=== PATIENT | female | born 1940 | race Caucasian/White ===

== ENCOUNTER 2017-06-27 01:00 | Inpatient (IN) ==
[2017-06-27] MEDS ORDERED: MORPHINE 2 MG/1 ML SYRINGE IV STA (02:45)
[2017-06-27] MEDS ORDERED: ALUM/MAG/SIMETH/LIDO VISC 1:1 30 ML BOTTLE PO STA (02:45)
[2017-06-27] MEDS ORDERED: ASPIRIN 325 MG TABLET PO STA (02:45)
[2017-06-27] MEDS ORDERED: SODIUM CHLORIDE 0.9% 500 ML IV STA (02:45)
[2017-06-27] MEDS ORDERED: NITROGLYCERIN 2% OINT 1 INCH/GM PACK TOP STA (02:45)
[2017-06-27] MEDS ORDERED: ONDANSETRON 4 MG/2 ML VIAL IV STA ×2 (02:45→06:48)
[2017-06-27] MEDS ORDERED: ASPIRIN 325 MG TABLET ONE (02:49)
[2017-06-27] MEDS ORDERED: MORPHINE 2 MG/1 ML SYRINGE ONE (02:49)
[2017-06-27] MEDS ORDERED: NITROGLYCERIN 2% OINT 1 INCH/GM PACK TOP ONE (02:49)
[2017-06-27] MEDS ORDERED: ONDANSETRON 4 MG/2 ML VIAL ONE ×2 (02:49→06:26)
[2017-06-27] MEDS ORDERED: ALUM/MAG/SIMETH/LIDO VISC 1:1 30 ML BOTTLE PO ONE (02:50)
[2017-06-27 02:53] LABS: Basophils # 0.1 10*3/uL (0.0-0.2); Basophils % 0.7 % (0.0-0.8); Eosinophils # 0.1 10*3/uL (0.0-0.87); Eosinophils % 1.9 % (0.00-10.9); Hematocrit 36.2 VOL% (35.7-47.0); Hemoglobin 11.6 GM/DL (12.0-16.0); Immature Granulocytes % 0.3 %; Immature Granulocytes Absolute 0.02 #; Lymphocytes # 1.1 10*3/uL (1.4-4.0); Lymphocytes % 16.4 % (21.3-54.2); Mean Corpuscular Hemoglobin 26 PG (27-34); Mean Corpuscular Volume 81.7 FL (87-102); Mean Platelet Volume 11.2 FL (9.6-12.0); Monocytes # 0.8 10*3/uL (0.11-0.8); Monocytes % 11.3 % (1.7-12.7); Neutrophils # 4.7 10*3/uL (1.4-7.4); Neutrophils % 69.4 % (38.7-73.9); Platelet Count 190 T/CUMM (130-400); Red Blood Count 4.43 MC/CUMM (3.8-5.5); Red Cell Distribution Width 17.2 % (9.3-17.3); White Blood Count 6.7 T/CUMM (4-12)
[2017-06-27 03:01] LABS: PT Patient Result 10.1 SECS
[2017-06-27 03:11] LABS: Albumin 3.5 G/DL (3.4-5.0); Bilirubin,Total 0.7 MG/DL (0.2-1.0); Calcium 8.6 MG/DL (8.5-10.1); Magnesium 2.2 MG/DL (1.8-2.4); Osmolality,Calculated 277.7 MOS/KG (273-304); Potassium 4.3 MMOL/L (3.5-5.1); Total Protein 6.3 G/DL (6.4-8.3)
[2017-06-27 03:26] LABS: Apearance,Urine CLEAR (Clear); Bilirubin,Urine Negative (Negative); Blood, Urine Small mg/dL (Negative); Glucose,Urine (UA) Negative (Negative); Ketones,Urine Negative (Negative); Mucus,Urine Occasional /LPF (Occasional); Nitrite,Urine Negative (Negative); Protein,Urine Negative; RBC,Urine 1 /HPF (0-4); Squamous Epithelial Cell,Urine Occasional /HPF (0-10); Urine Color Yellow (Yellow); Urine Specific Gravity 1.011 (1.001-1.035); Urine Urobilinogen < 2.0 EU/DL (0.2-1.0); WBC,Urine 3 /HPF (0-6)
[2017-06-27] MEDS ORDERED: cefTRIAXone 1,000 MG in SODIUM CHLORIDE 0.9% 100 ML IV STA (03:58)
[2017-06-27] MEDS ORDERED: cefTRIAXone 1,000 MG VIAL ONE (04:07)
[2017-06-27] MEDS ORDERED: SODIUM CHLORIDE 0.9% 100 ML IV ONE (04:07)
[2017-06-27] MEDS ORDERED: ONDANSETRON 4 MG/2 ML VIAL IV PRN (08:05)
[2017-06-27] MEDS ORDERED: MORPHINE 2 MG/1 ML SYRINGE IV PRN (08:05)
[2017-06-27] MEDS ORDERED: ACETAMINOPHEN 325 MG TABLET PO PRN (08:05)
[2017-06-27 08:58] LABS: Risk Ratio 8.64; Thyroid Stimulating Hormone 1.46 uIU/ml (0.358-3.74); VLDL CHOLESTEROL 64.4 MG/DL
[2017-06-27] MEDS ORDERED: ENOXAPARIN 80 MG/0.8 ML SYRINGE SUBCUT SCH (09:00)
[2017-06-27] MEDS ORDERED: ENOXAPARIN 80 MG/0.8 ML SYRINGE SUBCUT ONE (10:27)
[2017-06-27] MEDS ORDERED: ASPIRIN CHEW 81 MG TABLET PO ONE (10:27)
[2017-06-27] MEDS ORDERED: PANTOPRAZOLE 40 MG TABLET PO ONE (10:27)
[2017-06-27] MEDS ORDERED: DOCUSATE SODIUM 100 MG CAPSULE ONE (10:27)
[2017-06-27] MEDS: DOCUSATE SODIUM 100 MG CAPSULE PO SCH ×2 (10:28→20:24)
[2017-06-27] MEDS: PANTOPRAZOLE 40 MG TABLET PO SCH (10:28)
[2017-06-27] MEDS: CIPROFLOXACIN 250 MG TABLET PO SCH ×2 (11:10→20:24)
[2017-06-27] MEDS ORDERED: METOPROLOL SUCCINATE XL 25 MG TABLET PO ONE (15:40)
[2017-06-27] MEDS: ATORVASTATIN 40 MG TABLET PO SCH (18:33)
[2017-06-27] MEDS: APIXABAN 5 MG TABLET PO SCH (20:23)
[2017-06-27] MEDS: ASCORBIC ACID 500 MG TABLET PO SCH (20:24)
[2017-06-27] MEDS ORDERED: CLORAZEPATE 3.75 MG TABLET PO PRN (21:43)
[2017-06-28 05:37] LABS: Basophils % 0.3 % (0.0-0.8); Eosinophils # 0.1 10*3/uL (0.0-0.87); Eosinophils % 1.2 % (0.00-10.9); Hematocrit 36.6 VOL% (35.7-47.0); Hemoglobin 11.6 GM/DL (12.0-16.0); Immature Granulocytes % 0.5 %; Immature Granulocytes Absolute 0.03 #; Lymphocytes # 1.1 10*3/uL (1.4-4.0); Lymphocytes % 18.2 % (21.3-54.2); Mean Corpuscular HGB Conc 31.7 GM/DL (32-36); Mean Corpuscular Hemoglobin 26 PG (27-34); Mean Corpuscular Volume 81.7 FL (87-102); Mean Platelet Volume 11.2 FL (9.6-12.0); Monocytes # 0.5 10*3/uL (0.11-0.8); Monocytes % 8.8 % (1.7-12.7); Neutrophils # 4.2 10*3/uL (1.4-7.4); Platelet Count 190 T/CUMM (130-400); Red Blood Count 4.48 MC/CUMM (3.8-5.5); Red Cell Distribution Width 17.1 % (9.3-17.3); White Blood Count 5.9 T/CUMM (4-12)
[2017-06-28 06:02] LABS: Calcium 9.1 MG/DL (8.5-10.1); Magnesium 2.4 MG/DL (1.8-2.4); Osmolality,Calculated 281.5 MOS/KG (273-304); Potassium 4.5 MMOL/L (3.5-5.1)
[2017-06-28 06:12] LABS: Risk Ratio 7.58
[2017-06-28] MEDS ORDERED: DIGOXIN 0.125 MG TABLET PO SCH (09:00)
[2017-06-28] MEDS ORDERED: ASPIRIN CHEW 81 MG TABLET PO SCH (09:00)
[2017-06-28] MEDS: ASCORBIC ACID 500 MG TABLET PO SCH ×2 (09:23→22:09)
[2017-06-28] MEDS: LEVOTHYROXINE 112 MCG TABLET PO SCH (09:23)
[2017-06-28] MEDS: MAGNESIUM OXIDE 400 MG TABLET PO SCH (09:24)
[2017-06-28] MEDS: DILTIAZEM CD 180 MG CAPSULE PO SCH (09:25)
[2017-06-28] MEDS: PANTOPRAZOLE 40 MG TABLET PO SCH (09:25)
[2017-06-28] MEDS: APIXABAN 5 MG TABLET PO SCH ×2 (09:25→22:09)
[2017-06-28] MEDS: METOPROLOL SUCCINATE XL 50 MG TABLET PO SCH (09:26)
[2017-06-28] MEDS: DOCUSATE SODIUM 100 MG CAPSULE PO SCH ×3 (09:26→22:09)
[2017-06-28] MEDS: ATORVASTATIN 40 MG TABLET PO SCH (09:26)
[2017-06-28] MEDS: CIPROFLOXACIN 250 MG TABLET PO SCH ×2 (09:26→22:09)
[2017-06-28] MEDS ORDERED: PRAMIPEXOLE 0.25 MG TABLET PO SCH (21:00)
[2017-06-28] MEDS: clonazePAM 0.5 MG TABLET PO SCH (22:09)
[2017-06-29 05:04] LABS: Basophils % 0.6 % (0.0-0.8); Eosinophils # 0.1 10*3/uL (0.0-0.87); Eosinophils % 2.3 % (0.00-10.9); Hematocrit 35.3 VOL% (35.7-47.0); Hemoglobin 10.8 GM/DL (12.0-16.0); Immature Granulocytes % 0.2 %; Immature Granulocytes Absolute 0.01 #; Lymphocytes # 1.2 10*3/uL (1.4-4.0); Lymphocytes % 23.4 % (21.3-54.2); Mean Corpuscular HGB Conc 30.6 GM/DL (32-36); Mean Corpuscular Hemoglobin 25 PG (27-34); Mean Corpuscular Volume 82.7 FL (87-102); Mean Platelet Volume 10.6 FL (9.6-12.0); Monocytes # 0.5 10*3/uL (0.11-0.8); Monocytes % 10.2 % (1.7-12.7); Neutrophils # 3.3 10*3/uL (1.4-7.4); Neutrophils % 63.3 % (38.7-73.9); Platelet Count 215 T/CUMM (130-400); Red Blood Count 4.27 MC/CUMM (3.8-5.5); Red Cell Distribution Width 17.2 % (9.3-17.3); White Blood Count 5.2 T/CUMM (4-12)
[2017-06-29 05:30] LABS: Calcium 8.9 MG/DL (8.5-10.1); Magnesium 2.3 MG/DL (1.8-2.4); Osmolality,Calculated 282.3 MOS/KG (273-304); Potassium 4.3 MMOL/L (3.5-5.1)
[2017-06-29] MEDS: LEVOTHYROXINE 112 MCG TABLET PO SCH (06:25)
[2017-06-29] MEDS ORDERED: tiZANidine 4 MG TABLET PO SCH (09:00)
[2017-06-29] MEDS ORDERED: SERTRALINE 100 MG TABLET PO SCH (09:00)
[2017-06-29] MEDS: ASCORBIC ACID 500 MG TABLET PO SCH (09:22)
[2017-06-29] MEDS: ATORVASTATIN 40 MG TABLET PO SCH (09:22)
[2017-06-29] MEDS: DOCUSATE SODIUM 100 MG CAPSULE PO SCH (09:23)
[2017-06-29] MEDS: MAGNESIUM OXIDE 400 MG TABLET PO SCH (09:23)
[2017-06-29] MEDS: CIPROFLOXACIN 250 MG TABLET PO SCH (09:23)
[2017-06-29] MEDS: clonazePAM 0.5 MG TABLET PO SCH (09:23)
[2017-06-29] MEDS: PANTOPRAZOLE 40 MG TABLET PO SCH (09:24)
[2017-06-29] MEDS: METOPROLOL SUCCINATE XL 50 MG TABLET PO SCH (09:24)
[2017-06-29] MEDS: APIXABAN 5 MG TABLET PO SCH (09:24)
[2017-06-29] MEDS: DILTIAZEM CD 180 MG CAPSULE PO SCH (09:25)
[2017-06-29 16:56] VITALS: BP 92/50
== END 2017-06-29 17:54 | disposition home health service (06) | DRG 309 ==
LOC: EDUNIT# → EDBD → N.ED 01:00 → N.EDINP 05:57 → N.TELES 12:25
PROVIDERS: ADMIT Internal Medicine; ATTEND Internal Medicine

== ENCOUNTER 2017-07-03 10:06 | Inpatient (IN) ==
[2017-07-03] MEDS ORDERED: DILTIAZEM INJ 100 MG in SODIUM CHLORIDE 0.9% 100 ML IV SCH (11:00)
[2017-07-03 11:05] LABS: Basophils % 0.4 % (0.0-0.8); Eosinophils # 0.1 10*3/uL (0.0-0.87); Eosinophils % 1.4 % (0.00-10.9); Hematocrit 37.7 VOL% (35.7-47.0); Immature Granulocytes % 0.2 %; Immature Granulocytes Absolute 0.02 #; Lymphocytes # 1.1 10*3/uL (1.4-4.0); Lymphocytes % 11.2 % (21.3-54.2); Mean Corpuscular HGB Conc 31.8 GM/DL (32-36); Mean Corpuscular Hemoglobin 26 PG (27-34); Mean Corpuscular Volume 81.1 FL (87-102); Mean Platelet Volume 10.8 FL (9.6-12.0); Monocytes # 0.6 10*3/uL (0.11-0.8); Monocytes % 6.5 % (1.7-12.7); Neutrophils % 80.3 % (38.7-73.9); Platelet Count 261 T/CUMM (130-400); Red Blood Count 4.65 MC/CUMM (3.8-5.5); Red Cell Distribution Width 16.7 % (9.3-17.3); White Blood Count 9.9 T/CUMM (4-12)
[2017-07-03 11:10] LABS: PT Patient Result 10.5 SECS; Partial Thromboplastin Time 26.5 SECS (0-40)
[2017-07-03 11:22] LABS: Alanine Aminotransferase 22 U/L (13-56); Albumin 3.8 G/DL (3.4-5.0); Alkaline Phosphatase 103 U/L (45-117); Aspartate Amino Transferase 22 U/L (0-37); Blood Urea Nitrogen 13 MG/DL (7-18); Calcium 9.1 MG/DL (8.5-10.1); Glucose 150 MG/DL (74-106); Magnesium 1.8 MG/DL (1.8-2.4); Osmolality,Calculated 279.5 MOS/KG (273-304); Potassium 4.2 MMOL/L (3.5-5.1); Sodium 139 MMOL/L (136-145); Troponin I Only < 0.015 NG/ML (0.00-0.045)
[2017-07-03] MEDS ORDERED: DILTIAZEM 100 MG VIAL.ADD IV ONE ×2 (11:37→11:42)
[2017-07-03] MEDS: DILTIAZEM CD 180 MG CAPSULE PO SCH (18:00)
[2017-07-03 18:18] LABS: Apearance,Urine CLEAR (Clear); Bilirubin,Urine Negative (Negative); Blood, Urine Negative (Negative); Glucose,Urine (UA) Negative (Negative); Ketones,Urine Negative (Negative); Mucus,Urine Occasional /LPF (Occasional); Nitrite,Urine Negative (Negative); Protein,Urine Negative; RBC,Urine 4 /HPF (0-4); Squamous Epithelial Cell,Urine Occasional /HPF (0-10); Urine Color Yellow (Yellow); Urine Specific Gravity 1.053 (1.001-1.035); Urine Urobilinogen < 2.0 EU/DL (0.2-1.0); WBC,Urine 1 /HPF (0-6)
[2017-07-03] MEDS: clonazePAM 0.5 MG TABLET PO SCH (20:42)
[2017-07-03] MEDS: APIXABAN 5 MG TABLET PO SCH (20:42)
[2017-07-03] MEDS: PRAMIPEXOLE 0.25 MG TABLET PO SCH (20:42)
[2017-07-03] MEDS: ASCORBIC ACID 500 MG TABLET PO SCH (20:42)
[2017-07-04] MEDS: ONDANSETRON 4 MG/2 ML VIAL IV PRN (08:43)
[2017-07-04] MEDS: METOPROLOL SUCCINATE XL 50 MG TABLET PO SCH (09:17)
[2017-07-04] MEDS: ASCORBIC ACID 500 MG TABLET PO SCH ×2 (09:17→20:39)
[2017-07-04] MEDS: ATORVASTATIN 40 MG TABLET PO SCH (09:17)
[2017-07-04] MEDS: SERTRALINE 100 MG TABLET PO SCH (09:17)
[2017-07-04] MEDS: clonazePAM 0.5 MG TABLET PO SCH ×2 (09:18→20:39)
[2017-07-04] MEDS: APIXABAN 5 MG TABLET PO SCH ×2 (09:18→20:39)
[2017-07-04] MEDS: DILTIAZEM CD 180 MG CAPSULE PO SCH (09:19)
[2017-07-04] MEDS: LEVOTHYROXINE 112 MCG TABLET PO SCH (09:19)
[2017-07-04] MEDS: MAGNESIUM OXIDE 400 MG TABLET PO SCH (09:19)
[2017-07-04] MEDS: tiZANidine 4 MG TABLET PO SCH (09:19)
[2017-07-04 10:26] LABS: Basophils % 0.6 % (0.0-0.8); Eosinophils # 0.1 10*3/uL (0.0-0.87); Eosinophils % 1.8 % (0.00-10.9); Hematocrit 35.9 VOL% (35.7-47.0); Hemoglobin 11.2 GM/DL (12.0-16.0); Immature Granulocytes % 0.3 %; Immature Granulocytes Absolute 0.02 #; Lymphocytes # 0.8 10*3/uL (1.4-4.0); Lymphocytes % 12.3 % (21.3-54.2); Mean Corpuscular HGB Conc 31.2 GM/DL (32-36); Mean Corpuscular Hemoglobin 25 PG (27-34); Mean Corpuscular Volume 80.3 FL (87-102); Mean Platelet Volume 10.7 FL (9.6-12.0); Monocytes # 0.5 10*3/uL (0.11-0.8); Monocytes % 6.9 % (1.7-12.7); Neutrophils # 5.3 10*3/uL (1.4-7.4); Neutrophils % 78.1 % (38.7-73.9); Platelet Count 235 T/CUMM (130-400); Red Blood Count 4.47 MC/CUMM (3.8-5.5); Red Cell Distribution Width 16.5 % (9.3-17.3); White Blood Count 6.8 T/CUMM (4-12)
[2017-07-04 10:47] LABS: Calcium 9.3 MG/DL (8.5-10.1); Osmolality,Calculated 280.4 MOS/KG (273-304); Potassium 4.3 MMOL/L (3.5-5.1)
[2017-07-04] MEDS: DIGOXIN 0.125 MG TABLET PO SCH (15:02)
[2017-07-04] MEDS: PRAMIPEXOLE 0.25 MG TABLET PO SCH (20:39)
[2017-07-04] MEDS ORDERED: HALOPERIDOL 5 MG/ML AMP IM ONE (22:32)
[2017-07-05] MEDS: ONDANSETRON 4 MG/2 ML VIAL IV PRN (00:15)
[2017-07-05] MEDS: ACETAMINOPHEN 325 MG TABLET PO PRN (01:50)
[2017-07-05 04:43] LABS: Basophils % 0.4 % (0.0-0.8); Eosinophils # 0.1 10*3/uL (0.0-0.87); Eosinophils % 1.6 % (0.00-10.9); Hematocrit 34.4 VOL% (35.7-47.0); Hemoglobin 10.6 GM/DL (12.0-16.0); Immature Granulocytes % 0.3 %; Immature Granulocytes Absolute 0.02 #; Lymphocytes # 1.3 10*3/uL (1.4-4.0); Lymphocytes % 15.8 % (21.3-54.2); Mean Corpuscular HGB Conc 30.8 GM/DL (32-36); Mean Corpuscular Hemoglobin 26 PG (27-34); Mean Corpuscular Volume 83.1 FL (87-102); Mean Platelet Volume 10.3 FL (9.6-12.0); Monocytes # 0.7 10*3/uL (0.11-0.8); Monocytes % 8.3 % (1.7-12.7); Neutrophils # 5.9 10*3/uL (1.4-7.4); Neutrophils % 73.6 % (38.7-73.9); Platelet Count 219 T/CUMM (130-400); Red Blood Count 4.14 MC/CUMM (3.8-5.5); Red Cell Distribution Width 16.7 % (9.3-17.3)
[2017-07-05 05:14] LABS: Magnesium 2.1 MG/DL (1.8-2.4); Osmolality,Calculated 283.3 MOS/KG (273-304); Potassium 4.2 MMOL/L (3.5-5.1)
[2017-07-05] MEDS: MAGNESIUM OXIDE 400 MG TABLET PO SCH (09:26)
[2017-07-05] MEDS: ATORVASTATIN 40 MG TABLET PO SCH (09:26)
[2017-07-05] MEDS: ASCORBIC ACID 500 MG TABLET PO SCH ×2 (09:26→20:41)
[2017-07-05] MEDS: SERTRALINE 100 MG TABLET PO SCH (09:27)
[2017-07-05] MEDS: tiZANidine 4 MG TABLET PO SCH (09:27)
[2017-07-05] MEDS: DILTIAZEM CD 180 MG CAPSULE PO SCH (09:28)
[2017-07-05] MEDS: LEVOTHYROXINE 112 MCG TABLET PO SCH (09:28)
[2017-07-05] MEDS: clonazePAM 0.5 MG TABLET PO SCH ×2 (09:28→20:42)
[2017-07-05] MEDS: APIXABAN 5 MG TABLET PO SCH ×2 (09:28→20:42)
[2017-07-05] MEDS: METOPROLOL SUCCINATE XL 50 MG TABLET PO SCH ×2 (09:28→14:27)
[2017-07-05] MEDS: DILTIAZEM CD 240 MG CAPSULE PO SCH (14:26)
[2017-07-05] MEDS: DIGOXIN 0.125 MG TABLET PO SCH (15:05)
[2017-07-05] MEDS: PRAMIPEXOLE 0.25 MG TABLET PO SCH (20:42)
[2017-07-06] MEDS: ACETAMINOPHEN 325 MG TABLET PO PRN (00:58)
[2017-07-06] MEDS: LEVOTHYROXINE 112 MCG TABLET PO SCH (06:18)
[2017-07-06 08:37] VITALS: BP 161/64
[2017-07-06] MEDS: DILTIAZEM CD 240 MG CAPSULE PO SCH (09:13)
[2017-07-06] MEDS: ASCORBIC ACID 500 MG TABLET PO SCH (09:13)
[2017-07-06] MEDS: ATORVASTATIN 40 MG TABLET PO SCH (09:14)
[2017-07-06] MEDS: METOPROLOL SUCCINATE XL 50 MG TABLET PO SCH (09:14)
[2017-07-06] MEDS: SERTRALINE 100 MG TABLET PO SCH (09:14)
[2017-07-06] MEDS: APIXABAN 5 MG TABLET PO SCH (09:14)
[2017-07-06] MEDS: MAGNESIUM OXIDE 400 MG TABLET PO SCH (09:14)
[2017-07-06] MEDS: tiZANidine 4 MG TABLET PO SCH (09:15)
[2017-07-06] MEDS: clonazePAM 0.5 MG TABLET PO SCH (09:15)
== END 2017-07-06 10:50 | disposition home health service (06) | DRG 310 ==
LOC: N.ED 10:06 → N.EDINP 14:59 → N.TELEN 15:58

== ENCOUNTER 2017-07-27 10:54 | Observation (INO) ==
[2017-07-27] MEDS ORDERED: ASPIRIN 325 MG TABLET PO STA (11:10)
[2017-07-27 11:21] LABS: Basophils % 0.2 % (0.0-0.8); Eosinophils # 0.2 10*3/uL (0.0-0.87); Eosinophils % 2.4 % (0.00-10.9); Hematocrit 35.4 VOL% (35.7-47.0); Hemoglobin 10.9 GM/DL (12.0-16.0); Immature Granulocytes % 0.3 %; Immature Granulocytes Absolute 0.03 #; Lymphocytes # 1.4 10*3/uL (1.4-4.0); Lymphocytes % 15.9 % (21.3-54.2); Mean Corpuscular HGB Conc 30.8 GM/DL (32-36); Mean Corpuscular Hemoglobin 25 PG (27-34); Mean Corpuscular Volume 82.3 FL (87-102); Mean Platelet Volume 10.1 FL (9.6-12.0); Monocytes # 0.7 10*3/uL (0.11-0.8); Monocytes % 7.9 % (1.7-12.7); Neutrophils # 6.6 10*3/uL (1.4-7.4); Neutrophils % 73.3 % (38.7-73.9); Platelet Count 263 T/CUMM (130-400); Red Cell Distribution Width 17.1 % (9.3-17.3)
[2017-07-27 11:28] LABS: PT Patient Result 10.8 SECS; Partial Thromboplastin Time 27.5 SECS (0-40)
[2017-07-27] MEDS ORDERED: ASPIRIN 325 MG TABLET ONE (11:46)
[2017-07-27 11:54] LABS: Albumin 3.6 G/DL (3.4-5.0); Bilirubin,Total 0.8 MG/DL (0.2-1.0); Calcium 8.7 MG/DL (8.5-10.1); Osmolality,Calculated 279.7 MOS/KG (273-304); Potassium 4.3 MMOL/L (3.5-5.1); Total Protein 6.7 G/DL (6.4-8.3)
[2017-07-27 12:38] LABS: Apearance,Urine CLEAR (Clear); Bilirubin,Urine Negative (Negative); Blood, Urine Negative (Negative); Glucose,Urine (UA) Negative (Negative); Hyaline Casts,Urine 1 /LPF (0-3); Ketones,Urine Negative (Negative); Mucus,Urine Occasional /LPF (Occasional); Nitrite,Urine Negative (Negative); Protein,Urine Negative; RBC,Urine 1 /HPF (0-4); Urine Color Yellow (Yellow); Urine Specific Gravity 1.013 (1.001-1.035); Urine Urobilinogen < 2.0 EU/DL (0.2-1.0); WBC,Urine <1 /HPF (0-6)
[2017-07-27] MEDS ORDERED: ONDANSETRON 4 MG/2 ML VIAL IV PRN (14:40)
[2017-07-27] MEDS ORDERED: MORPHINE 10 MG/1 ML VIAL IV PRN (14:40)
[2017-07-27] MEDS ORDERED: DOCUSATE SODIUM 100 MG CAPSULE PO PRN (14:40)
[2017-07-27] MEDS ORDERED: diphenhydrAMINE CAP 25 MG CAPSULE PO PRN (14:40)
[2017-07-27] MEDS ORDERED: guaiFENesin/DM ER 600-30 MG TABLET PO PRN (14:40)
[2017-07-27] MEDS ORDERED: ACETAMINOPHEN 325 MG TABLET PO PRN ×2 (14:40)
[2017-07-27] MEDS ORDERED: traMADol 50 MG TABLET PO PRN (14:47)
[2017-07-27] MEDS ORDERED: tiZANidine 4 MG TABLET PO PRN (14:47)
[2017-07-27] MEDS ORDERED: ENOXAPARIN 30 MG/0.3 ML SYRINGE SUBCUT SCH (15:00)
[2017-07-27 15:28] LABS: Risk Ratio 3.05; VLDL CHOLESTEROL 42.2 MG/DL
[2017-07-27 16:11] LABS: Troponin I Only < 0.015 NG/ML (0.00-0.045)
[2017-07-27] MEDS: clonazePAM 0.5 MG TABLET PO SCH ×3 (16:42→20:31)
[2017-07-27] MEDS: PANTOPRAZOLE 40 MG TABLET PO SCH ×2 (16:43→16:57)
[2017-07-27] MEDS: SODIUM CHLORIDE 0.9% 1,000 ML IV SCH (16:58)
[2017-07-27 18:31] LABS: Troponin I Only < 0.015 NG/ML (0.00-0.045)
[2017-07-27] MEDS: APIXABAN 5 MG TABLET PO SCH (20:31)
[2017-07-27] MEDS ORDERED: PRAMIPEXOLE 0.25 MG TABLET PO SCH (21:00)
[2017-07-27] MEDS ORDERED: SERTRALINE 100 MG TABLET PO SCH (21:00)
[2017-07-27 21:06] LABS: Troponin I Only 0.016 NG/ML (0.00-0.045)
[2017-07-28 00:01] LABS: Troponin I Only < 0.015 NG/ML (0.00-0.045)
[2017-07-28 05:24] LABS: Basophils % 0.4 % (0.0-0.8); Eosinophils # 0.2 10*3/uL (0.0-0.87); Hematocrit 33.5 VOL% (35.7-47.0); Hemoglobin 10.6 GM/DL (12.0-16.0); Immature Granulocytes % 0.4 %; Immature Granulocytes Absolute 0.03 #; Lymphocytes # 1.1 10*3/uL (1.4-4.0); Lymphocytes % 13.9 % (21.3-54.2); Mean Corpuscular HGB Conc 31.6 GM/DL (32-36); Mean Corpuscular Hemoglobin 26 PG (27-34); Mean Corpuscular Volume 81.9 FL (87-102); Mean Platelet Volume 10.7 FL (9.6-12.0); Monocytes # 0.5 10*3/uL (0.11-0.8); Neutrophils # 5.8 10*3/uL (1.4-7.4); Neutrophils % 76.3 % (38.7-73.9); Platelet Count 210 T/CUMM (130-400); Red Blood Count 4.09 MC/CUMM (3.8-5.5); Red Cell Distribution Width 17.2 % (9.3-17.3); White Blood Count 7.5 T/CUMM (4-12)
[2017-07-28 05:54] LABS: Calcium 8.2 MG/DL (8.5-10.1); Osmolality,Calculated 284.3 MOS/KG (273-304); Potassium 4.7 MMOL/L (3.5-5.1)
[2017-07-28] MEDS: SODIUM CHLORIDE 0.9% 1,000 ML IV SCH (05:59)
[2017-07-28] MEDS ORDERED: LEVOTHYROXINE 112 MCG TABLET PO SCH (06:30)
[2017-07-28] MEDS ORDERED: MAGNESIUM OXIDE 400 MG TABLET PO SCH (09:00)
[2017-07-28] MEDS ORDERED: ATORVASTATIN 40 MG TABLET PO SCH (09:00)
[2017-07-28] MEDS ORDERED: DILTIAZEM CD 240 MG CAPSULE PO SCH (09:00)
[2017-07-28] MEDS ORDERED: DILTIAZEM CD 180 MG CAPSULE PO SCH (10:00)
[2017-07-28] MEDS: clonazePAM 0.5 MG TABLET PO SCH (10:12)
[2017-07-28] MEDS: PANTOPRAZOLE 40 MG TABLET PO SCH (10:13)
[2017-07-28] MEDS: APIXABAN 5 MG TABLET PO SCH (10:13)
[2017-07-28 11:37] VITALS: BP 147/86
== END 2017-07-28 12:03 | disposition home or self-care (01) ==
LOC: EDBD → EDUNIT# → N.ED 10:54 → N.EDINP 10:54 → N.TELEN 15:35

== ENCOUNTER 2017-08-03 04:31 | Inpatient (IN) ==
[2017-08-03] MEDS ORDERED: KETOROLAC 30 MG/1 ML VIAL IV STA (05:27)
[2017-08-03 05:39] LABS: Basophils % 0.4 % (0.0-0.8); Eosinophils # 0.2 10*3/uL (0.0-0.87); Eosinophils % 2.6 % (0.00-10.9); Hematocrit 35.2 VOL% (35.7-47.0); Hemoglobin 10.8 GM/DL (12.0-16.0); Immature Granulocytes % 0.5 %; Immature Granulocytes Absolute 0.04 #; Lymphocytes # 1.1 10*3/uL (1.4-4.0); Lymphocytes % 12.4 % (21.3-54.2); Mean Corpuscular HGB Conc 30.7 GM/DL (32-36); Mean Corpuscular Hemoglobin 26 PG (27-34); Mean Corpuscular Volume 83.4 FL (87-102); Mean Platelet Volume 11.1 FL (9.6-12.0); Monocytes # 0.6 10*3/uL (0.11-0.8); Monocytes % 6.5 % (1.7-12.7); Neutrophils # 6.7 10*3/uL (1.4-7.4); Neutrophils % 77.6 % (38.7-73.9); Platelet Count 234 T/CUMM (130-400); Red Blood Count 4.22 MC/CUMM (3.8-5.5); Red Cell Distribution Width 17.3 % (9.3-17.3); White Blood Count 8.6 T/CUMM (4-12)
[2017-08-03 05:51] LABS: Albumin 3.6 G/DL (3.4-5.0); Bilirubin,Total 1.1 MG/DL (0.2-1.0); Calcium 8.6 MG/DL (8.5-10.1); Osmolality,Calculated 282.5 MOS/KG (273-304); Potassium 4.7 MMOL/L (3.5-5.1); Total Protein 6.9 G/DL (6.4-8.3)
[2017-08-03] MEDS ORDERED: KETOROLAC 30 MG/1 ML VIAL ONE (05:58)
[2017-08-03] MEDS ORDERED: GLUCAGON 1 MG VIAL IM PRN (08:03)
[2017-08-03] MEDS ORDERED: ONDANSETRON 4 MG/2 ML VIAL IV PRN (08:03)
[2017-08-03] MEDS ORDERED: DEXTROSE 50% 25 GM/50 ML VIAL IV PRN (08:03)
[2017-08-03] MEDS ORDERED: SODIUM CHLORIDE 0.9% 1,000 ML IV SCH (08:30)
[2017-08-03] MEDS: APIXABAN 5 MG TABLET PO SCH ×2 (11:07→21:01)
[2017-08-03] MEDS: PANTOPRAZOLE 40 MG TABLET PO SCH (11:07)
[2017-08-03] MEDS: ATORVASTATIN 40 MG TABLET PO SCH (11:08)
[2017-08-03] MEDS ORDERED: FUROSEMIDE 20 MG/2 ML VIAL IV ONE (12:30)
[2017-08-03] MEDS: INSULIN LISPRO 100 UNIT/ML SUBCUT SCH ×3 (12:43→21:04)
[2017-08-03 15:03] LABS: Apearance,Urine CLEAR (Clear); Bacteria,Urine Occasional /HPF (Few); Bilirubin,Urine Negative (Negative); Blood, Urine Negative (Negative); Glucose,Urine (UA) Negative (Negative); Hyaline Casts,Urine 2 /LPF (0-3); Ketones,Urine Negative (Negative); Mucus,Urine Occasional /LPF (Occasional); Nitrite,Urine Negative (Negative); Protein,Urine Negative; RBC,Urine 1 /HPF (0-4); Squamous Epithelial Cell,Urine Occasional /HPF (0-10); Urine Color Yellow (Yellow); Urine Specific Gravity 1.009 (1.001-1.035); Urine Urobilinogen < 2.0 EU/DL (0.2-1.0); WBC,Urine 3 /HPF (0-6)
[2017-08-03] MEDS: SERTRALINE 50 MG TABLET PO SCH (21:01)
[2017-08-03] MEDS: ASCORBIC ACID 500 MG TABLET PO SCH (21:01)
[2017-08-04 06:32] LABS: Basophils % 0.4 % (0.0-0.8); Eosinophils # 0.1 10*3/uL (0.0-0.87); Eosinophils % 1.7 % (0.00-10.9); Hematocrit 32.1 VOL% (35.7-47.0); Immature Granulocytes % 0.4 %; Immature Granulocytes Absolute 0.03 #; Lymphocytes # 0.7 10*3/uL (1.4-4.0); Lymphocytes % 9.9 % (21.3-54.2); Mean Corpuscular HGB Conc 31.2 GM/DL (32-36); Mean Corpuscular Hemoglobin 25 PG (27-34); Mean Corpuscular Volume 80.5 FL (87-102); Monocytes # 0.5 10*3/uL (0.11-0.8); Monocytes % 6.3 % (1.7-12.7); Neutrophils # 6.1 10*3/uL (1.4-7.4); Neutrophils % 81.3 % (38.7-73.9); Platelet Count 233 T/CUMM (130-400); Red Blood Count 3.99 MC/CUMM (3.8-5.5); Red Cell Distribution Width 17.1 % (9.3-17.3); White Blood Count 7.5 T/CUMM (4-12)
[2017-08-04 07:00] LABS: Calcium 8.4 MG/DL (8.5-10.1); Osmolality,Calculated 281.7 MOS/KG (273-304); Potassium 4.4 MMOL/L (3.5-5.1)
[2017-08-04] MEDS: LEVOTHYROXINE 112 MCG TABLET PO SCH ×2 (08:18→09:56)
[2017-08-04] MEDS: INSULIN LISPRO 100 UNIT/ML SUBCUT SCH ×4 (08:18→22:10)
[2017-08-04] MEDS: PANTOPRAZOLE 40 MG TABLET PO SCH (09:56)
[2017-08-04] MEDS: ATORVASTATIN 40 MG TABLET PO SCH (09:56)
[2017-08-04] MEDS: APIXABAN 5 MG TABLET PO SCH ×2 (09:56→21:26)
[2017-08-04] MEDS: MAGNESIUM OXIDE 400 MG TABLET PO SCH (09:56)
[2017-08-04] MEDS: ASCORBIC ACID 500 MG TABLET PO SCH ×2 (09:56→21:26)
[2017-08-04] MEDS ORDERED: METOPROLOL SUCCINATE XL 25 MG TABLET PO SCH (15:00)
[2017-08-04] MEDS: ACETAMINOPHEN 325 MG TABLET PO PRN (17:49)
[2017-08-04] MEDS: SERTRALINE 50 MG TABLET PO SCH (21:26)
[2017-08-04] MEDS: METOPROLOL SUCCINATE XL 25 MG TABLET PO SCH (21:26)
[2017-08-05] MEDS: ACETAMINOPHEN 325 MG TABLET PO PRN ×2 (01:28→11:28)
[2017-08-05 05:13] LABS: Basophils % 0.3 % (0.0-0.8); Eosinophils # 0.1 10*3/uL (0.0-0.87); Eosinophils % 1.3 % (0.00-10.9); Hematocrit 33.3 VOL% (35.7-47.0); Hemoglobin 10.6 GM/DL (12.0-16.0); Immature Granulocytes % 0.8 %; Immature Granulocytes Absolute 0.08 #; Lymphocytes # 1.1 10*3/uL (1.4-4.0); Mean Corpuscular HGB Conc 31.8 GM/DL (32-36); Mean Corpuscular Hemoglobin 26 PG (27-34); Mean Corpuscular Volume 80.6 FL (87-102); Mean Platelet Volume 10.5 FL (9.6-12.0); Monocytes # 0.7 10*3/uL (0.11-0.8); Monocytes % 7.5 % (1.7-12.7); Neutrophils # 7.4 10*3/uL (1.4-7.4); Neutrophils % 78.1 % (38.7-73.9); Platelet Count 261 T/CUMM (130-400); Red Blood Count 4.13 MC/CUMM (3.8-5.5); Red Cell Distribution Width 17.3 % (9.3-17.3); White Blood Count 9.4 T/CUMM (4-12)
[2017-08-05 05:53] LABS: Calcium 8.9 MG/DL (8.5-10.1); Osmolality,Calculated 285.3 MOS/KG (273-304); Potassium 4.2 MMOL/L (3.5-5.1)
[2017-08-05] MEDS: LEVOTHYROXINE 112 MCG TABLET PO SCH (06:15)
[2017-08-05] MEDS: INSULIN LISPRO 100 UNIT/ML SUBCUT SCH ×4 (07:53→21:04)
[2017-08-05] MEDS: MAGNESIUM OXIDE 400 MG TABLET PO SCH (09:54)
[2017-08-05] MEDS: ATORVASTATIN 40 MG TABLET PO SCH (09:54)
[2017-08-05] MEDS: METOPROLOL SUCCINATE XL 25 MG TABLET PO SCH ×2 (09:54→21:03)
[2017-08-05] MEDS: clonazePAM 0.5 MG TABLET PO SCH ×2 (09:54→21:02)
[2017-08-05] MEDS: PANTOPRAZOLE 40 MG TABLET PO SCH (09:54)
[2017-08-05] MEDS: ASCORBIC ACID 500 MG TABLET PO SCH ×2 (09:54→21:03)
[2017-08-05] MEDS: APIXABAN 5 MG TABLET PO SCH ×2 (09:54→21:03)
[2017-08-05] MEDS ORDERED: METOPROLOL TARTRATE 50 MG TABLET PO ONE (10:30)
[2017-08-05] MEDS: DILTIAZEM CD 120 MG CAPSULE PO SCH ×2 (11:28→21:02)
[2017-08-05] MEDS: SERTRALINE 50 MG TABLET PO SCH (21:03)
[2017-08-06 06:28] LABS: Basophils # 0.1 10*3/uL (0.0-0.2); Basophils % 0.5 % (0.0-0.8); Eosinophils # 0.2 10*3/uL (0.0-0.87); Eosinophils % 1.3 % (0.00-10.9); Hematocrit 35.1 VOL% (35.7-47.0); Hemoglobin 10.7 GM/DL (12.0-16.0); Immature Granulocytes % 0.3 %; Immature Granulocytes Absolute 0.04 #; Lymphocytes # 1.2 10*3/uL (1.4-4.0); Mean Corpuscular HGB Conc 30.5 GM/DL (32-36); Mean Corpuscular Hemoglobin 25 PG (27-34); Mean Corpuscular Volume 82.6 FL (87-102); Monocytes # 0.7 10*3/uL (0.11-0.8); Neutrophils # 9.4 10*3/uL (1.4-7.4); Neutrophils % 81.9 % (38.7-73.9); Platelet Count 282 T/CUMM (130-400); Red Blood Count 4.25 MC/CUMM (3.8-5.5); Red Cell Distribution Width 17.7 % (9.3-17.3); White Blood Count 11.5 T/CUMM (4-12)
[2017-08-06 06:55] LABS: Calcium 9.2 MG/DL (8.5-10.1); Osmolality,Calculated 284.4 MOS/KG (273-304); Potassium 4.2 MMOL/L (3.5-5.1)
[2017-08-06] MEDS: INSULIN LISPRO 100 UNIT/ML SUBCUT SCH ×2 (07:33→11:36)
[2017-08-06] MEDS: LEVOTHYROXINE 112 MCG TABLET PO SCH (07:42)
[2017-08-06] MEDS: clonazePAM 0.5 MG TABLET PO SCH (10:07)
[2017-08-06] MEDS: PANTOPRAZOLE 40 MG TABLET PO SCH (10:08)
[2017-08-06] MEDS: MAGNESIUM OXIDE 400 MG TABLET PO SCH (10:08)
[2017-08-06] MEDS: METOPROLOL SUCCINATE XL 25 MG TABLET PO SCH (10:08)
[2017-08-06] MEDS: DILTIAZEM CD 120 MG CAPSULE PO SCH (10:08)
[2017-08-06] MEDS: ASCORBIC ACID 500 MG TABLET PO SCH (10:08)
[2017-08-06] MEDS: ATORVASTATIN 40 MG TABLET PO SCH (10:09)
[2017-08-06] MEDS: APIXABAN 5 MG TABLET PO SCH (10:09)
[2017-08-06 12:54] VITALS: BP 127/82
== END 2017-08-06 14:20 | disposition home or self-care (01) | DRG 918 ==
LOC: EDUNIT# → EDBD → N.ED 04:31 → N.EDINP 07:06 → N.2E 09:11
PROVIDERS: ADMIT Hospitalist; ATTEND Hospitalist

== ENCOUNTER 2017-08-10 09:06 | Inpatient (IN) ==
[2017-08-10] MEDS ORDERED: PANTOPRAZOLE 40 MG VIAL IV STA (11:18)
[2017-08-10] MEDS ORDERED: SODIUM CHLORIDE 0.9% 500 ML IV STA (11:18)
[2017-08-10] MEDS ORDERED: ONDANSETRON 4 MG/2 ML VIAL IV STA (11:18)
[2017-08-10 12:34] LABS: Basophils % 0.3 % (0.0-0.8); Eosinophils # 0.1 10*3/uL (0.0-0.87); Eosinophils % 1.4 % (0.00-10.9); Hematocrit 35.3 VOL% (35.7-47.0); Hemoglobin 11.3 GM/DL (12.0-16.0); Immature Granulocytes % 0.5 %; Immature Granulocytes Absolute 0.03 #; Lymphocytes % 15.3 % (21.3-54.2); Mean Corpuscular Hemoglobin 26 PG (27-34); Mean Corpuscular Volume 80.6 FL (87-102); Mean Platelet Volume 10.2 FL (9.6-12.0); Monocytes # 0.6 10*3/uL (0.11-0.8); Monocytes % 8.8 % (1.7-12.7); Neutrophils # 4.6 10*3/uL (1.4-7.4); Neutrophils % 73.7 % (38.7-73.9); Platelet Count 253 T/CUMM (130-400); Red Blood Count 4.38 MC/CUMM (3.8-5.5); Red Cell Distribution Width 17.5 % (9.3-17.3); White Blood Count 6.3 T/CUMM (4-12)
[2017-08-10 12:42] LABS: PT Patient Result 10.5 SECS
[2017-08-10 12:56] LABS: Alanine Aminotransferase 23 U/L (13-56); Albumin 3.7 G/DL (3.4-5.0); Alkaline Phosphatase 104 U/L (45-117); Aspartate Amino Transferase 21 U/L (0-37); Blood Urea Nitrogen 20 MG/DL (7-18); Calcium 8.9 MG/DL (8.5-10.1); Glucose 83 MG/DL (74-106); Magnesium 2.2 MG/DL (1.8-2.4); Sodium 141 MMOL/L (136-145); Total Protein 7.1 G/DL (6.4-8.3)
[2017-08-10 12:57] LABS: Osmolality,Calculated 282.3 MOS/KG (273-304); Troponin I Only < 0.015 NG/ML (0.00-0.045)
[2017-08-10 13:06] LABS: Ammonia 19 UMOL/L (11-32); Barbiturates Screen,Urine Negative (Negative); Benzodiazepines Screen,Urine Positive (Negative); Cannabinoid Screen,Urine Negative (Negative); Opiate Screen,Urine Negative (Negative); Phencyclidine Screen,Urine Negative (Negative)
[2017-08-10] MEDS ORDERED: PANTOPRAZOLE 40 MG VIAL IV ONE (13:13)
[2017-08-10] MEDS ORDERED: ONDANSETRON 4 MG/2 ML VIAL ONE (13:13)
[2017-08-10] MEDS ORDERED: ONDANSETRON 4 MG/2 ML VIAL IV PRN (14:49)
[2017-08-10] MEDS ORDERED: diphenhydrAMINE CAP 25 MG CAPSULE PO PRN (14:49)
[2017-08-10] MEDS ORDERED: MORPHINE 2 MG/1 ML SYRINGE IV PRN (14:49)
[2017-08-10] MEDS ORDERED: guaiFENesin/DM ER 600-30 MG TABLET PO PRN (14:49)
[2017-08-10 15:24] LABS: Apearance,Urine CLOUDY (Clear); Bilirubin,Urine Negative (Negative); Blood, Urine Negative (Negative); Glucose,Urine (UA) Negative (Negative); Ketones,Urine Negative (Negative); Mucus,Urine Occasional /LPF (Occasional); Nitrite,Urine Negative (Negative); Protein,Urine 30 MG/DL; RBC,Urine <1 /HPF (0-4); Urine Color Yellow (Yellow); Urine Specific Gravity 1.019 (1.001-1.035); Urine Urobilinogen < 2.0 EU/DL (0.2-1.0); WBC,Urine 1 /HPF (0-6)
[2017-08-10 16:31] LABS: Hemoglobin 10.4 GM/DL (12.0-16.0)
[2017-08-10] MEDS: SODIUM CHLORIDE 0.9% 1,000 ML IV SCH (17:16)
[2017-08-10] MEDS: ASCORBIC ACID 500 MG TABLET PO SCH ×2 (17:23→20:37)
[2017-08-10] MEDS: clonazePAM 0.5 MG TABLET PO SCH ×2 (17:24→20:37)
[2017-08-10] MEDS: METOPROLOL SUCCINATE XL 25 MG TABLET PO SCH ×2 (17:24→20:38)
[2017-08-10] MEDS: PANTOPRAZOLE 40 MG TABLET PO SCH ×2 (17:24→20:38)
[2017-08-10] MEDS: ACETAMINOPHEN 325 MG TABLET PO PRN ×2 (17:25→22:51)
[2017-08-10] MEDS: SERTRALINE 100 MG TABLET PO SCH (20:38)
[2017-08-10] MEDS: PRAMIPEXOLE 0.25 MG TABLET PO SCH (20:38)
[2017-08-10 21:13] LABS: Hematocrit 33.8 VOL% (35.7-47.0); Hemoglobin 10.4 GM/DL (12.0-16.0)
[2017-08-11] MEDS: SODIUM CHLORIDE 0.9% 1,000 ML IV SCH ×3 (00:04→16:35)
[2017-08-11] MEDS: LEVOTHYROXINE 112 MCG TABLET PO SCH (06:32)
[2017-08-11 07:21] LABS: Basophils % 0.3 % (0.0-0.8); Eosinophils # 0.2 10*3/uL (0.0-0.87); Eosinophils % 2.7 % (0.00-10.9); Hematocrit 32.9 VOL% (35.7-47.0); Hemoglobin 10.2 GM/DL (12.0-16.0); Immature Granulocytes % 0.5 %; Immature Granulocytes Absolute 0.03 #; Lymphocytes # 1.1 10*3/uL (1.4-4.0); Lymphocytes % 16.1 % (21.3-54.2); Mean Corpuscular Hemoglobin 25 PG (27-34); Mean Corpuscular Volume 81.6 FL (87-102); Mean Platelet Volume 11.1 FL (9.6-12.0); Monocytes # 0.5 10*3/uL (0.11-0.8); Monocytes % 8.1 % (1.7-12.7); Neutrophils # 4.8 10*3/uL (1.4-7.4); Neutrophils % 72.3 % (38.7-73.9); Platelet Count 234 T/CUMM (130-400); Red Blood Count 4.03 MC/CUMM (3.8-5.5); Red Cell Distribution Width 17.4 % (9.3-17.3); White Blood Count 6.6 T/CUMM (4-12)
[2017-08-11 07:26] LABS: PT Patient Result 10.1 SECS
[2017-08-11 09:20] LABS: Hemoglobin 10.1 GM/DL (12.0-16.0)
[2017-08-11] MEDS: ASCORBIC ACID 500 MG TABLET PO SCH ×2 (13:25→20:46)
[2017-08-11] MEDS: METOPROLOL SUCCINATE XL 25 MG TABLET PO SCH ×2 (13:26→20:48)
[2017-08-11] MEDS: PANTOPRAZOLE 40 MG TABLET PO SCH ×2 (13:26→20:47)
[2017-08-11] MEDS: clonazePAM 0.5 MG TABLET PO SCH ×2 (13:26→20:49)
[2017-08-11] MEDS: ATORVASTATIN 40 MG TABLET PO SCH (13:26)
[2017-08-11] MEDS: MAGNESIUM OXIDE 400 MG TABLET PO SCH (13:26)
[2017-08-11] MEDS: DILTIAZEM CD 240 MG CAPSULE PO SCH (13:26)
[2017-08-11] MEDS: SERTRALINE 100 MG TABLET PO SCH (20:47)
[2017-08-11] MEDS: PRAMIPEXOLE 0.25 MG TABLET PO SCH (20:48)
[2017-08-11] MEDS: ACETAMINOPHEN 325 MG TABLET PO PRN (20:55)
[2017-08-12] MEDS: SODIUM CHLORIDE 0.9% 1,000 ML IV SCH ×3 (00:35→15:01)
[2017-08-12] MEDS: LEVOTHYROXINE 112 MCG TABLET PO SCH (06:13)
[2017-08-12 06:37] LABS: Basophils % 0.3 % (0.0-0.8); Eosinophils # 0.2 10*3/uL (0.0-0.87); Eosinophils % 2.7 % (0.00-10.9); Hematocrit 31.3 VOL% (35.7-47.0); Hemoglobin 9.8 GM/DL (12.0-16.0); Immature Granulocytes % 0.6 %; Immature Granulocytes Absolute 0.04 #; Lymphocytes % 15.7 % (21.3-54.2); Mean Corpuscular HGB Conc 31.3 GM/DL (32-36); Mean Corpuscular Hemoglobin 25 PG (27-34); Mean Corpuscular Volume 80.7 FL (87-102); Mean Platelet Volume 10.3 FL (9.6-12.0); Monocytes # 0.4 10*3/uL (0.11-0.8); Monocytes % 6.9 % (1.7-12.7); Neutrophils # 4.6 10*3/uL (1.4-7.4); Neutrophils % 73.8 % (38.7-73.9); Platelet Count 246 T/CUMM (130-400); Red Blood Count 3.88 MC/CUMM (3.8-5.5); Red Cell Distribution Width 17.3 % (9.3-17.3); White Blood Count 6.2 T/CUMM (4-12)
[2017-08-12] MEDS: DILTIAZEM CD 240 MG CAPSULE PO SCH (09:28)
[2017-08-12] MEDS: ATORVASTATIN 40 MG TABLET PO SCH (09:28)
[2017-08-12] MEDS: METOPROLOL SUCCINATE XL 25 MG TABLET PO SCH ×2 (09:29→22:10)
[2017-08-12] MEDS: clonazePAM 0.5 MG TABLET PO SCH ×2 (09:29→22:06)
[2017-08-12] MEDS: PANTOPRAZOLE 40 MG TABLET PO SCH ×2 (09:29→22:06)
[2017-08-12] MEDS: MAGNESIUM OXIDE 400 MG TABLET PO SCH (09:29)
[2017-08-12] MEDS: ASCORBIC ACID 500 MG TABLET PO SCH ×2 (09:29→22:06)
[2017-08-12] MEDS: ACETAMINOPHEN 325 MG TABLET PO PRN (11:25)
[2017-08-12] MEDS ORDERED: DIAZEPAM 5 MG TABLET PO ONE (16:20)
[2017-08-12] MEDS: tiZANidine 4 MG TABLET PO PRN (17:04)
[2017-08-12] MEDS: SERTRALINE 100 MG TABLET PO SCH (22:06)
[2017-08-12] MEDS: PRAMIPEXOLE 0.25 MG TABLET PO SCH (22:06)
[2017-08-13] MEDS: SODIUM CHLORIDE 0.9% 1,000 ML IV SCH ×2 (00:53→07:51)
[2017-08-13] MEDS: ACETAMINOPHEN 325 MG TABLET PO PRN ×2 (00:58→04:42)
[2017-08-13] MEDS: METOPROLOL SUCCINATE XL 25 MG TABLET PO SCH ×2 (08:54→22:57)
[2017-08-13] MEDS: ATORVASTATIN 40 MG TABLET PO SCH (08:54)
[2017-08-13] MEDS: PANTOPRAZOLE 40 MG TABLET PO SCH ×2 (08:54→21:33)
[2017-08-13] MEDS: clonazePAM 0.5 MG TABLET PO SCH ×2 (08:55→21:33)
[2017-08-13] MEDS: ASCORBIC ACID 500 MG TABLET PO SCH ×2 (08:55→21:32)
[2017-08-13] MEDS: LEVOTHYROXINE 112 MCG TABLET PO SCH (08:58)
[2017-08-13] MEDS: DILTIAZEM CD 240 MG CAPSULE PO SCH (09:05)
[2017-08-13] MEDS: MAGNESIUM OXIDE 400 MG TABLET PO SCH (09:05)
[2017-08-13] MEDS ORDERED: tiZANidine 4 MG TABLET PO PRN (09:29)
[2017-08-13] MEDS ORDERED: traMADol 50 MG TABLET PO PRN (09:32)
[2017-08-13] MEDS ORDERED: DIAZEPAM 2 MG TABLET PO PRN (09:37)
[2017-08-13 18:36] LABS: Apearance,Urine CLEAR (Clear); Bilirubin,Urine Negative (Negative); Blood, Urine Negative (Negative); Glucose,Urine (UA) Negative (Negative); Ketones,Urine Negative (Negative); Nitrite,Urine Negative (Negative); Protein,Urine Negative; RBC,Urine 1 /HPF (0-4); Squamous Epithelial Cell,Urine Occasional /HPF (0-10); Urine Color Straw (Yellow); Urine Specific Gravity 1.004 (1.001-1.035); Urine Urobilinogen < 2.0 EU/DL (0.2-1.0); WBC,Urine 2 /HPF (0-6)
[2017-08-13] MEDS: PHENAZOPYRIDINE 95 MG TABLET PO SCH (18:42)
[2017-08-13] MEDS: SERTRALINE 100 MG TABLET PO SCH (21:32)
[2017-08-13] MEDS: PRAMIPEXOLE 0.25 MG TABLET PO SCH (21:33)
[2017-08-14] MEDS: LEVOTHYROXINE 112 MCG TABLET PO SCH (05:55)
[2017-08-14 07:02] LABS: Basophils % 0.3 % (0.0-0.8); Eosinophils # 0.3 10*3/uL (0.0-0.87); Eosinophils % 3.7 % (0.00-10.9); Hematocrit 32.7 VOL% (35.7-47.0); Hemoglobin 10.2 GM/DL (12.0-16.0); Immature Granulocytes % 0.4 %; Immature Granulocytes Absolute 0.03 #; Lymphocytes % 15.5 % (21.3-54.2); Mean Corpuscular HGB Conc 31.2 GM/DL (32-36); Mean Corpuscular Hemoglobin 25 PG (27-34); Mean Corpuscular Volume 81.3 FL (87-102); Mean Platelet Volume 10.2 FL (9.6-12.0); Monocytes # 0.6 10*3/uL (0.11-0.8); Monocytes % 8.5 % (1.7-12.7); Neutrophils # 4.8 10*3/uL (1.4-7.4); Neutrophils % 71.6 % (38.7-73.9); Platelet Count 249 T/CUMM (130-400); Red Blood Count 4.02 MC/CUMM (3.8-5.5); White Blood Count 6.7 T/CUMM (4-12)
[2017-08-14] MEDS: PHENAZOPYRIDINE 95 MG TABLET PO SCH ×3 (09:32→17:27)
[2017-08-14] MEDS: clonazePAM 0.5 MG TABLET PO SCH ×2 (09:32→21:36)
[2017-08-14] MEDS: DILTIAZEM CD 240 MG CAPSULE PO SCH (09:32)
[2017-08-14] MEDS: ATORVASTATIN 40 MG TABLET PO SCH (09:32)
[2017-08-14] MEDS: MAGNESIUM OXIDE 400 MG TABLET PO SCH (09:32)
[2017-08-14] MEDS: METOPROLOL SUCCINATE XL 25 MG TABLET PO SCH ×2 (09:32→21:35)
[2017-08-14] MEDS: ASCORBIC ACID 500 MG TABLET PO SCH ×2 (09:33→21:36)
[2017-08-14] MEDS: PANTOPRAZOLE 40 MG TABLET PO SCH ×2 (09:33→21:36)
[2017-08-14] MEDS: PRAMIPEXOLE 0.25 MG TABLET PO SCH (21:35)
[2017-08-14] MEDS: SERTRALINE 100 MG TABLET PO SCH (21:36)
[2017-08-14] MEDS: tiZANidine 4 MG TABLET PO PRN (21:40)
[2017-08-15] MEDS: LEVOTHYROXINE 112 MCG TABLET PO SCH (05:57)
[2017-08-15] MEDS: ACETAMINOPHEN 325 MG TABLET PO PRN ×2 (05:58→12:12)
[2017-08-15] MEDS: PHENAZOPYRIDINE 95 MG TABLET PO SCH ×2 (09:11→12:11)
[2017-08-15] MEDS: METOPROLOL SUCCINATE XL 25 MG TABLET PO SCH (09:12)
[2017-08-15] MEDS: ASCORBIC ACID 500 MG TABLET PO SCH (09:12)
[2017-08-15] MEDS: DILTIAZEM CD 240 MG CAPSULE PO SCH (09:12)
[2017-08-15] MEDS: PANTOPRAZOLE 40 MG TABLET PO SCH (09:12)
[2017-08-15] MEDS: clonazePAM 0.5 MG TABLET PO SCH (09:12)
[2017-08-15] MEDS: ATORVASTATIN 40 MG TABLET PO SCH (09:12)
[2017-08-15] MEDS: MAGNESIUM OXIDE 400 MG TABLET PO SCH (09:12)
[2017-08-15 13:05] VITALS: BP 149/69
== END 2017-08-15 16:54 | disposition swing bed (61) | DRG 392 ==
LOC: N.ED 09:06 → N.EDINP 13:38 → SUATTDRO 13:38 → N.EDINP 15:29 → N.5E 16:05
PROVIDERS: ADMIT Internal Medicine Geriatric Medicine; ATTEND Internal Medicine

== ENCOUNTER 2017-09-11 11:39 | Inpatient (IN) ==
[2017-09-11] MEDS ORDERED: ASPIRIN 325 MG TABLET PO STA (12:26)
[2017-09-11] MEDS ORDERED: ASPIRIN 325 MG TABLET ONE (12:51)
[2017-09-11 13:16] LABS: Basophils % 0.4 % (0.0-0.8); Eosinophils # 0.4 10*3/uL (0.0-0.87); Eosinophils % 4.4 % (0.00-10.9); Hematocrit 33.4 VOL% (35.7-47.0); Immature Granulocytes % 0.4 %; Immature Granulocytes Absolute 0.04 #; Lymphocytes # 1.5 10*3/uL (1.4-4.0); Lymphocytes % 16.6 % (21.3-54.2); Mean Corpuscular HGB Conc 29.9 GM/DL (32-36); Mean Corpuscular Hemoglobin 25 PG (27-34); Mean Corpuscular Volume 82.5 FL (87-102); Mean Platelet Volume 10.1 FL (9.6-12.0); Monocytes # 0.8 10*3/uL (0.11-0.8); Monocytes % 8.4 % (1.7-12.7); Neutrophils # 6.5 10*3/uL (1.4-7.4); Neutrophils % 69.8 % (38.7-73.9); Platelet Count 296 T/CUMM (130-400); Red Blood Count 4.05 MC/CUMM (3.8-5.5); Red Cell Distribution Width 17.3 % (9.3-17.3); White Blood Count 9.3 T/CUMM (4-12)
[2017-09-11 13:34] LABS: Albumin 3.8 G/DL (3.4-5.0); Bilirubin,Total 0.8 MG/DL (0.2-1.0); Calcium 8.9 MG/DL (8.5-10.1); Osmolality,Calculated 276.7 MOS/KG (273-304); Potassium 4.4 MMOL/L (3.5-5.1); Total Protein 7.3 G/DL (6.4-8.3)
[2017-09-11 13:58] LABS: Apearance,Urine CLEAR (Clear); Bacteria,Urine Occasional /HPF (Few); Bilirubin,Urine Negative (Negative); Blood, Urine Negative (Negative); Glucose,Urine (UA) Negative (Negative); Ketones,Urine Negative (Negative); Nitrite,Urine Negative (Negative); Protein,Urine Negative; RBC,Urine 1 /HPF (0-4); Squamous Epithelial Cell,Urine Occasional /HPF (0-10); Urine Color Yellow (Yellow); Urine Specific Gravity 1.009 (1.001-1.035); Urine Urobilinogen < 2.0 EU/DL (0.2-1.0); WBC,Urine 5 /HPF (0-6)
[2017-09-11] MEDS ORDERED: LEVOFLOXACIN INJ 500 MG in PREMIX 1 EACH IV STA (14:13)
[2017-09-11] MEDS ORDERED: LEVOFLOXACIN INJ 100 ML IV ONE (14:36)
[2017-09-11] MEDS ORDERED: ONDANSETRON 4 MG/2 ML VIAL IV PRN (15:49)
[2017-09-11] MEDS ORDERED: ALBUTEROL/IPRATROPIUM 3 ML NEB RESP TX PRN (15:49)
[2017-09-11] MEDS ORDERED: ALBUTEROL 2.5 MG/3 ML NEB RESP TX PRN (15:49)
[2017-09-11] MEDS ORDERED: MORPHINE 2 MG/1 ML SYRINGE IV PRN (15:49)
[2017-09-11 16:48] LABS: Free T4 (Free Thyroxine) 1.61 NG/DL (0.76-1.46); Thyroid Stimulating Hormone 0.264 uIU/ml (0.358-3.74)
[2017-09-11] MEDS: SODIUM CHLORIDE 0.9% 1,000 ML IV SCH (16:55)
[2017-09-11] MEDS: ALBUTEROL/IPRATROPIUM 3 ML NEB RESP TX SCH (19:49)
[2017-09-11] MEDS: SERTRALINE 100 MG TABLET PO SCH (20:39)
[2017-09-11] MEDS: DOCUSATE SODIUM 100 MG CAPSULE PO SCH (20:39)
[2017-09-11] MEDS: clonazePAM 0.5 MG TABLET PO SCH (20:39)
[2017-09-11] MEDS: APIXABAN 5 MG TABLET PO SCH (20:40)
[2017-09-12] MEDS: ALBUTEROL/IPRATROPIUM 3 ML NEB RESP TX SCH ×4 (01:24→19:00)
[2017-09-12] MEDS: SODIUM CHLORIDE 0.9% 1,000 ML IV SCH ×2 (05:23→18:08)
[2017-09-12] MEDS: LEVOTHYROXINE 112 MCG TABLET PO SCH (06:14)
[2017-09-12] MEDS: APIXABAN 5 MG TABLET PO SCH (08:59)
[2017-09-12] MEDS: clonazePAM 0.5 MG TABLET PO SCH ×2 (08:59→21:21)
[2017-09-12] MEDS: PANTOPRAZOLE 40 MG TABLET PO SCH (08:59)
[2017-09-12] MEDS: PRAMIPEXOLE 0.25 MG TABLET PO SCH (08:59)
[2017-09-12] MEDS: MAGNESIUM OXIDE 400 MG TABLET PO SCH (08:59)
[2017-09-12] MEDS: DOCUSATE SODIUM 100 MG CAPSULE PO SCH ×2 (08:59→21:21)
[2017-09-12] MEDS ORDERED: FUROSEMIDE 20 MG TABLET PO SCH (09:00)
[2017-09-12] MEDS ORDERED: ATORVASTATIN 40 MG TABLET PO SCH (09:00)
[2017-09-12] MEDS: traMADol 50 MG TABLET PO PRN ×2 (09:03→16:24)
[2017-09-12] MEDS: DILTIAZEM 30 MG TABLET PO SCH ×3 (12:30→21:22)
[2017-09-12] MEDS: LEVOFLOXACIN INJ 750 MG in PREMIX 1 EACH IV SCH (14:55)
[2017-09-12] MEDS ORDERED: ENOXAPARIN 80 MG/0.8 ML SYRINGE SUBCUT SCH (21:00)
[2017-09-12] MEDS ORDERED: METOPROLOL TARTRATE 25 MG TABLET PO SCH (21:00)
[2017-09-12] MEDS: SERTRALINE 100 MG TABLET PO SCH (21:21)
[2017-09-12] MEDS: ATORVASTATIN 40 MG TABLET PO SCH (21:21)
[2017-09-12] MEDS: METOPROLOL TARTRATE 25 MG TABLET PO SCH (21:23)
[2017-09-13] MEDS: ALBUTEROL/IPRATROPIUM 3 ML NEB RESP TX SCH ×4 (01:40→19:17)
[2017-09-13] MEDS: traMADol 50 MG TABLET PO PRN ×2 (04:48→11:16)
[2017-09-13] MEDS: LEVOTHYROXINE 112 MCG TABLET PO SCH (06:24)
[2017-09-13 07:51] LABS: Basophils # 0.1 10*3/uL (0.0-0.2); Basophils % 0.5 % (0.0-0.8); Eosinophils # 0.2 10*3/uL (0.0-0.87); Eosinophils % 1.5 % (0.00-10.9); Hematocrit 34.1 VOL% (35.7-47.0); Hemoglobin 10.2 GM/DL (12.0-16.0); Immature Granulocytes % 0.4 %; Immature Granulocytes Absolute 0.04 #; Lymphocytes # 1.5 10*3/uL (1.4-4.0); Lymphocytes % 15.1 % (21.3-54.2); Mean Corpuscular HGB Conc 29.9 GM/DL (32-36); Mean Corpuscular Hemoglobin 24 PG (27-34); Mean Corpuscular Volume 80.2 FL (87-102); Mean Platelet Volume 10.1 FL (9.6-12.0); Monocytes # 0.8 10*3/uL (0.11-0.8); Neutrophils # 7.6 10*3/uL (1.4-7.4); Neutrophils % 74.5 % (38.7-73.9); Platelet Count 312 T/CUMM (130-400); Red Blood Count 4.25 MC/CUMM (3.8-5.5); Red Cell Distribution Width 17.4 % (9.3-17.3); White Blood Count 10.1 T/CUMM (4-12)
[2017-09-13 08:07] LABS: Calcium 9.5 MG/DL (8.5-10.1); Osmolality,Calculated 278.5 MOS/KG (273-304); Potassium 4.8 MMOL/L (3.5-5.1)
[2017-09-13] MEDS: PRAMIPEXOLE 0.25 MG TABLET PO SCH (08:09)
[2017-09-13] MEDS: MAGNESIUM OXIDE 400 MG TABLET PO SCH (08:09)
[2017-09-13] MEDS: DOCUSATE SODIUM 100 MG CAPSULE PO SCH ×2 (08:09→22:19)
[2017-09-13] MEDS: clonazePAM 0.5 MG TABLET PO SCH ×2 (08:09→22:18)
[2017-09-13] MEDS: SODIUM CHLORIDE 0.9% 1,000 ML IV SCH (08:10)
[2017-09-13] MEDS: DILTIAZEM 30 MG TABLET PO SCH ×4 (08:59→22:18)
[2017-09-13] MEDS: PANTOPRAZOLE 40 MG TABLET PO SCH (08:59)
[2017-09-13] MEDS: METOPROLOL TARTRATE 25 MG TABLET PO SCH ×2 (09:00→22:18)
[2017-09-13] MEDS ORDERED: APIXABAN 5 MG TABLET PO ONE (10:51)
[2017-09-13] MEDS ORDERED: ceFAZolin 1,000 MG VIAL IRRIG ONE (14:09)
[2017-09-13] MEDS ORDERED: ceFAZolin 1,000 MG in SYRINGE 1 EACH IV ONE (14:09)
[2017-09-13] MEDS: LEVOFLOXACIN INJ 750 MG in PREMIX 1 EACH IV SCH (14:32)
[2017-09-13] MEDS: SERTRALINE 100 MG TABLET PO SCH (22:18)
[2017-09-13] MEDS: ATORVASTATIN 40 MG TABLET PO SCH (22:19)
[2017-09-14] MEDS: ALBUTEROL/IPRATROPIUM 3 ML NEB RESP TX SCH ×4 (00:23→19:01)
[2017-09-14] MEDS: LEVOTHYROXINE 112 MCG TABLET PO SCH (05:45)
[2017-09-14 06:27] LABS: Basophils % 0.4 % (0.0-0.8); Eosinophils # 0.1 10*3/uL (0.0-0.87); Eosinophils % 1.6 % (0.00-10.9); Hematocrit 34.2 VOL% (35.7-47.0); Hemoglobin 10.7 GM/DL (12.0-16.0); Immature Granulocytes % 0.3 %; Immature Granulocytes Absolute 0.03 #; Lymphocytes # 1.2 10*3/uL (1.4-4.0); Lymphocytes % 13.7 % (21.3-54.2); Mean Corpuscular HGB Conc 31.3 GM/DL (32-36); Mean Corpuscular Hemoglobin 25 PG (27-34); Mean Corpuscular Volume 78.8 FL (87-102); Mean Platelet Volume 11.5 FL (9.6-12.0); Monocytes # 0.7 10*3/uL (0.11-0.8); Monocytes % 7.4 % (1.7-12.7); Neutrophils # 6.9 10*3/uL (1.4-7.4); Neutrophils % 76.6 % (38.7-73.9); Platelet Count 283 T/CUMM (130-400); Red Blood Count 4.34 MC/CUMM (3.8-5.5); Red Cell Distribution Width 17.7 % (9.3-17.3)
[2017-09-14 07:07] LABS: Calcium 9.1 MG/DL (8.5-10.1); Osmolality,Calculated 280.5 MOS/KG (273-304); Potassium 4.6 MMOL/L (3.5-5.1)
[2017-09-14] MEDS ORDERED: HEPARIN/NACL 0.9% 2 UNITS/ML 1,000 ML IV ONE ×2 (07:31→08:01)
[2017-09-14] MEDS ORDERED: LIDOCAINE 1% 20 ML VIAL ONE (07:31)
[2017-09-14] MEDS ORDERED: METOPROLOL SUCCINATE XL 50 MG TABLET PO SCH (09:30)
[2017-09-14] MEDS: DOCUSATE SODIUM 100 MG CAPSULE PO SCH ×2 (09:53→21:35)
[2017-09-14] MEDS: MAGNESIUM OXIDE 400 MG TABLET PO SCH (09:53)
[2017-09-14] MEDS: clonazePAM 0.5 MG TABLET PO SCH ×2 (09:53→21:35)
[2017-09-14] MEDS: PRAMIPEXOLE 0.25 MG TABLET PO SCH (09:54)
[2017-09-14] MEDS ORDERED: PROPOFOL 200 MG/20 ML VIAL IV ONE (10:11)
[2017-09-14] MEDS ORDERED: HEPARIN 10,000 UNIT/10 ML VIAL ONE (10:12)
[2017-09-14] MEDS ORDERED: fentaNYL 100 MCG/2 ML VIAL ONE (10:12)
[2017-09-14] MEDS ORDERED: MIDAZOLAM 2 MG/2 ML VIAL ONE (10:12)
[2017-09-14] MEDS ORDERED: SODIUM CHLORIDE 0.9% 100 ML IV ONE (10:12)
[2017-09-14] MEDS ORDERED: METOPROLOL TARTRATE 5 MG/5 ML VIAL IV ONE (10:12)
[2017-09-14] MEDS: DILTIAZEM CD 240 MG CAPSULE PO SCH (10:20)
[2017-09-14] MEDS: PANTOPRAZOLE 40 MG TABLET PO SCH (10:20)
[2017-09-14] MEDS: DILTIAZEM 30 MG TABLET PO SCH (10:24)
[2017-09-14] MEDS: METOPROLOL TARTRATE 25 MG TABLET PO SCH (10:24)
[2017-09-14] MEDS: traMADol 50 MG TABLET PO PRN (12:40)
[2017-09-14] MEDS: LEVOFLOXACIN INJ 750 MG in PREMIX 1 EACH IV SCH (14:42)
[2017-09-14] MEDS: SERTRALINE 100 MG TABLET PO SCH (21:35)
[2017-09-14] MEDS: ATORVASTATIN 40 MG TABLET PO SCH (21:35)
[2017-09-14] MEDS: APIXABAN 5 MG TABLET PO SCH (21:35)
[2017-09-15] MEDS ORDERED: ZALEPLON 5 MG CAPSULE PO PRN (00:26)
[2017-09-15] MEDS ORDERED: METOPROLOL SUCCINATE XL 50 MG TABLET PO ONE (00:30)
[2017-09-15] MEDS: traMADol 50 MG TABLET PO PRN (01:01)
[2017-09-15] MEDS: ALBUTEROL/IPRATROPIUM 3 ML NEB RESP TX SCH ×4 (01:03→19:04)
[2017-09-15] MEDS ORDERED: clonazePAM 0.5 MG TABLET PO ONE (02:30)
[2017-09-15] MEDS: DILTIAZEM INJ 100 MG in SODIUM CHLORIDE 0.9% 100 ML IV SCH (03:06)
[2017-09-15 04:42] LABS: Basophils % 0.3 % (0.0-0.8); Eosinophils # 0.2 10*3/uL (0.0-0.87); Eosinophils % 1.6 % (0.00-10.9); Hematocrit 32.2 VOL% (35.7-47.0); Hemoglobin 10.3 GM/DL (12.0-16.0); Immature Granulocytes % 0.4 %; Immature Granulocytes Absolute 0.06 #; Lymphocytes # 1.3 10*3/uL (1.4-4.0); Lymphocytes % 9.7 % (21.3-54.2); Mean Corpuscular Hemoglobin 25 PG (27-34); Mean Corpuscular Volume 77.8 FL (87-102); Mean Platelet Volume 10.3 FL (9.6-12.0); Monocytes % 7.1 % (1.7-12.7); Neutrophils # 10.9 10*3/uL (1.4-7.4); Neutrophils % 80.9 % (38.7-73.9); Platelet Count 309 T/CUMM (130-400); Red Blood Count 4.14 MC/CUMM (3.8-5.5); Red Cell Distribution Width 17.6 % (9.3-17.3); White Blood Count 13.5 T/CUMM (4-12)
[2017-09-15 04:57] LABS: Calcium 9.1 MG/DL (8.5-10.1); Osmolality,Calculated 282.5 MOS/KG (273-304); Potassium 4.3 MMOL/L (3.5-5.1)
[2017-09-15] MEDS: LEVOTHYROXINE 112 MCG TABLET PO SCH (05:29)
[2017-09-15] MEDS: clonazePAM 0.5 MG TABLET PO SCH ×2 (08:49→21:30)
[2017-09-15] MEDS: METOPROLOL SUCCINATE XL 50 MG TABLET PO SCH (08:50)
[2017-09-15] MEDS: PANTOPRAZOLE 40 MG TABLET PO SCH (08:50)
[2017-09-15] MEDS: MAGNESIUM OXIDE 400 MG TABLET PO SCH (08:50)
[2017-09-15] MEDS: APIXABAN 5 MG TABLET PO SCH ×2 (08:50→21:31)
[2017-09-15] MEDS: DOCUSATE SODIUM 100 MG CAPSULE PO SCH ×2 (08:50→21:31)
[2017-09-15] MEDS: DILTIAZEM CD 240 MG CAPSULE PO SCH (08:50)
[2017-09-15] MEDS: PRAMIPEXOLE 0.25 MG TABLET PO SCH (08:50)
[2017-09-15] MEDS ORDERED: DIGOXIN 0.5 MG/2 ML AMP IV ONE ×2 (13:43→17:00)
[2017-09-15] MEDS: LEVOFLOXACIN INJ 750 MG in PREMIX 1 EACH IV SCH (15:03)
[2017-09-15] MEDS: diphenhydrAMINE CAP 25 MG CAPSULE PO PRN ×2 (15:53→21:59)
[2017-09-15] MEDS: SERTRALINE 100 MG TABLET PO SCH (21:30)
[2017-09-15] MEDS: ATORVASTATIN 40 MG TABLET PO SCH (21:31)
[2017-09-15] MEDS: ACETAMINOPHEN 325 MG TABLET PO PRN (21:58)
[2017-09-16] MEDS: ALBUTEROL/IPRATROPIUM 3 ML NEB RESP TX SCH ×4 (00:26→21:20)
[2017-09-16] MEDS: DILTIAZEM INJ 100 MG in SODIUM CHLORIDE 0.9% 100 ML IV SCH (04:44)
[2017-09-16] MEDS: clonazePAM 0.5 MG TABLET PO SCH ×2 (08:41→22:11)
[2017-09-16] MEDS: METOPROLOL SUCCINATE XL 50 MG TABLET PO SCH (08:42)
[2017-09-16] MEDS: LEVOTHYROXINE 112 MCG TABLET PO SCH (08:42)
[2017-09-16] MEDS: APIXABAN 5 MG TABLET PO SCH ×2 (08:42→22:11)
[2017-09-16] MEDS: MAGNESIUM OXIDE 400 MG TABLET PO SCH (08:43)
[2017-09-16] MEDS: DOCUSATE SODIUM 100 MG CAPSULE PO SCH ×2 (08:43→22:12)
[2017-09-16] MEDS: DILTIAZEM CD 240 MG CAPSULE PO SCH (08:43)
[2017-09-16] MEDS: PRAMIPEXOLE 0.25 MG TABLET PO SCH (08:43)
[2017-09-16] MEDS: PANTOPRAZOLE 40 MG TABLET PO SCH (08:43)
[2017-09-16] MEDS: DIGOXIN 0.125 MG TABLET PO SCH (08:47)
[2017-09-16] MEDS ORDERED: DILTIAZEM CD 120 MG CAPSULE PO ONE (10:22)
[2017-09-16] MEDS: traMADol 50 MG TABLET PO PRN ×2 (12:06→22:36)
[2017-09-16 13:24] LABS: Basophils % 0.4 % (0.0-0.8); Eosinophils # 0.3 10*3/uL (0.0-0.87); Eosinophils % 2.8 % (0.00-10.9); Hematocrit 33.4 VOL% (35.7-47.0); Hemoglobin 10.7 GM/DL (12.0-16.0); Immature Granulocytes % 0.6 %; Immature Granulocytes Absolute 0.06 #; Lymphocytes # 1.4 10*3/uL (1.4-4.0); Lymphocytes % 13.2 % (21.3-54.2); Mean Corpuscular Hemoglobin 25 PG (27-34); Mean Corpuscular Volume 78.8 FL (87-102); Mean Platelet Volume 10.4 FL (9.6-12.0); Monocytes # 0.7 10*3/uL (0.11-0.8); Monocytes % 7.1 % (1.7-12.7); Neutrophils # 7.9 10*3/uL (1.4-7.4); Neutrophils % 75.9 % (38.7-73.9); Platelet Count 301 T/CUMM (130-400); Red Blood Count 4.24 MC/CUMM (3.8-5.5); Red Cell Distribution Width 17.5 % (9.3-17.3); White Blood Count 10.3 T/CUMM (4-12)
[2017-09-16 14:02] LABS: Calcium 9.2 MG/DL (8.5-10.1); Osmolality,Calculated 280.4 MOS/KG (273-304); Potassium 4.2 MMOL/L (3.5-5.1)
[2017-09-16] MEDS: LEVOFLOXACIN INJ 750 MG in PREMIX 1 EACH IV SCH (15:13)
[2017-09-16] MEDS: ACETAMINOPHEN 325 MG TABLET PO PRN (15:21)
[2017-09-16] MEDS: ATORVASTATIN 40 MG TABLET PO SCH (22:11)
[2017-09-16] MEDS: SERTRALINE 100 MG TABLET PO SCH (22:11)
[2017-09-17] MEDS: ACETAMINOPHEN 325 MG TABLET PO PRN ×2 (01:39→18:15)
[2017-09-17] MEDS: ALBUTEROL/IPRATROPIUM 3 ML NEB RESP TX SCH ×4 (01:46→21:16)
[2017-09-17] MEDS: diphenhydrAMINE CAP 25 MG CAPSULE PO PRN (03:40)
[2017-09-17] MEDS: DILTIAZEM INJ 100 MG in SODIUM CHLORIDE 0.9% 100 ML IV SCH (04:06)
[2017-09-17] MEDS: LEVOTHYROXINE 112 MCG TABLET PO SCH (06:44)
[2017-09-17] MEDS: DOCUSATE SODIUM 100 MG CAPSULE PO SCH ×2 (08:34→21:25)
[2017-09-17] MEDS: MAGNESIUM OXIDE 400 MG TABLET PO SCH (08:34)
[2017-09-17] MEDS: PRAMIPEXOLE 0.25 MG TABLET PO SCH (08:34)
[2017-09-17] MEDS: DIGOXIN 0.125 MG TABLET PO SCH (08:34)
[2017-09-17] MEDS: APIXABAN 5 MG TABLET PO SCH ×2 (08:35→21:13)
[2017-09-17] MEDS: DILTIAZEM CD 180 MG CAPSULE PO SCH ×2 (08:35→11:13)
[2017-09-17] MEDS: clonazePAM 0.5 MG TABLET PO SCH ×2 (08:35→21:12)
[2017-09-17] MEDS: PANTOPRAZOLE 40 MG TABLET PO SCH (08:35)
[2017-09-17] MEDS: METOPROLOL SUCCINATE XL 50 MG TABLET PO SCH ×2 (08:36→11:14)
[2017-09-17] MEDS: traMADol 50 MG TABLET PO PRN ×2 (11:28→21:13)
[2017-09-17] MEDS: LEVOFLOXACIN INJ 750 MG in PREMIX 1 EACH IV SCH (15:53)
[2017-09-17] MEDS: SERTRALINE 100 MG TABLET PO SCH (21:12)
[2017-09-17] MEDS: ATORVASTATIN 40 MG TABLET PO SCH (21:13)
[2017-09-18] MEDS: ALBUTEROL/IPRATROPIUM 3 ML NEB RESP TX SCH ×2 (01:39→07:16)
[2017-09-18] MEDS: DILTIAZEM INJ 100 MG in SODIUM CHLORIDE 0.9% 100 ML IV SCH (05:56)
[2017-09-18] MEDS: LEVOTHYROXINE 112 MCG TABLET PO SCH (06:12)
[2017-09-18] MEDS: ACETAMINOPHEN 325 MG TABLET PO PRN (06:12)
[2017-09-18] MEDS: METOPROLOL SUCCINATE XL 50 MG TABLET PO SCH (09:19)
[2017-09-18] MEDS: PANTOPRAZOLE 40 MG TABLET PO SCH (09:19)
[2017-09-18] MEDS: DILTIAZEM CD 180 MG CAPSULE PO SCH (09:19)
[2017-09-18] MEDS: DIGOXIN 0.125 MG TABLET PO SCH (09:19)
[2017-09-18] MEDS: clonazePAM 0.5 MG TABLET PO SCH (09:20)
[2017-09-18] MEDS: DOCUSATE SODIUM 100 MG CAPSULE PO SCH (09:20)
[2017-09-18] MEDS: MAGNESIUM OXIDE 400 MG TABLET PO SCH (09:20)
[2017-09-18] MEDS: PRAMIPEXOLE 0.25 MG TABLET PO SCH (09:20)
[2017-09-18] MEDS: APIXABAN 5 MG TABLET PO SCH (09:20)
[2017-09-18 11:57] VITALS: BP 104/81
[2017-09-18] MEDS: LEVOFLOXACIN INJ 750 MG in PREMIX 1 EACH IV SCH (15:03)
== END 2017-09-18 15:07 | disposition home or self-care (01) | DRG 228 ==
LOC: N.ED 11:39 → N.EDINP 14:12 → SUATTDRO 14:12 → N.EDINP 15:27 → N.TELES 15:46
PROVIDERS: ADMIT Internal Medicine; ATTEND Internal Medicine Infectious Disease
PROC: CLMICRA (2017-09-14 08:45)

== ENCOUNTER 2017-10-02 12:45 | Inpatient (IN) ==
[2017-10-02] MEDS ORDERED: SODIUM CHLORIDE 0.9% 1,000 ML IV STA (15:37)
[2017-10-02 16:11] LABS: Basophils % 0.2 % (0.0-0.8); Eosinophils # 0.2 10*3/uL (0.0-0.87); Eosinophils % 0.9 % (0.00-10.9); Hematocrit 37.3 VOL% (35.7-47.0); Hemoglobin 11.5 GM/DL (12.0-16.0); Immature Granulocytes % 0.4 %; Immature Granulocytes Absolute 0.07 #; Lymphocytes # 1.8 10*3/uL (1.4-4.0); Lymphocytes % 11.1 % (21.3-54.2); Mean Corpuscular HGB Conc 30.8 GM/DL (32-36); Mean Corpuscular Hemoglobin 24 PG (27-34); Mean Platelet Volume 10.1 FL (9.6-12.0); Monocytes % 6.1 % (1.7-12.7); Neutrophils # 13.5 10*3/uL (1.4-7.4); Neutrophils % 81.3 % (38.7-73.9); Platelet Count 425 T/CUMM (130-400); Red Blood Count 4.78 MC/CUMM (3.8-5.5); Red Cell Distribution Width 17.6 % (9.3-17.3); White Blood Count 16.6 T/CUMM (4-12)
[2017-10-02 16:18] LABS: Apearance,Urine CLEAR (Clear); Bilirubin,Urine Negative (Negative); Blood, Urine Negative (Negative); Glucose,Urine (UA) Negative (Negative); Hyaline Casts,Urine 4 /LPF (0-3); Ketones,Urine Negative (Negative); Mucus,Urine Occasional /LPF (Occasional); Nitrite,Urine Negative (Negative); Protein,Urine Negative; RBC,Urine <1 /HPF (0-4); Squamous Epithelial Cell,Urine Occasional /HPF (0-10); Urine Color Yellow (Yellow); Urine Specific Gravity 1.008 (1.001-1.035); Urine Urobilinogen < 2.0 EU/DL (0.2-1.0); WBC,Urine <1 /HPF (0-6)
[2017-10-02 16:24] LABS: PT Patient Result 10.8 SECS
[2017-10-02 16:35] LABS: Alanine Aminotransferase 27 U/L (13-56); Albumin 4.1 G/DL (3.4-5.0); Alkaline Phosphatase 152 U/L (45-117); Aspartate Amino Transferase 19 U/L (0-37); Blood Urea Nitrogen 32 MG/DL (7-18); Calcium 9.1 MG/DL (8.5-10.1); Glucose 127 MG/DL (74-106); Osmolality,Calculated 281.8 MOS/KG (273-304); Potassium 4.3 MMOL/L (3.5-5.1); Sodium 137 MMOL/L (136-145); Total Protein 7.7 G/DL (6.4-8.3); Troponin I Only < 0.015 NG/ML (0.00-0.045)
[2017-10-02] MEDS ORDERED: GLUCAGON 1 MG VIAL IM PRN (17:12)
[2017-10-02] MEDS ORDERED: DEXTROSE 50% 25 GM/50 ML VIAL IV PRN (17:12)
[2017-10-02] MEDS ORDERED: ALBUTEROL 2.5 MG/3 ML NEB RESP TX PRN (17:14)
[2017-10-02] MEDS ORDERED: traMADol 50 MG TABLET PO PRN (17:14)
[2017-10-02] MEDS: SODIUM CHLORIDE 0.9% 1,000 ML IV SCH ×5 (20:20→22:32)
[2017-10-02] MEDS: INSULIN REGULAR 100 UNIT/ML SUBCUT SCH (21:56)
[2017-10-02] MEDS: SERTRALINE 100 MG TABLET PO SCH (21:57)
[2017-10-02] MEDS: PANTOPRAZOLE 40 MG TABLET PO SCH (21:58)
[2017-10-02] MEDS: clonazePAM 0.5 MG TABLET PO SCH (21:58)
[2017-10-02] MEDS: APIXABAN 5 MG TABLET PO SCH (21:58)
[2017-10-03] MEDS: SODIUM CHLORIDE 0.9% 1,000 ML IV SCH ×9 (01:57→15:18)
[2017-10-03] MEDS: ONDANSETRON 4 MG/2 ML VIAL IV PRN ×3 (04:34→22:00)
[2017-10-03] MEDS ORDERED: AMIODARONE INJ 150 MG in DEXTROSE 5% 100 ML IV ONE (05:37)
[2017-10-03 06:04] LABS: Basophils % 0.2 % (0.0-0.8); Eosinophils # 0.1 10*3/uL (0.0-0.87); Hematocrit 30.7 VOL% (35.7-47.0); Immature Granulocytes % 0.6 %; Immature Granulocytes Absolute 0.08 #; Lymphocytes # 1.6 10*3/uL (1.4-4.0); Lymphocytes % 11.9 % (21.3-54.2); Mean Corpuscular HGB Conc 30.9 GM/DL (32-36); Mean Corpuscular Hemoglobin 24 PG (27-34); Mean Corpuscular Volume 78.3 FL (87-102); Mean Platelet Volume 10.3 FL (9.6-12.0); Monocytes # 0.9 10*3/uL (0.11-0.8); Monocytes % 6.8 % (1.7-12.7); Neutrophils # 10.6 10*3/uL (1.4-7.4); Neutrophils % 79.5 % (38.7-73.9); Red Blood Count 3.92 MC/CUMM (3.8-5.5); Red Cell Distribution Width 17.7 % (9.3-17.3); White Blood Count 13.3 T/CUMM (4-12)
[2017-10-03 06:19] LABS: Hemoglobin 9.5 GM/DL (12.0-16.0); Platelet Count 310 T/CUMM (130-400)
[2017-10-03] MEDS ORDERED: LEVOTHYROXINE 112 MCG TABLET PO SCH ×2 (06:30→08:47)
[2017-10-03 06:32] LABS: Calcium 8.3 MG/DL (8.5-10.1); Osmolality,Calculated 286.4 MOS/KG (273-304); Potassium 4.2 MMOL/L (3.5-5.1); Thyroid Stimulating Hormone 0.287 uIU/ml (0.358-3.74)
[2017-10-03] MEDS ORDERED: DIGOXIN 0.5 MG/2 ML AMP IV ONE (08:00)
[2017-10-03] MEDS ORDERED: AMIODARONE INJ 450 MG in DEXTROSE 5% 241 ML IV SCH (09:00)
[2017-10-03] MEDS: PRAMIPEXOLE 0.25 MG TABLET PO SCH (09:18)
[2017-10-03] MEDS: ATORVASTATIN 40 MG TABLET PO SCH (09:18)
[2017-10-03] MEDS: MAGNESIUM OXIDE 400 MG TABLET PO SCH (09:18)
[2017-10-03] MEDS: ACETAMINOPHEN 325 MG TABLET PO PRN ×2 (09:18→18:47)
[2017-10-03] MEDS: LEVOTHYROXINE 88 MCG TABLET PO SCH (09:18)
[2017-10-03] MEDS: PANTOPRAZOLE 40 MG TABLET PO SCH ×2 (09:19→21:54)
[2017-10-03] MEDS: INSULIN REGULAR 100 UNIT/ML SUBCUT SCH ×4 (09:19→20:17)
[2017-10-03] MEDS: APIXABAN 5 MG TABLET PO SCH (09:19)
[2017-10-03] MEDS: SODIUM CHLORIDE 0.45% 1,000 ML IV SCH ×2 (09:20→15:18)
[2017-10-03] MEDS: clonazePAM 0.5 MG TABLET PO SCH ×2 (09:21→21:53)
[2017-10-03] MEDS: METOPROLOL SUCCINATE XL 100 MG TABLET PO SCH (09:21)
[2017-10-03] MEDS ORDERED: MORPHINE 2 MG/1 ML SYRINGE IV PRN (10:37)
[2017-10-03] MEDS: AMIODARONE INJ 450 MG in DEXTROSE 5% 241 ML IV SCH (17:50)
[2017-10-03] MEDS: SERTRALINE 100 MG TABLET PO SCH (21:54)
[2017-10-04] MEDS: LORazepam 2 MG/1 ML VIAL IV PRN (00:36)
[2017-10-04] MEDS ORDERED: fentaNYL 100 MCG/2 ML VIAL IV PRN (03:00)
[2017-10-04] MEDS ORDERED: diphenhydrAMINE 50 MG/1 ML VIAL IV PRN (03:00)
[2017-10-04 05:07] LABS: Basophils % 0.4 % (0.0-0.8); Eosinophils # 0.2 10*3/uL (0.0-0.87); Hematocrit 25.2 VOL% (35.7-47.0); Hemoglobin 7.7 GM/DL (12.0-16.0); Immature Granulocytes % 0.4 %; Immature Granulocytes Absolute 0.04 #; Lymphocytes # 1.6 10*3/uL (1.4-4.0); Lymphocytes % 15.7 % (21.3-54.2); Mean Corpuscular HGB Conc 30.6 GM/DL (32-36); Mean Corpuscular Hemoglobin 24 PG (27-34); Mean Corpuscular Volume 79.5 FL (87-102); Mean Platelet Volume 10.3 FL (9.6-12.0); Monocytes # 0.9 10*3/uL (0.11-0.8); Monocytes % 9.2 % (1.7-12.7); Neutrophils # 7.2 10*3/uL (1.4-7.4); Neutrophils % 72.3 % (38.7-73.9); Platelet Count 225 T/CUMM (130-400); Red Blood Count 3.17 MC/CUMM (3.8-5.5); Red Cell Distribution Width 17.5 % (9.3-17.3); White Blood Count 9.9 T/CUMM (4-12)
[2017-10-04 05:23] LABS: Calcium 8.2 MG/DL (8.5-10.1); Osmolality,Calculated 280.5 MOS/KG (273-304); Potassium 4.4 MMOL/L (3.5-5.1)
[2017-10-04] MEDS: INSULIN REGULAR 100 UNIT/ML SUBCUT SCH ×4 (09:33→20:53)
[2017-10-04] MEDS: METOPROLOL SUCCINATE XL 100 MG TABLET PO SCH (09:33)
[2017-10-04] MEDS: ASPIRIN EC 81 MG TABLET PO SCH (09:33)
[2017-10-04] MEDS: LEVOTHYROXINE 88 MCG TABLET PO SCH (09:33)
[2017-10-04] MEDS: PRAMIPEXOLE 0.25 MG TABLET PO SCH (09:34)
[2017-10-04] MEDS: PANTOPRAZOLE 40 MG TABLET PO SCH ×2 (09:34→20:45)
[2017-10-04] MEDS: MAGNESIUM OXIDE 400 MG TABLET PO SCH (09:34)
[2017-10-04] MEDS: ATORVASTATIN 40 MG TABLET PO SCH (09:34)
[2017-10-04] MEDS: AMIODARONE INJ 450 MG in DEXTROSE 5% 241 ML IV SCH (10:49)
[2017-10-04] MEDS ORDERED: SODIUM CHLORIDE 0.9% 1,000 ML IV PRN (11:38)
[2017-10-04] MEDS: clonazePAM 0.5 MG TABLET PO SCH ×2 (14:58→20:45)
[2017-10-04] MEDS: SERTRALINE 100 MG TABLET PO SCH (20:45)
[2017-10-04 21:21] LABS: Basophils % 0.3 % (0.0-0.8); Eosinophils # 0.3 10*3/uL (0.0-0.87); Eosinophils % 2.4 % (0.00-10.9); Hemoglobin 9.9 GM/DL (12.0-16.0); Immature Granulocytes % 0.6 %; Immature Granulocytes Absolute 0.07 #; Lymphocytes # 1.6 10*3/uL (1.4-4.0); Lymphocytes % 12.9 % (21.3-54.2); Mean Corpuscular HGB Conc 30.9 GM/DL (32-36); Mean Corpuscular Hemoglobin 25 PG (27-34); Mean Corpuscular Volume 80.6 FL (87-102); Mean Platelet Volume 10.2 FL (9.6-12.0); Monocytes % 8.6 % (1.7-12.7); Neutrophils # 9.1 10*3/uL (1.4-7.4); Neutrophils % 75.2 % (38.7-73.9); Platelet Count 249 T/CUMM (130-400); Red Blood Count 3.97 MC/CUMM (3.8-5.5); Red Cell Distribution Width 17.5 % (9.3-17.3); White Blood Count 12.1 T/CUMM (4-12)
[2017-10-05] MEDS: AMIODARONE INJ 450 MG in DEXTROSE 5% 241 ML IV SCH (01:51)
[2017-10-05 05:42] LABS: Basophils % 0.4 % (0.0-0.8); Eosinophils # 0.3 10*3/uL (0.0-0.87); Eosinophils % 3.1 % (0.00-10.9); Hematocrit 31.4 VOL% (35.7-47.0); Hemoglobin 9.8 GM/DL (12.0-16.0); Immature Granulocytes % 0.4 %; Immature Granulocytes Absolute 0.04 #; Lymphocytes # 1.6 10*3/uL (1.4-4.0); Lymphocytes % 15.8 % (21.3-54.2); Mean Corpuscular HGB Conc 31.2 GM/DL (32-36); Mean Corpuscular Hemoglobin 25 PG (27-34); Mean Corpuscular Volume 79.5 FL (87-102); Mean Platelet Volume 10.1 FL (9.6-12.0); Monocytes # 0.9 10*3/uL (0.11-0.8); Neutrophils % 71.3 % (38.7-73.9); Platelet Count 244 T/CUMM (130-400); Red Blood Count 3.95 MC/CUMM (3.8-5.5); Red Cell Distribution Width 17.4 % (9.3-17.3); White Blood Count 9.8 T/CUMM (4-12)
[2017-10-05 05:47] LABS: Basophils % 0.4 % (0.0-0.8); Eosinophils # 0.3 10*3/uL (0.0-0.87); Hematocrit 31.4 VOL% (35.7-47.0); Immature Granulocytes % 0.4 %; Immature Granulocytes Absolute 0.04 #; Lymphocytes # 1.5 10*3/uL (1.4-4.0); Lymphocytes % 15.1 % (21.3-54.2); Mean Corpuscular HGB Conc 31.8 GM/DL (32-36); Mean Corpuscular Hemoglobin 25 PG (27-34); Mean Corpuscular Volume 79.7 FL (87-102); Mean Platelet Volume 10.5 FL (9.6-12.0); Monocytes # 0.9 10*3/uL (0.11-0.8); Neutrophils # 7.2 10*3/uL (1.4-7.4); Neutrophils % 72.1 % (38.7-73.9); Platelet Count 246 T/CUMM (130-400); Red Blood Count 3.94 MC/CUMM (3.8-5.5); Red Cell Distribution Width 17.4 % (9.3-17.3)
[2017-10-05 06:20] LABS: % Iron Saturation 7.5 % (18-50); Ferritin 47.5 ng/ml (8-252)
[2017-10-05 06:22] LABS: Calcium 8.4 MG/DL (8.5-10.1); Osmolality,Calculated 277.7 MOS/KG (273-304); Potassium 4.5 MMOL/L (3.5-5.1)
[2017-10-05 06:27] LABS: Calcium 8.3 MG/DL (8.5-10.1); Folate 9.4 NG/ML (5.4-24.0); Osmolality,Calculated 281.4 MOS/KG (273-304); Potassium 4.6 MMOL/L (3.5-5.1); Vitamin B12 370 PG/ML (211-911)
[2017-10-05] MEDS: LEVOTHYROXINE 88 MCG TABLET PO SCH ×2 (06:53→11:35)
[2017-10-05] MEDS ORDERED: LIDOCAINE 1% 20 ML VIAL ONE (08:00)
[2017-10-05] MEDS ORDERED: HEPARIN/NACL 0.9% 2 UNITS/ML 1,000 ML IV ONE ×2 (08:00→08:12)
[2017-10-05] MEDS ORDERED: fentaNYL 100 MCG/2 ML VIAL ONE (08:08)
[2017-10-05] MEDS ORDERED: MIDAZOLAM 2 MG/2 ML VIAL ONE (08:08)
[2017-10-05] MEDS ORDERED: HEPARIN 5,000 UNIT/1 ML VIAL ONE (08:20)
[2017-10-05 08:53] LABS: Sedimentation Rate-Westergren 45 MM/HR (0-30)
[2017-10-05] MEDS ORDERED: METOPROLOL SUCCINATE XL 50 MG TABLET PO SCH (09:20)
[2017-10-05 09:40] LABS: Hemoglobin A1 (Alkaline) 97.1 % (96.5-98.5); Hemoglobin A2 (Alkaline) 2.9 % (1.5-3.5)
[2017-10-05] MEDS: MAGNESIUM OXIDE 400 MG TABLET PO SCH (11:33)
[2017-10-05] MEDS: ASPIRIN EC 81 MG TABLET PO SCH (11:33)
[2017-10-05] MEDS: clonazePAM 0.5 MG TABLET PO SCH ×2 (11:33→21:15)
[2017-10-05] MEDS: PRAMIPEXOLE 0.25 MG TABLET PO SCH (11:33)
[2017-10-05] MEDS: METOPROLOL SUCCINATE XL 100 MG TABLET PO SCH (11:35)
[2017-10-05] MEDS: PANTOPRAZOLE 40 MG TABLET PO SCH ×2 (11:35→21:16)
[2017-10-05] MEDS: INSULIN REGULAR 100 UNIT/ML SUBCUT SCH ×3 (13:43→21:20)
[2017-10-05] MEDS: ATORVASTATIN 40 MG TABLET PO SCH (13:44)
[2017-10-05] MEDS ORDERED: ATORVASTATIN 40 MG TABLET PO SCH (21:00)
[2017-10-05] MEDS: SERTRALINE 100 MG TABLET PO SCH (21:16)
[2017-10-05] MEDS: LORazepam 2 MG/1 ML VIAL IV PRN (22:39)
[2017-10-06 06:00] LABS: Basophils % 0.2 % (0.0-0.8); Eosinophils # 0.2 10*3/uL (0.0-0.87); Eosinophils % 2.2 % (0.00-10.9); Hematocrit 32.7 VOL% (35.7-47.0); Immature Granulocytes % 0.4 %; Immature Granulocytes Absolute 0.04 #; Lymphocytes # 1.3 10*3/uL (1.4-4.0); Lymphocytes % 11.6 % (21.3-54.2); Mean Corpuscular HGB Conc 30.6 GM/DL (32-36); Mean Corpuscular Hemoglobin 25 PG (27-34); Mean Corpuscular Volume 80.3 FL (87-102); Mean Platelet Volume 10.4 FL (9.6-12.0); Neutrophils # 8.5 10*3/uL (1.4-7.4); Neutrophils % 76.6 % (38.7-73.9); Platelet Count 288 T/CUMM (130-400); Red Blood Count 4.07 MC/CUMM (3.8-5.5); Red Cell Distribution Width 17.8 % (9.3-17.3); White Blood Count 11.1 T/CUMM (4-12)
[2017-10-06 06:41] LABS: Calcium 8.6 MG/DL (8.5-10.1); Osmolality,Calculated 282.4 MOS/KG (273-304); Potassium 4.7 MMOL/L (3.5-5.1)
[2017-10-06] MEDS: LEVOTHYROXINE 88 MCG TABLET PO SCH (06:56)
[2017-10-06] MEDS: INSULIN REGULAR 100 UNIT/ML SUBCUT SCH ×2 (08:18→12:04)
[2017-10-06] MEDS: PRAMIPEXOLE 0.25 MG TABLET PO SCH (09:50)
[2017-10-06] MEDS: ASPIRIN EC 81 MG TABLET PO SCH (09:50)
[2017-10-06] MEDS: PANTOPRAZOLE 40 MG TABLET PO SCH (09:50)
[2017-10-06] MEDS: MAGNESIUM OXIDE 400 MG TABLET PO SCH (09:50)
[2017-10-06] MEDS: clonazePAM 0.5 MG TABLET PO SCH (09:50)
[2017-10-06 12:01] VITALS: BP 122/64
== END 2017-10-06 14:08 | disposition home health service (06) | DRG 274 ==
LOC: N.ED 12:45 → N.EDINP 12:45 → N.5E 18:50 → N.TELES 10-03 05:53
PROVIDERS: ADMIT Hospitalist; ATTEND Hospitalist

== ENCOUNTER 2017-10-09 22:30 | Observation (INO) ==
[2017-10-09] MEDS ORDERED: SODIUM CHLORIDE 0.9% 500 ML IV STA (23:09)
[2017-10-09] MEDS ORDERED: ONDANSETRON 4 MG/2 ML VIAL IV STA (23:09)
[2017-10-09] MEDS ORDERED: MECLIZINE 25 MG TABLET PO STA (23:09)
[2017-10-09 23:57] LABS: Basophils % 0.1 % (0.0-0.8); Eosinophils # 0.3 10*3/uL (0.0-0.87); Eosinophils % 3.4 % (0.00-10.9); Hematocrit 32.4 VOL% (35.7-47.0); Hemoglobin 10.2 GM/DL (12.0-16.0); Immature Granulocytes % 0.3 %; Immature Granulocytes Absolute 0.03 #; Lymphocytes # 0.8 10*3/uL (1.4-4.0); Mean Corpuscular HGB Conc 31.5 GM/DL (32-36); Mean Corpuscular Hemoglobin 25 PG (27-34); Mean Corpuscular Volume 78.3 FL (87-102); Mean Platelet Volume 10.5 FL (9.6-12.0); Monocytes # 0.6 10*3/uL (0.11-0.8); Monocytes % 6.5 % (1.7-12.7); Neutrophils # 6.9 10*3/uL (1.4-7.4); Neutrophils % 80.7 % (38.7-73.9); Platelet Count 330 T/CUMM (130-400); Red Blood Count 4.14 MC/CUMM (3.8-5.5); Red Cell Distribution Width 17.8 % (9.3-17.3); White Blood Count 8.6 T/CUMM (4-12)
[2017-10-10] MEDS ORDERED: ONDANSETRON 4 MG/2 ML VIAL ONE (00:02)
[2017-10-10] MEDS ORDERED: MECLIZINE 25 MG TABLET ONE (00:02)
[2017-10-10 00:04] LABS: INR 0.9
[2017-10-10 00:22] LABS: Albumin 3.4 G/DL (3.4-5.0); Bilirubin,Total 1.1 MG/DL (0.2-1.0); Calcium 8.6 MG/DL (8.5-10.1); Osmolality,Calculated 274.2 MOS/KG (273-304); Potassium 4.8 MMOL/L (3.5-5.1); Total Protein 6.2 G/DL (6.4-8.3)
[2017-10-10 00:24] LABS: Troponin I Only 0.081 NG/ML (0.00-0.045)
[2017-10-10] MEDS ORDERED: SERTRALINE 50 MG TABLET PO STA (00:38)
[2017-10-10] MEDS ORDERED: LORazepam 2 MG/1 ML VIAL IV STA (00:39)
[2017-10-10 01:00] LABS: Apearance,Urine CLEAR (Clear); Bacteria,Urine Occasional /HPF (Few); Bilirubin,Urine Negative (Negative); Blood, Urine Negative (Negative); Glucose,Urine (UA) Negative (Negative); Ketones,Urine Negative (Negative); Mucus,Urine Occasional /LPF (Occasional); Nitrite,Urine Negative (Negative); Protein,Urine Negative; Squamous Epithelial Cell,Urine Occasional /HPF (0-10); Urine Color Yellow (Yellow); Urine Specific Gravity 1.011 (1.001-1.035); Urine Urobilinogen < 2.0 EU/DL (0.2-1.0); WBC,Urine 1 /HPF (0-6)
[2017-10-10] MEDS ORDERED: LORazepam 2 MG/1 ML VIAL ONE (01:45)
[2017-10-10] MEDS ORDERED: ACETAMINOPHEN 325 MG TABLET PO PRN (02:01)
[2017-10-10] MEDS ORDERED: GLUCAGON 1 MG VIAL IM PRN (02:01)
[2017-10-10] MEDS ORDERED: DEXTROSE 50% 25 GM/50 ML VIAL IV PRN (02:01)
[2017-10-10] MEDS ORDERED: ONDANSETRON 4 MG/2 ML VIAL IV PRN (02:01)
[2017-10-10 05:46] LABS: Calcium 8.7 MG/DL (8.5-10.1); Osmolality,Calculated 276.8 MOS/KG (273-304); Potassium 4.9 MMOL/L (3.5-5.1); Thyroid Stimulating Hormone 3.75 uIU/ml (0.358-3.74)
[2017-10-10 06:20] LABS: Basophils % 0.3 % (0.0-0.8); Eosinophils # 0.3 10*3/uL (0.0-0.87); Eosinophils % 3.6 % (0.00-10.9); Hematocrit 35.2 VOL% (35.7-47.0); Hemoglobin 10.7 GM/DL (12.0-16.0); Immature Granulocytes % 0.4 %; Immature Granulocytes Absolute 0.03 #; Lymphocytes % 14.1 % (21.3-54.2); Mean Corpuscular HGB Conc 30.4 GM/DL (32-36); Mean Corpuscular Hemoglobin 25 PG (27-34); Mean Corpuscular Volume 80.5 FL (87-102); Mean Platelet Volume 9.7 FL (9.6-12.0); Monocytes # 0.5 10*3/uL (0.11-0.8); Monocytes % 7.9 % (1.7-12.7); Neutrophils # 5.1 10*3/uL (1.4-7.4); Neutrophils % 73.7 % (38.7-73.9); Platelet Count 330 T/CUMM (130-400); Red Blood Count 4.37 MC/CUMM (3.8-5.5); Red Cell Distribution Width 17.7 % (9.3-17.3); White Blood Count 6.9 T/CUMM (4-12)
[2017-10-10] MEDS ORDERED: ENOXAPARIN 40 MG/0.4 ML SYRINGE ONE (08:25)
[2017-10-10] MEDS ORDERED: MAGNESIUM OXIDE 400 MG TABLET ONE (08:25)
[2017-10-10] MEDS ORDERED: PANTOPRAZOLE 40 MG TABLET PO ONE (08:25)
[2017-10-10] MEDS ORDERED: FUROSEMIDE 20 MG TABLET ONE (08:25)
[2017-10-10] MEDS: LEVOTHYROXINE 88 MCG TABLET PO SCH (08:39)
[2017-10-10] MEDS: ENOXAPARIN 40 MG/0.4 ML SYRINGE SUBCUT SCH (08:54)
[2017-10-10] MEDS: ASPIRIN EC 81 MG TABLET PO SCH (08:55)
[2017-10-10] MEDS: METOPROLOL SUCCINATE XL 50 MG TABLET PO SCH (08:55)
[2017-10-10] MEDS: FUROSEMIDE 20 MG TABLET PO SCH (08:55)
[2017-10-10] MEDS: MAGNESIUM OXIDE 400 MG TABLET PO SCH (08:55)
[2017-10-10] MEDS: PANTOPRAZOLE 40 MG TABLET PO SCH ×2 (08:55→20:24)
[2017-10-10] MEDS: INSULIN LISPRO 100 UNIT/ML SUBCUT SCH ×3 (12:53→20:16)
[2017-10-10] MEDS: clonazePAM 0.5 MG TABLET PO SCH ×2 (13:06→20:24)
[2017-10-10] MEDS: busPIRone 5 MG TABLET PO SCH (20:23)
[2017-10-10] MEDS ORDERED: ATORVASTATIN 40 MG TABLET PO SCH (21:00)
[2017-10-10] MEDS ORDERED: SERTRALINE 50 MG TABLET PO SCH (21:00)
[2017-10-10] MEDS ORDERED: PRAMIPEXOLE 0.25 MG TABLET PO SCH (21:00)
[2017-10-11] MEDS: LEVOTHYROXINE 88 MCG TABLET PO SCH (06:37)
[2017-10-11] MEDS: MAGNESIUM OXIDE 400 MG TABLET PO SCH (08:55)
[2017-10-11] MEDS: clonazePAM 0.5 MG TABLET PO SCH (08:55)
[2017-10-11] MEDS: ASPIRIN EC 81 MG TABLET PO SCH (08:55)
[2017-10-11] MEDS: PANTOPRAZOLE 40 MG TABLET PO SCH (08:55)
[2017-10-11] MEDS: FUROSEMIDE 20 MG TABLET PO SCH ×2 (08:55→08:58)
[2017-10-11] MEDS: METOPROLOL SUCCINATE XL 50 MG TABLET PO SCH (08:55)
[2017-10-11] MEDS: INSULIN LISPRO 100 UNIT/ML SUBCUT SCH ×2 (08:56→12:04)
[2017-10-11] MEDS: ENOXAPARIN 40 MG/0.4 ML SYRINGE SUBCUT SCH (10:08)
[2017-10-11] MEDS: busPIRone 5 MG TABLET PO SCH (11:55)
[2017-10-11 12:12] VITALS: BP 122/59
== END 2017-10-11 15:21 | disposition home or self-care (01) ==
LOC: EDUNIT# → EDBD → N.ED 22:30 → N.EDINP 22:30 → N.TELEN 10-10 11:30
PROVIDERS: ADMIT Hospitalist; ATTEND Hospitalist

== ENCOUNTER 2018-01-20 13:30 | Inpatient (IN) ==
[2018-01-24 14:23] VITALS: BP 125/85
== END 2018-01-24 15:13 | disposition home or self-care (01) | DRG 682 ==
LOC: N.EDINP 13:30 → N.ED 13:30 → N.EDINP 18:26 → N.4E 18:47
PROVIDERS: ADMIT Internal Medicine; ATTEND Internal Medicine

== ENCOUNTER 2018-03-20 09:50 | Inpatient (IN) ==
[2018-03-20 13:51] LABS: Basophils % 0.6 % (0.0-0.8); Eosinophils # 0.1 10*3/uL (0.0-0.87); Eosinophils % 2.4 % (0.00-10.9); Hematocrit 35.1 VOL% (35.7-47.0); Hemoglobin 11.4 GM/DL (12.0-16.0); Immature Granulocytes % 0.4 %; Immature Granulocytes Absolute 0.02 #; Lymphocytes # 0.8 10*3/uL (1.4-4.0); Mean Corpuscular HGB Conc 32.5 GM/DL (32-36); Mean Corpuscular Hemoglobin 30 PG (27-34); Mean Corpuscular Volume 91.6 FL (87-102); Mean Platelet Volume 10.1 FL (9.6-12.0); Monocytes # 0.6 10*3/uL (0.11-0.8); Monocytes % 10.5 % (1.7-12.7); Neutrophils # 3.9 10*3/uL (1.4-7.4); Neutrophils % 71.1 % (38.7-73.9); Platelet Count 112 T/CUMM (130-400); Red Blood Count 3.83 MC/CUMM (3.8-5.5); White Blood Count 5.4 T/CUMM (4-12)
[2018-03-20 14:10] LABS: Alanine Aminotransferase 16 U/L (13-56); Albumin 3.4 G/DL (3.4-5.0); Alkaline Phosphatase 70 U/L (45-117); Aspartate Amino Transferase 14 U/L (0-37); Blood Urea Nitrogen 13 MG/DL (7-18); Calcium 8.3 MG/DL (8.5-10.1); Glucose 111 MG/DL (74-106); Osmolality,Calculated 277.5 MOS/KG (273-304); Potassium 4.5 MMOL/L (3.5-5.1); Sodium 139 MMOL/L (136-145); Total Protein 6.4 G/DL (6.4-8.3); Troponin I < 0.015 NG/ML (0.00-0.045)
[2018-03-20 14:22] LABS: PT Patient Result 10.4 SECS; Partial Thromboplastin Time 25.1 SECS (0-40)
[2018-03-20 14:34] LABS: Apearance,Urine CLEAR (Clear); Bacteria,Urine Occasional /HPF (Few); Bilirubin,Urine Negative (Negative); Blood, Urine Negative (Negative); Glucose,Urine (UA) Negative (Negative); Ketones,Urine Negative (Negative); Mucus,Urine Occasional /LPF (Occasional); Nitrite,Urine Negative (Negative); Protein,Urine Negative; RBC,Urine <1 /HPF (0-4); Squamous Epithelial Cell,Urine Occasional /HPF (0-10); Urine Color Straw (Yellow); Urine Specific Gravity 1.006 (1.001-1.035); Urine Urobilinogen < 2.0 EU/DL (0.2-1.0); WBC,Urine 18 /HPF (0-6)
[2018-03-20 15:26] LABS: Barbiturates Screen,Urine Negative (Negative); Benzodiazepines Screen,Urine Negative (Negative); Cannabinoid Screen,Urine Negative (Negative); Opiate Screen,Urine Negative (Negative); Phencyclidine Screen,Urine Negative (Negative)
[2018-03-20] MEDS ORDERED: DEXTROSE 50% 25 GM/50 ML VIAL IV PRN (18:18)
[2018-03-20] MEDS ORDERED: GLUCAGON 1 MG VIAL IM PRN (18:18)
[2018-03-20] MEDS ORDERED: ONDANSETRON 4 MG/2 ML VIAL IV PRN (18:18)
[2018-03-20] MEDS ORDERED: OLOPATADINE 0.1% OPH SOLN 5 ML BOTTLE LEFT EYE PRN (18:27)
[2018-03-20] MEDS ORDERED: cefTRIAXone 1,000 MG in SYRINGE 1 EACH IV SCH (18:30)
[2018-03-20] MEDS ORDERED: LORazepam 2 MG/1 ML VIAL IV PRN (18:30)
[2018-03-20] MEDS: DIVALPROEX 500 MG TABLET PO SCH (19:10)
[2018-03-20] MEDS ORDERED: cefTRIAXone 1,000 MG VIAL ONE (19:14)
[2018-03-20] MEDS ORDERED: DIVALPROEX 500 MG TABLET PO SCH (21:00)
[2018-03-20] MEDS: INSULIN REGULAR 100 UNIT/ML SUBCUT SCH (23:40)
[2018-03-20] MEDS: SODIUM CHLORIDE 0.9% 1,000 ML IV SCH (23:55)
[2018-03-21] MEDS: QUEtiapine 25 MG TABLET PO SCH ×2 (01:07→11:28)
[2018-03-21] MEDS: MAGNESIUM OXIDE 400 MG TABLET PO SCH ×2 (01:07→09:39)
[2018-03-21] MEDS: PANTOPRAZOLE 40 MG TABLET PO SCH ×2 (01:07→09:39)
[2018-03-21 04:03] LABS: Basophils % 0.5 % (0.0-0.8); Eosinophils # 0.1 10*3/uL (0.0-0.87); Eosinophils % 1.6 % (0.00-10.9); Hematocrit 33.5 VOL% (35.7-47.0); Immature Granulocytes % 0.3 %; Immature Granulocytes Absolute 0.02 #; Lymphocytes # 1.2 10*3/uL (1.4-4.0); Mean Corpuscular HGB Conc 32.8 GM/DL (32-36); Mean Corpuscular Hemoglobin 30 PG (27-34); Mean Corpuscular Volume 91.3 FL (87-102); Mean Platelet Volume 10.4 FL (9.6-12.0); Monocytes # 0.8 10*3/uL (0.11-0.8); Neutrophils # 5.1 10*3/uL (1.4-7.4); Neutrophils % 69.6 % (38.7-73.9); Platelet Count 129 T/CUMM (130-400); Red Blood Count 3.67 MC/CUMM (3.8-5.5); Red Cell Distribution Width 15.9 % (9.3-17.3); White Blood Count 7.3 T/CUMM (4-12)
[2018-03-21 04:14] LABS: Calcium 8.4 MG/DL (8.5-10.1); Osmolality,Calculated 278.5 MOS/KG (273-304); Potassium 4.5 MMOL/L (3.5-5.1)
[2018-03-21] MEDS ORDERED: LEVOTHYROXINE 112 MCG TABLET PO SCH (07:00)
[2018-03-21] MEDS: INSULIN REGULAR 100 UNIT/ML SUBCUT SCH ×3 (07:14→15:52)
[2018-03-21] MEDS ORDERED: METOPROLOL SUCCINATE XL 50 MG TABLET PO SCH (09:00)
[2018-03-21] MEDS ORDERED: ASPIRIN EC 81 MG TABLET PO SCH (09:00)
[2018-03-21] MEDS ORDERED: amLODIPine 5 MG TABLET PO SCH (09:00)
[2018-03-21] MEDS ORDERED: PANTOPRAZOLE 40 MG TABLET PO SCH (09:00)
[2018-03-21] MEDS ORDERED: ATORVASTATIN 40 MG TABLET PO SCH (09:00)
[2018-03-21] MEDS ORDERED: DIGOXIN 0.125 MG TABLET PO SCH (09:00)
[2018-03-21] MEDS ORDERED: SERTRALINE 100 MG TABLET PO SCH (09:00)
[2018-03-21] MEDS ORDERED: clonazePAM 0.5 MG TABLET PO SCH (10:30)
[2018-03-21] MEDS: SODIUM CHLORIDE 0.9% 1,000 ML IV SCH (10:31)
[2018-03-21] MEDS: DIVALPROEX 500 MG TABLET PO SCH (11:28)
[2018-03-21] MEDS ORDERED: AMPICILLIN 500 MG CAPSULE PO SCH (13:00)
[2018-03-21 16:22] VITALS: BP 120/68
== END 2018-03-21 17:19 | disposition home health service (06) | DRG 690 ==
LOC: N.ED 09:50 → N.EDINP 18:18 → N.TELES 03-21 13:11
PROVIDERS: ADMIT Internal Medicine; ATTEND Internal Medicine

== ENCOUNTER 2018-04-25 10:09 | Observation (INO) ==
[2018-04-25 11:18] LABS: Basophils % 0.7 % (0.0-0.8); Eosinophils # 0.1 10*3/uL (0.0-0.87); Eosinophils % 1.7 % (0.00-10.9); Hematocrit 33.5 VOL% (35.7-47.0); Hemoglobin 10.8 GM/DL (12.0-16.0); Immature Granulocytes % 0.2 %; Immature Granulocytes Absolute 0.01 #; Lymphocytes # 0.6 10*3/uL (1.4-4.0); Lymphocytes % 9.3 % (21.3-54.2); Mean Corpuscular HGB Conc 32.2 GM/DL (32-36); Mean Corpuscular Hemoglobin 29 PG (27-34); Mean Corpuscular Volume 90.8 FL (87-102); Mean Platelet Volume 10.5 FL (9.6-12.0); Monocytes # 0.7 10*3/uL (0.11-0.8); Monocytes % 11.2 % (1.7-12.7); Neutrophils # 4.6 10*3/uL (1.4-7.4); Neutrophils % 76.9 % (38.7-73.9); Platelet Count 142 T/CUMM (130-400); Red Blood Count 3.69 MC/CUMM (3.8-5.5); Red Cell Distribution Width 14.8 % (9.3-17.3)
[2018-04-25 11:28] LABS: Apearance,Urine CLEAR (Clear); Bilirubin,Urine Negative (Negative); Blood, Urine Negative (Negative); Glucose,Urine (UA) Negative (Negative); Ketones,Urine 20 mg/dL (Negative); Mucus,Urine Occasional /LPF (Occasional); Nitrite,Urine Negative (Negative); Protein,Urine 30 MG/DL; RBC,Urine <1 /HPF (0-4); Squamous Epithelial Cell,Urine Occasional /HPF (0-10); Urine Color Yellow (Yellow); Urine Specific Gravity 1.012 (1.001-1.035); Urine Urobilinogen < 2.0 EU/DL (0.2-1.0); WBC,Urine 1 /HPF (0-6)
[2018-04-25 11:43] LABS: Albumin 3.1 G/DL (3.4-5.0); Calcium 8.2 MG/DL (8.5-10.1); Osmolality,Calculated 283.4 MOS/KG (273-304); Potassium 3.9 MMOL/L (3.5-5.1); Total Protein 6.1 G/DL (6.4-8.3)
[2018-04-25] MEDS ORDERED: DEXTROSE 50% 25 GM/50 ML VIAL IV PRN ×2 (13:15→15:30)
[2018-04-25] MEDS ORDERED: GLUCAGON 1 MG VIAL IM PRN ×2 (13:15→15:30)
[2018-04-25] MEDS ORDERED: diphenhydrAMINE CAP 25 MG CAPSULE PO PRN (15:09)
[2018-04-25] MEDS ORDERED: ACETAMINOPHEN 325 MG TABLET PO PRN (15:09)
[2018-04-25] MEDS ORDERED: DOCUSATE SODIUM 100 MG CAPSULE PO PRN (15:09)
[2018-04-25] MEDS ORDERED: ONDANSETRON 4 MG/2 ML VIAL IV PRN (15:09)
[2018-04-25] MEDS ORDERED: NAPROXEN 250 MG TABLET PO PRN (15:37)
[2018-04-25] MEDS ORDERED: OLOPATADINE 0.1% OPH SOLN 5 ML BOTTLE LEFT EYE PRN (15:37)
[2018-04-25] MEDS: INSULIN LISPRO 100 UNIT/ML SUBCUT SCH (17:10)
[2018-04-25] MEDS: ENOXAPARIN 30 MG/0.3 ML SYRINGE SUBCUT SCH (17:10)
[2018-04-25] MEDS: PANTOPRAZOLE 40 MG TABLET PO SCH (17:11)
[2018-04-25] MEDS: POTASSIUM CHLORIDE 20 MEQ TABLET PO SCH (17:17)
[2018-04-25] MEDS: DIGOXIN 0.125 MG TABLET PO SCH (17:17)
[2018-04-25] MEDS: FUROSEMIDE 40 MG TABLET PO SCH (17:17)
[2018-04-25] MEDS: SERTRALINE 100 MG TABLET PO SCH (17:17)
[2018-04-25] MEDS ORDERED: ASPIRIN 325 MG TABLET ONE (18:03)
[2018-04-25] MEDS ORDERED: NITROGLYCERIN SL 0.4 MG TABLET SL ONE (18:03)
[2018-04-25] MEDS ORDERED: ASPIRIN CHEW 81 MG TABLET PO ONE ×2 (18:03→18:05)
[2018-04-25] MEDS ORDERED: NITROGLYCERIN SL 0.4 MG TABLET SL PRN (18:03)
[2018-04-25 18:41] LABS: ABG Base Excess 2.2 MMOL/L (-2.5-2.5); ABG HCO3 26.3 MMOL/L (20-26); ABG Oxygen Saturation 95.7 % (95-100); ABG PCO2 37.3 MM HG (35-48); ABG PH 7.452 (7.35-7.45); ABG PO2 78.6 MM HG (80-95); ABG TCO2 23.4 MMOL/L (23-27)
[2018-04-25 18:49] LABS: Basophils % 0.4 % (0.0-0.8); Eosinophils # 0.1 10*3/uL (0.0-0.87); Eosinophils % 0.8 % (0.00-10.9); Hematocrit 33.4 VOL% (35.7-47.0); Hemoglobin 10.6 GM/DL (12.0-16.0); Immature Granulocytes % 0.5 %; Immature Granulocytes Absolute 0.04 #; Lymphocytes # 0.7 10*3/uL (1.4-4.0); Lymphocytes % 8.4 % (21.3-54.2); Mean Corpuscular HGB Conc 31.7 GM/DL (32-36); Mean Corpuscular Hemoglobin 29 PG (27-34); Mean Corpuscular Volume 91.3 FL (87-102); Mean Platelet Volume 10.3 FL (9.6-12.0); Monocytes # 0.7 10*3/uL (0.11-0.8); Monocytes % 8.8 % (1.7-12.7); Neutrophils # 6.4 10*3/uL (1.4-7.4); Neutrophils % 81.1 % (38.7-73.9); Platelet Count 164 T/CUMM (130-400); Red Blood Count 3.66 MC/CUMM (3.8-5.5); White Blood Count 7.9 T/CUMM (4-12)
[2018-04-25 19:15] LABS: Albumin 3.1 G/DL (3.4-5.0); Bilirubin,Total 0.9 MG/DL (0.2-1.0); Calcium 8.5 MG/DL (8.5-10.1); Osmolality,Calculated 283.5 MOS/KG (273-304); Potassium 3.8 MMOL/L (3.5-5.1); Total Protein 6.2 G/DL (6.4-8.3)
[2018-04-25] MEDS: QUEtiapine 25 MG TABLET PO SCH (21:54)
[2018-04-25] MEDS: MAGNESIUM OXIDE 400 MG TABLET PO SCH (21:54)
[2018-04-25] MEDS: DIVALPROEX 500 MG TABLET PO SCH (21:55)
[2018-04-26] MEDS: traMADol 50 MG TABLET PO PRN ×2 (00:41→15:19)
[2018-04-26 03:54] LABS: Basophils % 0.4 % (0.0-0.8); Eosinophils # 0.1 10*3/uL (0.0-0.87); Eosinophils % 1.2 % (0.00-10.9); Hematocrit 33.6 VOL% (35.7-47.0); Hemoglobin 10.6 GM/DL (12.0-16.0); Immature Granulocytes % 0.4 %; Immature Granulocytes Absolute 0.03 #; Lymphocytes # 1.4 10*3/uL (1.4-4.0); Lymphocytes % 18.6 % (21.3-54.2); Mean Corpuscular HGB Conc 31.5 GM/DL (32-36); Mean Corpuscular Hemoglobin 29 PG (27-34); Mean Corpuscular Volume 91.6 FL (87-102); Mean Platelet Volume 10.1 FL (9.6-12.0); Monocytes % 13.2 % (1.7-12.7); Neutrophils % 66.2 % (38.7-73.9); Platelet Count 185 T/CUMM (130-400); Red Blood Count 3.67 MC/CUMM (3.8-5.5); Red Cell Distribution Width 15.1 % (9.3-17.3); White Blood Count 7.6 T/CUMM (4-12)
[2018-04-26 04:24] LABS: Calcium 8.4 MG/DL (8.5-10.1); Osmolality,Calculated 282.7 MOS/KG (273-304); Potassium 3.7 MMOL/L (3.5-5.1)
[2018-04-26 04:28] LABS: VLDL CHOLESTEROL 24.4 MG/DL
[2018-04-26] MEDS: INSULIN LISPRO 100 UNIT/ML SUBCUT SCH ×3 (08:03→16:09)
[2018-04-26] MEDS ORDERED: ALBUTEROL 2.5 MG/3 ML NEB RESP TX PRN (08:52)
[2018-04-26] MEDS: LEVOTHYROXINE 112 MCG TABLET PO SCH (09:23)
[2018-04-26] MEDS: SERTRALINE 100 MG TABLET PO SCH (09:23)
[2018-04-26] MEDS: POTASSIUM CHLORIDE 20 MEQ TABLET PO SCH (09:23)
[2018-04-26] MEDS: clonazePAM 0.5 MG TABLET PO PRN (09:23)
[2018-04-26] MEDS: ATORVASTATIN 40 MG TABLET PO SCH (09:23)
[2018-04-26] MEDS: DIGOXIN 0.125 MG TABLET PO SCH (09:24)
[2018-04-26] MEDS: METOPROLOL SUCCINATE XL 50 MG TABLET PO SCH (09:24)
[2018-04-26] MEDS: DIVALPROEX 500 MG TABLET PO SCH ×2 (09:24→22:26)
[2018-04-26] MEDS: QUEtiapine 25 MG TABLET PO SCH ×2 (09:24→22:27)
[2018-04-26] MEDS: MAGNESIUM OXIDE 400 MG TABLET PO SCH ×2 (09:24→22:26)
[2018-04-26] MEDS: PANTOPRAZOLE 40 MG TABLET PO SCH (09:24)
[2018-04-26] MEDS: FUROSEMIDE 40 MG TABLET PO SCH (09:24)
[2018-04-26] MEDS: guaiFENesin/DM ER 600-30 MG TABLET PO SCH ×2 (09:44→22:26)
[2018-04-26] MEDS: AZITHROMYCIN INJ 500 MG in SODIUM CHLORIDE 0.9% 250 ML IV SCH (09:45)
[2018-04-26] MEDS: cefTRIAXone 1,000 MG in SYRINGE 1 EACH IV SCH (09:45)
[2018-04-26] MEDS: ALBUTEROL/IPRATROPIUM 3 ML NEB RESP TX SCH ×2 (13:18→19:37)
[2018-04-26] MEDS: ENOXAPARIN 30 MG/0.3 ML SYRINGE SUBCUT SCH (22:27)
[2018-04-27] MEDS: ALBUTEROL/IPRATROPIUM 3 ML NEB RESP TX SCH ×2 (00:51→07:06)
[2018-04-27 05:33] LABS: Basophils % 0.4 % (0.0-0.8); Eosinophils # 0.2 10*3/uL (0.0-0.87); Eosinophils % 3.5 % (0.00-10.9); Hematocrit 31.5 VOL% (35.7-47.0); Hemoglobin 9.5 GM/DL (12.0-16.0); Immature Granulocytes % 0.2 %; Immature Granulocytes Absolute 0.01 #; Lymphocytes % 21.1 % (21.3-54.2); Mean Corpuscular HGB Conc 30.2 GM/DL (32-36); Mean Corpuscular Hemoglobin 28 PG (27-34); Mean Corpuscular Volume 93.8 FL (87-102); Mean Platelet Volume 11.1 FL (9.6-12.0); Monocytes # 0.8 10*3/uL (0.11-0.8); Monocytes % 15.4 % (1.7-12.7); Neutrophils # 2.9 10*3/uL (1.4-7.4); Neutrophils % 59.4 % (38.7-73.9); Platelet Count 142 T/CUMM (130-400); Red Blood Count 3.36 MC/CUMM (3.8-5.5); Red Cell Distribution Width 15.3 % (9.3-17.3); White Blood Count 4.9 T/CUMM (4-12)
[2018-04-27 05:48] LABS: Osmolality,Calculated 285.1 MOS/KG (273-304); Potassium 3.9 MMOL/L (3.5-5.1)
[2018-04-27] MEDS: LEVOTHYROXINE 112 MCG TABLET PO SCH (06:43)
[2018-04-27] MEDS: AZITHROMYCIN INJ 500 MG in SODIUM CHLORIDE 0.9% 250 ML IV SCH (09:00)
[2018-04-27] MEDS: MAGNESIUM OXIDE 400 MG TABLET PO SCH ×2 (09:56→21:08)
[2018-04-27] MEDS: SERTRALINE 100 MG TABLET PO SCH (09:56)
[2018-04-27] MEDS: guaiFENesin/DM ER 600-30 MG TABLET PO SCH ×2 (09:56→21:08)
[2018-04-27] MEDS: QUEtiapine 25 MG TABLET PO SCH ×2 (09:56→21:08)
[2018-04-27] MEDS: DIGOXIN 0.125 MG TABLET PO SCH (09:56)
[2018-04-27] MEDS: FUROSEMIDE 40 MG TABLET PO SCH (09:56)
[2018-04-27] MEDS: METOPROLOL SUCCINATE XL 50 MG TABLET PO SCH (09:57)
[2018-04-27] MEDS: INSULIN LISPRO 100 UNIT/ML SUBCUT SCH ×3 (09:57→17:19)
[2018-04-27] MEDS: ATORVASTATIN 40 MG TABLET PO SCH (09:57)
[2018-04-27] MEDS: DIVALPROEX 500 MG TABLET PO SCH ×2 (09:57→21:08)
[2018-04-27] MEDS: POTASSIUM CHLORIDE 20 MEQ TABLET PO SCH (10:01)
[2018-04-27] MEDS: PANTOPRAZOLE 40 MG TABLET PO SCH (10:01)
[2018-04-27] MEDS: cefTRIAXone 1,000 MG in SYRINGE 1 EACH IV SCH (10:01)
[2018-04-27] MEDS ORDERED: TUBERCULIN SKIN TEST 0.1 ML SYRINGE INTRADERM ONE (11:00)
[2018-04-27] MEDS ORDERED: MORPHINE 4 MG/1 ML VIAL IV PRN (14:02)
[2018-04-27] MEDS ORDERED: SODIUM CHLORIDE 0.9% 250 ML IV ONE (14:03)
[2018-04-27] MEDS: ENOXAPARIN 30 MG/0.3 ML SYRINGE SUBCUT SCH (21:09)
[2018-04-28] MEDS: INSULIN LISPRO 100 UNIT/ML SUBCUT SCH ×3 (09:35→16:31)
[2018-04-28] MEDS: DIGOXIN 0.125 MG TABLET PO SCH (09:49)
[2018-04-28] MEDS: clonazePAM 0.5 MG TABLET PO PRN (09:49)
[2018-04-28] MEDS: METOPROLOL SUCCINATE XL 50 MG TABLET PO SCH (09:49)
[2018-04-28] MEDS: ATORVASTATIN 40 MG TABLET PO SCH (09:49)
[2018-04-28] MEDS: DIVALPROEX 500 MG TABLET PO SCH ×2 (09:49→21:27)
[2018-04-28] MEDS: LEVOTHYROXINE 112 MCG TABLET PO SCH (09:50)
[2018-04-28] MEDS: MAGNESIUM OXIDE 400 MG TABLET PO SCH ×2 (09:50→21:27)
[2018-04-28] MEDS: POTASSIUM CHLORIDE 20 MEQ TABLET PO SCH (09:50)
[2018-04-28] MEDS: PANTOPRAZOLE 40 MG TABLET PO SCH (09:50)
[2018-04-28] MEDS: guaiFENesin/DM ER 600-30 MG TABLET PO SCH ×2 (09:50→21:27)
[2018-04-28] MEDS: QUEtiapine 25 MG TABLET PO SCH ×2 (09:50→21:27)
[2018-04-28] MEDS: SERTRALINE 100 MG TABLET PO SCH (09:50)
[2018-04-28] MEDS: FUROSEMIDE 40 MG TABLET PO SCH (09:50)
[2018-04-28] MEDS: ENOXAPARIN 30 MG/0.3 ML SYRINGE SUBCUT SCH (21:27)
[2018-04-29] MEDS: INSULIN LISPRO 100 UNIT/ML SUBCUT SCH ×3 (08:15→17:06)
[2018-04-29] MEDS: PANTOPRAZOLE 40 MG TABLET PO SCH (10:00)
[2018-04-29] MEDS: DIVALPROEX 500 MG TABLET PO SCH ×2 (10:00→20:38)
[2018-04-29] MEDS: SERTRALINE 100 MG TABLET PO SCH (10:00)
[2018-04-29] MEDS: MAGNESIUM OXIDE 400 MG TABLET PO SCH ×2 (10:00→20:38)
[2018-04-29] MEDS: clonazePAM 0.5 MG TABLET PO PRN (10:00)
[2018-04-29] MEDS: POTASSIUM CHLORIDE 20 MEQ TABLET PO SCH (10:01)
[2018-04-29] MEDS: METOPROLOL SUCCINATE XL 50 MG TABLET PO SCH (10:01)
[2018-04-29] MEDS: FUROSEMIDE 40 MG TABLET PO SCH (10:02)
[2018-04-29] MEDS: LEVOTHYROXINE 112 MCG TABLET PO SCH (10:02)
[2018-04-29] MEDS: guaiFENesin/DM ER 600-30 MG TABLET PO SCH ×2 (10:02→20:38)
[2018-04-29] MEDS: QUEtiapine 25 MG TABLET PO SCH ×2 (10:02→20:38)
[2018-04-29] MEDS: ATORVASTATIN 40 MG TABLET PO SCH (10:02)
[2018-04-29] MEDS: DIGOXIN 0.125 MG TABLET PO SCH (10:02)
[2018-04-29 10:29] LABS: Basophils % 0.6 % (0.0-0.8); Eosinophils # 0.4 10*3/uL (0.0-0.87); Eosinophils % 5.5 % (0.00-10.9); Hemoglobin 12.6 GM/DL (12.0-16.0); Immature Granulocytes % 0.1 %; Immature Granulocytes Absolute 0.01 #; Lymphocytes # 1.8 10*3/uL (1.4-4.0); Lymphocytes % 26.8 % (21.3-54.2); Mean Corpuscular HGB Conc 30.7 GM/DL (32-36); Mean Corpuscular Hemoglobin 28 PG (27-34); Mean Corpuscular Volume 91.3 FL (87-102); Mean Platelet Volume 10.5 FL (9.6-12.0); Monocytes # 0.8 10*3/uL (0.11-0.8); Monocytes % 12.3 % (1.7-12.7); Neutrophils # 3.7 10*3/uL (1.4-7.4); Neutrophils % 54.7 % (38.7-73.9); Platelet Count 221 T/CUMM (130-400); Red Blood Count 4.49 MC/CUMM (3.8-5.5); Red Cell Distribution Width 15.1 % (9.3-17.3); White Blood Count 6.8 T/CUMM (4-12)
[2018-04-29 11:18] LABS: Calcium 8.4 MG/DL (8.5-10.1); Osmolality,Calculated 284.4 MOS/KG (273-304); Potassium 4.2 MMOL/L (3.5-5.1)
[2018-04-29] MEDS: ENOXAPARIN 30 MG/0.3 ML SYRINGE SUBCUT SCH (20:38)
[2018-04-30] MEDS: LEVOTHYROXINE 112 MCG TABLET PO SCH (06:08)
[2018-04-30] MEDS: INSULIN LISPRO 100 UNIT/ML SUBCUT SCH ×3 (09:35→16:07)
[2018-04-30] MEDS: FUROSEMIDE 40 MG TABLET PO SCH (09:41)
[2018-04-30] MEDS: SERTRALINE 100 MG TABLET PO SCH (09:42)
[2018-04-30] MEDS: DIVALPROEX 500 MG TABLET PO SCH ×2 (09:47→20:46)
[2018-04-30] MEDS: guaiFENesin/DM ER 600-30 MG TABLET PO SCH ×2 (09:47→20:45)
[2018-04-30] MEDS: MAGNESIUM OXIDE 400 MG TABLET PO SCH ×2 (09:47→20:46)
[2018-04-30] MEDS: QUEtiapine 25 MG TABLET PO SCH ×2 (09:47→20:46)
[2018-04-30] MEDS: POTASSIUM CHLORIDE 20 MEQ TABLET PO SCH (09:48)
[2018-04-30] MEDS: PANTOPRAZOLE 40 MG TABLET PO SCH (09:48)
[2018-04-30] MEDS: DIGOXIN 0.125 MG TABLET PO SCH (09:49)
[2018-04-30] MEDS: METOPROLOL SUCCINATE XL 50 MG TABLET PO SCH (09:49)
[2018-04-30] MEDS: ATORVASTATIN 40 MG TABLET PO SCH (09:49)
[2018-04-30] MEDS ORDERED: SODIUM CHLORIDE 0.9% 500 ML IV ONE (16:55)
[2018-04-30] MEDS: ENOXAPARIN 30 MG/0.3 ML SYRINGE SUBCUT SCH (20:45)
[2018-04-30] MEDS: traMADol 50 MG TABLET PO PRN (22:40)
[2018-05-01] MEDS: LEVOTHYROXINE 112 MCG TABLET PO SCH (06:23)
[2018-05-01] MEDS: INSULIN LISPRO 100 UNIT/ML SUBCUT SCH ×3 (07:59→18:12)
[2018-05-01] MEDS: ATORVASTATIN 40 MG TABLET PO SCH (09:05)
[2018-05-01] MEDS: PANTOPRAZOLE 40 MG TABLET PO SCH (09:05)
[2018-05-01] MEDS: MAGNESIUM OXIDE 400 MG TABLET PO SCH ×2 (09:05→21:01)
[2018-05-01] MEDS: FUROSEMIDE 40 MG TABLET PO SCH (09:05)
[2018-05-01] MEDS: DIVALPROEX 500 MG TABLET PO SCH ×2 (09:05→21:02)
[2018-05-01] MEDS: METOPROLOL SUCCINATE XL 50 MG TABLET PO SCH (09:06)
[2018-05-01] MEDS: DIGOXIN 0.125 MG TABLET PO SCH (09:06)
[2018-05-01] MEDS: SERTRALINE 100 MG TABLET PO SCH (09:06)
[2018-05-01] MEDS: guaiFENesin/DM ER 600-30 MG TABLET PO SCH ×2 (09:06→21:02)
[2018-05-01] MEDS: QUEtiapine 25 MG TABLET PO SCH ×2 (09:06→21:02)
[2018-05-01] MEDS: POTASSIUM CHLORIDE 20 MEQ TABLET PO SCH (09:06)
[2018-05-01 09:28] LABS: Basophils % 0.5 % (0.0-0.8); Eosinophils # 0.2 10*3/uL (0.0-0.87); Eosinophils % 3.4 % (0.00-10.9); Immature Granulocytes % 0.3 %; Immature Granulocytes Absolute 0.02 #; Lymphocytes # 1.7 10*3/uL (1.4-4.0); Lymphocytes % 26.5 % (21.3-54.2); Mean Corpuscular HGB Conc 30.6 GM/DL (32-36); Mean Corpuscular Hemoglobin 28 PG (27-34); Mean Corpuscular Volume 92.3 FL (87-102); Mean Platelet Volume 10.5 FL (9.6-12.0); Monocytes # 0.6 10*3/uL (0.11-0.8); Neutrophils # 3.9 10*3/uL (1.4-7.4); Neutrophils % 60.3 % (38.7-73.9); Platelet Count 191 T/CUMM (130-400); Red Cell Distribution Width 14.8 % (9.3-17.3); White Blood Count 6.5 T/CUMM (4-12)
[2018-05-01 11:27] LABS: Calcium 8.3 MG/DL (8.5-10.1); Osmolality,Calculated 284.5 MOS/KG (273-304); Potassium 4.4 MMOL/L (3.5-5.1)
[2018-05-01] MEDS: ENOXAPARIN 30 MG/0.3 ML SYRINGE SUBCUT SCH (21:04)
[2018-05-02] MEDS: LEVOTHYROXINE 112 MCG TABLET PO SCH (06:55)
[2018-05-02] MEDS: INSULIN LISPRO 100 UNIT/ML SUBCUT SCH ×2 (07:46→11:45)
[2018-05-02] MEDS: FUROSEMIDE 40 MG TABLET PO SCH (08:09)
[2018-05-02] MEDS: DIGOXIN 0.125 MG TABLET PO SCH (08:09)
[2018-05-02] MEDS: POTASSIUM CHLORIDE 20 MEQ TABLET PO SCH (08:09)
[2018-05-02] MEDS: MAGNESIUM OXIDE 400 MG TABLET PO SCH (08:09)
[2018-05-02] MEDS: DIVALPROEX 500 MG TABLET PO SCH (08:09)
[2018-05-02] MEDS: ATORVASTATIN 40 MG TABLET PO SCH (08:09)
[2018-05-02] MEDS: PANTOPRAZOLE 40 MG TABLET PO SCH (08:10)
[2018-05-02] MEDS: guaiFENesin/DM ER 600-30 MG TABLET PO SCH (08:10)
[2018-05-02] MEDS: SERTRALINE 100 MG TABLET PO SCH (08:10)
[2018-05-02] MEDS: QUEtiapine 25 MG TABLET PO SCH (08:10)
[2018-05-02] MEDS: METOPROLOL SUCCINATE XL 50 MG TABLET PO SCH (08:10)
[2018-05-02 12:14] VITALS: BP 125/99
== END 2018-05-02 13:40 | disposition home health service (06) ==
LOC: EDBD → EDUNIT# → N.ED 10:09 → N.EDINP 10:09 → N.2E 16:56
PROVIDERS: ADMIT Internal Medicine; ATTEND Internal Medicine

== ENCOUNTER 2018-09-01 15:22 | Inpatient (IN) ==
[2018-09-01 16:08] LABS: Basophils % 0.4 % (0.0-0.8); Eosinophils # 0.1 10*3/uL (0.0-0.87); Eosinophils % 0.7 % (0.00-10.9); Hematocrit 39.3 VOL% (35.7-47.0); Hemoglobin 12.2 GM/DL (12.0-16.0); Immature Granulocytes % 0.6 %; Immature Granulocytes Absolute 0.06 #; Lymphocytes % 9.1 % (21.3-54.2); Mean Corpuscular Hemoglobin 28 PG (27-34); Mean Corpuscular Volume 89.5 FL (87-102); Mean Platelet Volume 9.2 FL (9.6-12.0); Monocytes # 0.5 10*3/uL (0.11-0.8); Monocytes % 4.7 % (1.7-12.7); Neutrophils # 9.1 10*3/uL (1.4-7.4); Neutrophils % 84.5 % (38.7-73.9); Platelet Count 305 T/CUMM (130-400); Red Blood Count 4.39 MC/CUMM (3.8-5.5); Red Cell Distribution Width 17.9 % (9.3-17.3); White Blood Count 10.7 T/CUMM (4-12)
[2018-09-01 16:36] LABS: Albumin 3.4 G/DL (3.4-5.0); Bilirubin,Total 0.7 MG/DL (0.2-1.0); Calcium 8.4 MG/DL (8.5-10.1); Osmolality,Calculated 272.1 MOS/KG (273-304); Potassium 4.2 MMOL/L (3.5-5.1); Total Protein 7.6 G/DL (6.4-8.3)
[2018-09-01 16:55] LABS: INR 0.9; PT Patient Result 9.7 SECS; Partial Thromboplastin Time 23.1 SECS (0-40)
[2018-09-01 16:55] LABS: Apearance,Urine CLEAR (Clear); Bacteria,Urine Occasional /HPF (Few); Bilirubin,Urine Negative (Negative); Blood, Urine Negative (Negative); Glucose,Urine (UA) Negative (Negative); Ketones,Urine Negative (Negative); Mucus,Urine Occasional /LPF (Occasional); Nitrite,Urine Negative (Negative); Protein,Urine Negative; Urine Color Straw (Yellow); Urine Specific Gravity 1.008 (1.001-1.035); Urine Urobilinogen < 2.0 EU/DL (0.2-1.0); WBC,Urine 1 /HPF (0-6)
[2018-09-01] MEDS ORDERED: cefTRIAXone 1,000 MG in SODIUM CHLORIDE 0.9% 100 ML IV STA (17:15)
[2018-09-01 17:26] LABS: Barbiturates Screen,Urine Negative (Negative); Benzodiazepines Screen,Urine Negative (Negative); Cannabinoid Screen,Urine Negative (Negative); Opiate Screen,Urine Negative (Negative); Phencyclidine Screen,Urine Negative (Negative)
[2018-09-01] MEDS ORDERED: DEXTROSE 50% 25 GM/50 ML VIAL IV PRN (17:38)
[2018-09-01] MEDS ORDERED: GLUCAGON 1 MG VIAL IM PRN (17:38)
[2018-09-01] MEDS ORDERED: ONDANSETRON 4 MG/2 ML VIAL IV PRN (17:38)
[2018-09-01] MEDS ORDERED: ALBUTEROL/IPRATROPIUM 3 ML NEB RESP TX PRN (18:45)
[2018-09-01] MEDS: SODIUM CHLORIDE 0.9% 1,000 ML IV SCH (21:19)
[2018-09-01] MEDS: INSULIN REGULAR 100 UNIT/ML SUBCUT SCH (21:19)
[2018-09-01] MEDS: QUEtiapine 25 MG TABLET PO SCH (21:20)
[2018-09-01] MEDS: AZITHROMYCIN INJ 500 MG in SODIUM CHLORIDE 0.9% 250 ML IV SCH (21:20)
[2018-09-02] MEDS: ACETAMINOPHEN 325 MG TABLET PO PRN ×3 (02:43→21:37)
[2018-09-02 05:46] LABS: Basophils % 0.4 % (0.0-0.8); Eosinophils # 0.1 10*3/uL (0.0-0.87); Eosinophils % 1.6 % (0.00-10.9); Hematocrit 32.3 VOL% (35.7-47.0); Immature Granulocytes % 0.4 %; Immature Granulocytes Absolute 0.03 #; Lymphocytes # 1.1 10*3/uL (1.4-4.0); Lymphocytes % 13.3 % (21.3-54.2); Mean Corpuscular Hemoglobin 28 PG (27-34); Mean Corpuscular Volume 90.2 FL (87-102); Mean Platelet Volume 10.7 FL (9.6-12.0); Monocytes # 0.7 10*3/uL (0.11-0.8); Monocytes % 9.1 % (1.7-12.7); Neutrophils # 6.1 10*3/uL (1.4-7.4); Neutrophils % 75.2 % (38.7-73.9); Platelet Count 235 T/CUMM (130-400); Red Blood Count 3.58 MC/CUMM (3.8-5.5); Red Cell Distribution Width 17.8 % (9.3-17.3); White Blood Count 8.2 T/CUMM (4-12)
[2018-09-02 06:06] LABS: Calcium 8.2 MG/DL (8.5-10.1); Osmolality,Calculated 270.1 MOS/KG (273-304); Thyroid Stimulating Hormone 76.2 uIU/ml (0.358-3.74)
[2018-09-02] MEDS: LEVOTHYROXINE 112 MCG TABLET PO SCH (07:34)
[2018-09-02] MEDS: ENOXAPARIN 40 MG/0.4 ML SYRINGE SUBCUT SCH (09:33)
[2018-09-02] MEDS: SERTRALINE 100 MG TABLET PO SCH (09:33)
[2018-09-02] MEDS: DILTIAZEM CD 240 MG CAPSULE PO SCH (09:34)
[2018-09-02] MEDS: QUEtiapine 25 MG TABLET PO SCH ×2 (09:35→21:37)
[2018-09-02] MEDS: PANTOPRAZOLE 40 MG TABLET PO SCH (09:35)
[2018-09-02] MEDS: ATORVASTATIN 40 MG TABLET PO SCH (09:35)
[2018-09-02] MEDS: INSULIN REGULAR 100 UNIT/ML SUBCUT SCH ×4 (09:35→21:38)
[2018-09-02] MEDS: METOPROLOL SUCCINATE XL 50 MG TABLET PO SCH (09:35)
[2018-09-02] MEDS ORDERED: guaiFENesin 200 MG/10 ML UDCUP PO PRN (15:16)
[2018-09-02 16:09] LABS: Apearance,Urine CLEAR (Clear); Bilirubin,Urine Negative (Negative); Blood, Urine Negative (Negative); Glucose,Urine (UA) Negative (Negative); Ketones,Urine Negative (Negative); Nitrite,Urine Negative (Negative); Protein,Urine Negative; RBC,Urine <1 /HPF (0-4); Squamous Epithelial Cell,Urine Occasional /HPF (0-10); Urine Color Yellow (Yellow); Urine Specific Gravity 1.009 (1.001-1.035); Urine Urobilinogen < 2.0 EU/DL (0.2-1.0)
[2018-09-02] MEDS: oxyCODONE IR 5 MG TABLET PO PRN (16:16)
[2018-09-02] MEDS: SODIUM CHLORIDE 0.9% 1,000 ML IV SCH (17:26)
[2018-09-02] MEDS: AZITHROMYCIN INJ 500 MG in SODIUM CHLORIDE 0.9% 250 ML IV SCH (17:45)
[2018-09-02] MEDS ORDERED: cefTRIAXone 1,000 MG in SYRINGE 1 EACH IV SCH (18:00)
[2018-09-03] MEDS: oxyCODONE IR 5 MG TABLET PO PRN (00:16)
[2018-09-03] MEDS: LEVOTHYROXINE 112 MCG TABLET PO SCH (07:18)
[2018-09-03 08:08] VITALS: BP 156/115
[2018-09-03] MEDS: INSULIN REGULAR 100 UNIT/ML SUBCUT SCH ×2 (08:20→14:53)
[2018-09-03] MEDS: SERTRALINE 100 MG TABLET PO SCH (09:24)
[2018-09-03] MEDS: METOPROLOL SUCCINATE XL 50 MG TABLET PO SCH (09:25)
[2018-09-03] MEDS: ATORVASTATIN 40 MG TABLET PO SCH (09:25)
[2018-09-03] MEDS: DILTIAZEM CD 240 MG CAPSULE PO SCH (09:25)
[2018-09-03] MEDS: ENOXAPARIN 40 MG/0.4 ML SYRINGE SUBCUT SCH (09:25)
[2018-09-03] MEDS: QUEtiapine 25 MG TABLET PO SCH (09:25)
[2018-09-03] MEDS: PANTOPRAZOLE 40 MG TABLET PO SCH (09:25)
== END 2018-09-03 11:30 | disposition home or self-care (01) | DRG 195 ==
LOC: N.ED 15:22 → N.EDINP 17:37 → N.2E 18:41
PROVIDERS: ADMIT Internal Medicine; ATTEND Internal Medicine

== ENCOUNTER 2018-09-06 09:12 | Inpatient (IN) ==
[2018-09-06 10:31] LABS: Basophils % 0.3 % (0.0-0.8); Eosinophils % 0.2 % (0.00-10.9); Hematocrit 30.1 VOL% (35.7-47.0); Hemoglobin 9.3 GM/DL (12.0-16.0); Immature Granulocytes % 0.4 %; Immature Granulocytes Absolute 0.05 #; Lymphocytes # 0.8 10*3/uL (1.4-4.0); Lymphocytes % 6.4 % (21.3-54.2); Mean Corpuscular HGB Conc 30.9 GM/DL (32-36); Mean Corpuscular Hemoglobin 28 PG (27-34); Mean Corpuscular Volume 90.9 FL (87-102); Monocytes # 0.6 10*3/uL (0.11-0.8); Neutrophils # 10.6 10*3/uL (1.4-7.4); Neutrophils % 87.7 % (38.7-73.9); Platelet Count 285 T/CUMM (130-400); Red Blood Count 3.31 MC/CUMM (3.8-5.5); Red Cell Distribution Width 17.9 % (9.3-17.3); White Blood Count 12.1 T/CUMM (4-12)
[2018-09-06 10:54] LABS: Calcium 8.8 MG/DL (8.5-10.1); Osmolality,Calculated 271.2 MOS/KG (273-304); Potassium 4.4 MMOL/L (3.5-5.1)
[2018-09-06] MEDS ORDERED: hydrALAZINE 20 MG/1 ML VIAL IV STA (11:07)
[2018-09-06] MEDS ORDERED: DEXTROSE 50% 25 GM/50 ML VIAL IV PRN (12:37)
[2018-09-06] MEDS ORDERED: BISACODYL 5 MG TABLET PO PRN (12:37)
[2018-09-06] MEDS ORDERED: ONDANSETRON 4 MG/2 ML VIAL IV PRN (12:37)
[2018-09-06] MEDS ORDERED: GLUCAGON 1 MG VIAL IM PRN (12:37)
[2018-09-06] MEDS: cefTRIAXone 1,000 MG in SYRINGE 1 EACH IV SCH (14:20)
[2018-09-06] MEDS: ENOXAPARIN 40 MG/0.4 ML SYRINGE SUBCUT SCH (14:20)
[2018-09-06] MEDS: AZITHROMYCIN 250 MG TABLET PO SCH (14:20)
[2018-09-06] MEDS: INSULIN REGULAR 100 UNIT/ML SUBCUT SCH ×2 (16:20→21:26)
[2018-09-06] MEDS: ACETAMINOPHEN 325 MG TABLET PO PRN (17:48)
[2018-09-06] MEDS: guaiFENesin/DM ER 600-30 MG TABLET PO PRN ×2 (18:30→21:26)
[2018-09-06] MEDS: QUEtiapine 25 MG TABLET PO SCH (21:26)
[2018-09-06] MEDS: ATORVASTATIN 40 MG TABLET PO SCH (21:26)
[2018-09-07] MEDS: LEVOTHYROXINE 112 MCG TABLET PO SCH (06:59)
[2018-09-07 07:29] LABS: Basophils # 0.1 10*3/uL (0.0-0.2); Basophils % 0.6 % (0.0-0.8); Eosinophils # 0.2 10*3/uL (0.0-0.87); Eosinophils % 2.8 % (0.00-10.9); Hematocrit 32.6 VOL% (35.7-47.0); Hemoglobin 9.9 GM/DL (12.0-16.0); Immature Granulocytes % 0.2 %; Immature Granulocytes Absolute 0.02 #; Lymphocytes # 1.2 10*3/uL (1.4-4.0); Lymphocytes % 15.2 % (21.3-54.2); Mean Corpuscular HGB Conc 30.4 GM/DL (32-36); Mean Corpuscular Hemoglobin 27 PG (27-34); Mean Corpuscular Volume 90.3 FL (87-102); Mean Platelet Volume 9.2 FL (9.6-12.0); Monocytes # 0.9 10*3/uL (0.11-0.8); Monocytes % 10.6 % (1.7-12.7); Neutrophils # 5.8 10*3/uL (1.4-7.4); Neutrophils % 70.6 % (38.7-73.9); Platelet Count 303 T/CUMM (130-400); Red Blood Count 3.61 MC/CUMM (3.8-5.5); Red Cell Distribution Width 17.7 % (9.3-17.3); White Blood Count 8.2 T/CUMM (4-12)
[2018-09-07] MEDS: INSULIN REGULAR 100 UNIT/ML SUBCUT SCH ×4 (08:13→20:41)
[2018-09-07] MEDS: METOPROLOL SUCCINATE XL 50 MG TABLET PO SCH (08:15)
[2018-09-07] MEDS: DILTIAZEM CD 240 MG CAPSULE PO SCH (08:15)
[2018-09-07] MEDS: QUEtiapine 25 MG TABLET PO SCH (08:15)
[2018-09-07] MEDS: AZITHROMYCIN 250 MG TABLET PO SCH (08:15)
[2018-09-07 10:26] LABS: Albumin 2.6 G/DL (3.4-5.0); Bilirubin,Total 0.6 MG/DL (0.2-1.0); Calcium 8.5 MG/DL (8.5-10.1); Potassium 4.3 MMOL/L (3.5-5.1); Total Protein 6.5 G/DL (6.4-8.3)
[2018-09-07] MEDS ORDERED: TUBERCULIN SKIN TEST 0.1 ML SYRINGE INTRADERM ONE (11:00)
[2018-09-07] MEDS: cefTRIAXone 1,000 MG in SYRINGE 1 EACH IV SCH (12:54)
[2018-09-07] MEDS: ENOXAPARIN 40 MG/0.4 ML SYRINGE SUBCUT SCH (13:30)
[2018-09-07] MEDS: ATORVASTATIN 40 MG TABLET PO SCH (20:41)
[2018-09-08 04:42] LABS: Basophils # 0.1 10*3/uL (0.0-0.2); Basophils % 0.7 % (0.0-0.8); Eosinophils # 0.2 10*3/uL (0.0-0.87); Eosinophils % 2.6 % (0.00-10.9); Hematocrit 29.3 VOL% (35.7-47.0); Hemoglobin 8.9 GM/DL (12.0-16.0); Immature Granulocytes % 0.6 %; Immature Granulocytes Absolute 0.04 #; Lymphocytes # 0.9 10*3/uL (1.4-4.0); Lymphocytes % 12.4 % (21.3-54.2); Mean Corpuscular HGB Conc 30.4 GM/DL (32-36); Mean Corpuscular Hemoglobin 27 PG (27-34); Mean Corpuscular Volume 90.2 FL (87-102); Mean Platelet Volume 9.4 FL (9.6-12.0); Monocytes # 0.5 10*3/uL (0.11-0.8); Monocytes % 6.7 % (1.7-12.7); Neutrophils # 5.3 10*3/uL (1.4-7.4); Platelet Count 278 T/CUMM (130-400); Red Blood Count 3.25 MC/CUMM (3.8-5.5); Red Cell Distribution Width 17.9 % (9.3-17.3); White Blood Count 6.8 T/CUMM (4-12)
[2018-09-08 05:03] LABS: Calcium 8.4 MG/DL (8.5-10.1); Osmolality,Calculated 281.7 MOS/KG (273-304); Potassium 4.3 MMOL/L (3.5-5.1)
[2018-09-08] MEDS: LEVOTHYROXINE 112 MCG TABLET PO SCH (05:39)
[2018-09-08] MEDS: INSULIN REGULAR 100 UNIT/ML SUBCUT SCH ×4 (08:45→21:31)
[2018-09-08] MEDS: ALBUTEROL/IPRATROPIUM 3 ML NEB RESP TX SCH ×3 (09:13→19:40)
[2018-09-08] MEDS: AZITHROMYCIN 250 MG TABLET PO SCH (09:40)
[2018-09-08] MEDS: DILTIAZEM CD 240 MG CAPSULE PO SCH (09:40)
[2018-09-08] MEDS: METOPROLOL SUCCINATE XL 50 MG TABLET PO SCH (09:40)
[2018-09-08] MEDS: ASPIRIN 325 MG TABLET PO SCH (09:40)
[2018-09-08] MEDS: guaiFENesin/DM ER 600-30 MG TABLET PO SCH ×2 (09:43→21:31)
[2018-09-08 10:26] LABS: Free T4 (Free Thyroxine) 0.33 NG/DL (0.76-1.46)
[2018-09-08 10:35] LABS: Folate 14.6 NG/ML (5.4-24.0)
[2018-09-08] MEDS ORDERED: LEVOTHYROXINE 150 MCG TABLET PO SCH (12:54)
[2018-09-08] MEDS: cefTRIAXone 1,000 MG in SYRINGE 1 EACH IV SCH (13:01)
[2018-09-08] MEDS: ENOXAPARIN 40 MG/0.4 ML SYRINGE SUBCUT SCH (13:03)
[2018-09-08] MEDS: ATORVASTATIN 40 MG TABLET PO SCH (21:31)
[2018-09-08] MEDS ORDERED: LORazepam 1 MG TABLET PO PRN (21:45)
[2018-09-08] MEDS: LORazepam 0.5 MG TABLET PO PRN (21:57)
[2018-09-09] MEDS: guaiFENesin 200 MG/10 ML UDCUP PO PRN ×2 (01:18→21:11)
[2018-09-09] MEDS: LEVOTHYROXINE 150 MCG TABLET PO SCH (05:38)
[2018-09-09] MEDS: LIOTHYRONINE 25 MCG TABLET PO SCH (07:11)
[2018-09-09] MEDS: ALBUTEROL/IPRATROPIUM 3 ML NEB RESP TX SCH ×2 (07:35→19:09)
[2018-09-09] MEDS: METOPROLOL SUCCINATE XL 50 MG TABLET PO SCH (08:48)
[2018-09-09] MEDS: DILTIAZEM CD 240 MG CAPSULE PO SCH (08:48)
[2018-09-09] MEDS: ASPIRIN 325 MG TABLET PO SCH (08:48)
[2018-09-09] MEDS: guaiFENesin/DM ER 600-30 MG TABLET PO SCH ×2 (08:48→21:11)
[2018-09-09] MEDS: AZITHROMYCIN 250 MG TABLET PO SCH (08:49)
[2018-09-09] MEDS: INSULIN REGULAR 100 UNIT/ML SUBCUT SCH ×4 (08:52→21:14)
[2018-09-09] MEDS ORDERED: SKIN HEALING OINT (AQUAPHOR) 50 GM TUBE TOP PRN (14:23)
[2018-09-09] MEDS: cefTRIAXone 1,000 MG in SYRINGE 1 EACH IV SCH (16:43)
[2018-09-09] MEDS: ENOXAPARIN 40 MG/0.4 ML SYRINGE SUBCUT SCH (16:44)
[2018-09-09] MEDS: CYANOCOBALAMIN 1000 MCG/1 ML VIAL IM SCH (18:16)
[2018-09-09] MEDS: ACETAMINOPHEN 325 MG TABLET PO PRN (18:16)
[2018-09-09] MEDS: FOLIC ACID 1 MG TABLET PO SCH (21:11)
[2018-09-09] MEDS: ATORVASTATIN 40 MG TABLET PO SCH (21:11)
[2018-09-09] MEDS: LORazepam 0.5 MG TABLET PO PRN (21:11)
[2018-09-10] MEDS: TEMAZEPAM 15 MG CAPSULE PO SCH ×2 (00:51→21:02)
[2018-09-10] MEDS: LEVOTHYROXINE 150 MCG TABLET PO SCH (05:59)
[2018-09-10] MEDS: LIOTHYRONINE 25 MCG TABLET PO SCH (06:00)
[2018-09-10] MEDS: ALBUTEROL/IPRATROPIUM 3 ML NEB RESP TX SCH ×2 (07:55→20:00)
[2018-09-10] MEDS: INSULIN REGULAR 100 UNIT/ML SUBCUT SCH ×4 (08:03→21:03)
[2018-09-10] MEDS: DILTIAZEM CD 240 MG CAPSULE PO SCH (10:54)
[2018-09-10] MEDS: ASPIRIN 325 MG TABLET PO SCH (10:54)
[2018-09-10] MEDS: FOLIC ACID 1 MG TABLET PO SCH ×2 (10:54→21:02)
[2018-09-10] MEDS: guaiFENesin/DM ER 600-30 MG TABLET PO SCH ×2 (10:54→21:02)
[2018-09-10] MEDS: METOPROLOL SUCCINATE XL 50 MG TABLET PO SCH (10:54)
[2018-09-10] MEDS: AZITHROMYCIN 250 MG TABLET PO SCH (10:54)
[2018-09-10] MEDS: CYANOCOBALAMIN 1000 MCG/1 ML VIAL IM SCH (10:55)
[2018-09-10] MEDS: cefTRIAXone 1,000 MG in SYRINGE 1 EACH IV SCH (12:28)
[2018-09-10] MEDS: ENOXAPARIN 40 MG/0.4 ML SYRINGE SUBCUT SCH (12:31)
[2018-09-10] MEDS: SKIN HEALING OINT (AQUAPHOR) 50 GM TUBE TOP SCH ×3 (15:11→21:05)
[2018-09-10] MEDS: ATORVASTATIN 40 MG TABLET PO SCH (21:02)
[2018-09-11] MEDS: LEVOTHYROXINE 150 MCG TABLET PO SCH (06:24)
[2018-09-11] MEDS: LIOTHYRONINE 25 MCG TABLET PO SCH (06:24)
[2018-09-11] MEDS: ALBUTEROL/IPRATROPIUM 3 ML NEB RESP TX SCH (08:25)
[2018-09-11] MEDS ORDERED: methylPREDNISolone SOD SUC 125 MG/2 ML VIAL IV ONE (08:30)
[2018-09-11] MEDS ORDERED: ALBUTEROL/IPRATROPIUM 3 ML NEB RESP TX ONE (08:30)
[2018-09-11] MEDS: INSULIN REGULAR 100 UNIT/ML SUBCUT SCH ×4 (08:33→21:06)
[2018-09-11] MEDS: DILTIAZEM CD 240 MG CAPSULE PO SCH (08:34)
[2018-09-11] MEDS: AZITHROMYCIN 250 MG TABLET PO SCH (08:34)
[2018-09-11] MEDS: ASPIRIN 325 MG TABLET PO SCH (08:34)
[2018-09-11] MEDS: METOPROLOL SUCCINATE XL 50 MG TABLET PO SCH (08:34)
[2018-09-11] MEDS: FOLIC ACID 1 MG TABLET PO SCH ×2 (08:34→21:05)
[2018-09-11] MEDS: CYANOCOBALAMIN 1000 MCG/1 ML VIAL IM SCH (08:35)
[2018-09-11] MEDS ORDERED: FUROSEMIDE 40 MG/4 ML VIAL IV ONE ×2 (09:04→16:00)
[2018-09-11 09:13] LABS: Basophils # 0.1 10*3/uL (0.0-0.2); Basophils % 0.5 % (0.0-0.8); Eosinophils # 0.1 10*3/uL (0.0-0.87); Eosinophils % 0.5 % (0.00-10.9); Hematocrit 28.1 VOL% (35.7-47.0); Hemoglobin 8.5 GM/DL (12.0-16.0); Lymphocytes # 1.1 10*3/uL (1.4-4.0); Lymphocytes % 11.2 % (21.3-54.2); Mean Corpuscular HGB Conc 30.2 GM/DL (32-36); Mean Corpuscular Hemoglobin 27 PG (27-34); Mean Corpuscular Volume 90.6 FL (87-102); Mean Platelet Volume 9.2 FL (9.6-12.0); Monocytes # 0.8 10*3/uL (0.11-0.8); Monocytes % 7.9 % (1.7-12.7); NRBC # 0.03 10*3/uL; Neutrophils # 7.6 10*3/uL (1.4-7.4); Neutrophils % 78.9 % (38.7-73.9); Platelet Count 276 T/CUMM (130-400); Red Cell Distribution Width 17.9 % (9.3-17.3); White Blood Count 9.7 T/CUMM (4-12)
[2018-09-11 09:34] LABS: Calcium 8.5 MG/DL (8.5-10.1); Osmolality,Calculated 276.8 MOS/KG (273-304); Potassium 4.4 MMOL/L (3.5-5.1)
[2018-09-11] MEDS: guaiFENesin/DM ER 600-30 MG TABLET PO SCH ×2 (10:03→21:05)
[2018-09-11] MEDS: SKIN HEALING OINT (AQUAPHOR) 50 GM TUBE TOP SCH ×3 (10:03→21:07)
[2018-09-11] MEDS: ACETAMINOPHEN 325 MG TABLET PO PRN ×2 (12:19→23:47)
[2018-09-11] MEDS: ENOXAPARIN 40 MG/0.4 ML SYRINGE SUBCUT SCH (14:35)
[2018-09-11] MEDS: cefTRIAXone 1,000 MG in SYRINGE 1 EACH IV SCH (14:35)
[2018-09-11] MEDS ORDERED: LORazepam 1 MG TABLET PO PRN (14:49)
[2018-09-11] MEDS: LORazepam 0.5 MG TABLET PO PRN ×2 (16:42→23:42)
[2018-09-11] MEDS: ATORVASTATIN 40 MG TABLET PO SCH (21:05)
[2018-09-11] MEDS: TEMAZEPAM 15 MG CAPSULE PO SCH (21:05)
[2018-09-11] MEDS: guaiFENesin 200 MG/10 ML UDCUP PO PRN (22:28)
[2018-09-12] MEDS: LEVOTHYROXINE 150 MCG TABLET PO SCH (06:20)
[2018-09-12 06:48] LABS: PT Patient Result 11.2 SECS
[2018-09-12 07:02] LABS: Calcium 8.3 MG/DL (8.5-10.1); Osmolality,Calculated 283.8 MOS/KG (273-304); Potassium 3.8 MMOL/L (3.5-5.1)
[2018-09-12] MEDS: INSULIN REGULAR 100 UNIT/ML SUBCUT SCH ×4 (08:00→20:50)
[2018-09-12] MEDS ORDERED: FUROSEMIDE 40 MG/4 ML VIAL IV ONE (08:21)
[2018-09-12] MEDS ORDERED: POTASSIUM CHLORIDE 20 MEQ TABLET PO ONE (08:21)
[2018-09-12] MEDS: METOPROLOL SUCCINATE XL 50 MG TABLET PO SCH (10:11)
[2018-09-12] MEDS: ASPIRIN 325 MG TABLET PO SCH (10:11)
[2018-09-12] MEDS: guaiFENesin/DM ER 600-30 MG TABLET PO SCH (10:11)
[2018-09-12] MEDS: DILTIAZEM CD 240 MG CAPSULE PO SCH (10:11)
[2018-09-12] MEDS: SKIN HEALING OINT (AQUAPHOR) 50 GM TUBE TOP SCH ×3 (10:12→20:50)
[2018-09-12] MEDS: FOLIC ACID 1 MG TABLET PO SCH ×2 (10:12→20:50)
[2018-09-12 15:53] LABS: LDH,Body Fluid 112 U/L; Total Protein,Body Fluid < 2.0 G/DL
[2018-09-12 15:56] LABS: Lymphocytes,Pleural Fluid 69 %; Monocytes,Pleural Fluid 7 %; Neutrophils,Pleural Fluid 24 %; RBC,Pleural Fluid 3857 T/CUMM
[2018-09-12] MEDS: ENOXAPARIN 40 MG/0.4 ML SYRINGE SUBCUT SCH (17:32)
[2018-09-12] MEDS: ATORVASTATIN 40 MG TABLET PO SCH (20:50)
[2018-09-12] MEDS: TEMAZEPAM 15 MG CAPSULE PO SCH (20:50)
[2018-09-13] MEDS: LEVOTHYROXINE 150 MCG TABLET PO SCH (06:32)
[2018-09-13 06:35] LABS: Basophils % 0.3 % (0.0-0.8); Eosinophils # 0.1 10*3/uL (0.0-0.87); Eosinophils % 1.2 % (0.00-10.9); Hematocrit 27.6 VOL% (35.7-47.0); Hemoglobin 8.6 GM/DL (12.0-16.0); Immature Granulocytes % 0.5 %; Immature Granulocytes Absolute 0.06 #; Lymphocytes # 1.9 10*3/uL (1.4-4.0); Lymphocytes % 16.4 % (21.3-54.2); Mean Corpuscular HGB Conc 31.2 GM/DL (32-36); Mean Corpuscular Hemoglobin 28 PG (27-34); Mean Corpuscular Volume 89.9 FL (87-102); Mean Platelet Volume 9.5 FL (9.6-12.0); Monocytes # 0.7 10*3/uL (0.11-0.8); Monocytes % 5.8 % (1.7-12.7); NRBC # 0.02 10*3/uL; Neutrophils # 8.6 10*3/uL (1.4-7.4); Neutrophils % 75.8 % (38.7-73.9); Platelet Count 359 T/CUMM (130-400); Red Blood Count 3.07 MC/CUMM (3.8-5.5); Red Cell Distribution Width 18.1 % (9.3-17.3); White Blood Count 11.3 T/CUMM (4-12)
[2018-09-13 06:50] LABS: Calcium 8.5 MG/DL (8.5-10.1); Osmolality,Calculated 285.5 MOS/KG (273-304)
[2018-09-13] MEDS: INSULIN REGULAR 100 UNIT/ML SUBCUT SCH ×4 (08:00→22:40)
[2018-09-13] MEDS: DILTIAZEM CD 240 MG CAPSULE PO SCH (10:05)
[2018-09-13] MEDS: LORazepam 0.5 MG TABLET PO PRN (10:05)
[2018-09-13] MEDS: FOLIC ACID 1 MG TABLET PO SCH ×2 (10:05→21:05)
[2018-09-13] MEDS: METOPROLOL SUCCINATE XL 50 MG TABLET PO SCH (10:05)
[2018-09-13] MEDS: SKIN HEALING OINT (AQUAPHOR) 50 GM TUBE TOP SCH ×3 (10:06→21:06)
[2018-09-13] MEDS: ASPIRIN 325 MG TABLET PO SCH (10:06)
[2018-09-13] MEDS: ENOXAPARIN 40 MG/0.4 ML SYRINGE SUBCUT SCH (16:49)
[2018-09-13] MEDS ORDERED: FUROSEMIDE 40 MG/4 ML VIAL IV ONE (17:27)
[2018-09-13] MEDS: TEMAZEPAM 15 MG CAPSULE PO SCH (21:05)
[2018-09-13] MEDS: ATORVASTATIN 40 MG TABLET PO SCH (21:05)
[2018-09-14] MEDS: ACETAMINOPHEN 325 MG TABLET PO PRN (04:42)
[2018-09-14] MEDS: LEVOTHYROXINE 150 MCG TABLET PO SCH (05:32)
[2018-09-14 06:56] LABS: Calcium 8.6 MG/DL (8.5-10.1); Potassium 3.5 MMOL/L (3.5-5.1)
[2018-09-14] MEDS: ASPIRIN 325 MG TABLET PO SCH (09:39)
[2018-09-14] MEDS: SKIN HEALING OINT (AQUAPHOR) 50 GM TUBE TOP SCH ×3 (09:39→20:31)
[2018-09-14] MEDS: FOLIC ACID 1 MG TABLET PO SCH ×2 (09:39→20:30)
[2018-09-14] MEDS: DILTIAZEM CD 240 MG CAPSULE PO SCH (09:39)
[2018-09-14] MEDS: METOPROLOL SUCCINATE XL 50 MG TABLET PO SCH (09:39)
[2018-09-14] MEDS: LORazepam 0.5 MG TABLET PO PRN (09:43)
[2018-09-14] MEDS: INSULIN REGULAR 100 UNIT/ML SUBCUT SCH ×4 (09:48→20:28)
[2018-09-14] MEDS: ENOXAPARIN 40 MG/0.4 ML SYRINGE SUBCUT SCH (13:22)
[2018-09-14] MEDS: LISINOPRIL 5 MG TABLET PO SCH (13:22)
[2018-09-14] MEDS: FUROSEMIDE 80 MG TABLET PO SCH (16:47)
[2018-09-14] MEDS: TEMAZEPAM 15 MG CAPSULE PO SCH (20:28)
[2018-09-14] MEDS: ATORVASTATIN 40 MG TABLET PO SCH (20:28)
[2018-09-15] MEDS: LORazepam 0.5 MG TABLET PO PRN (00:47)
[2018-09-15] MEDS: ACETAMINOPHEN 325 MG TABLET PO PRN (00:47)
[2018-09-15 05:03] LABS: Calcium 8.8 MG/DL (8.5-10.1); Osmolality,Calculated 283.8 MOS/KG (273-304); Potassium 3.5 MMOL/L (3.5-5.1)
[2018-09-15] MEDS: LEVOTHYROXINE 150 MCG TABLET PO SCH (05:53)
[2018-09-15] MEDS ORDERED: APIXABAN 5 MG TABLET PO SCH (09:00)
[2018-09-15 10:04] LABS: Calcium 8.8 MG/DL (8.5-10.1); Potassium 3.6 MMOL/L (3.5-5.1)
[2018-09-15] MEDS: METOPROLOL SUCCINATE XL 50 MG TABLET PO SCH (10:16)
[2018-09-15] MEDS: APIXABAN 2.5 MG TABLET PO SCH ×2 (10:16→21:06)
[2018-09-15] MEDS: FUROSEMIDE 80 MG TABLET PO SCH ×2 (10:16→17:11)
[2018-09-15] MEDS: ASPIRIN EC 81 MG TABLET PO SCH (10:16)
[2018-09-15] MEDS: LISINOPRIL 5 MG TABLET PO SCH (10:16)
[2018-09-15] MEDS: FOLIC ACID 1 MG TABLET PO SCH ×2 (10:16→21:06)
[2018-09-15] MEDS: SKIN HEALING OINT (AQUAPHOR) 50 GM TUBE TOP SCH ×3 (10:17→21:08)
[2018-09-15] MEDS: INSULIN REGULAR 100 UNIT/ML SUBCUT SCH ×4 (10:17→21:06)
[2018-09-15] MEDS: ATORVASTATIN 40 MG TABLET PO SCH (21:06)
[2018-09-15] MEDS: TEMAZEPAM 15 MG CAPSULE PO SCH (21:07)
[2018-09-16] MEDS: LEVOTHYROXINE 150 MCG TABLET PO SCH (05:32)
[2018-09-16 05:56] LABS: Basophils % 0.4 % (0.0-0.8); Eosinophils # 0.2 10*3/uL (0.0-0.87); Eosinophils % 2.1 % (0.00-10.9); Hematocrit 32.8 VOL% (35.7-47.0); Hemoglobin 9.9 GM/DL (12.0-16.0); Immature Granulocytes % 0.3 %; Immature Granulocytes Absolute 0.02 #; Lymphocytes # 1.4 10*3/uL (1.4-4.0); Lymphocytes % 18.3 % (21.3-54.2); Mean Corpuscular HGB Conc 30.2 GM/DL (32-36); Mean Corpuscular Hemoglobin 27 PG (27-34); Mean Corpuscular Volume 89.1 FL (87-102); Monocytes # 0.7 10*3/uL (0.11-0.8); Monocytes % 9.2 % (1.7-12.7); Neutrophils # 5.3 10*3/uL (1.4-7.4); Neutrophils % 69.7 % (38.7-73.9); Platelet Count 331 T/CUMM (130-400); Red Blood Count 3.68 MC/CUMM (3.8-5.5); Red Cell Distribution Width 17.5 % (9.3-17.3); White Blood Count 7.7 T/CUMM (4-12)
[2018-09-16 06:14] LABS: Calcium 8.7 MG/DL (8.5-10.1); Osmolality,Calculated 283.5 MOS/KG (273-304); Potassium 3.3 MMOL/L (3.5-5.1)
[2018-09-16] MEDS ORDERED: POTASSIUM CHLORIDE 20 MEQ TABLET PO ONE (06:58)
[2018-09-16] MEDS: INSULIN REGULAR 100 UNIT/ML SUBCUT SCH ×4 (08:17→21:31)
[2018-09-16] MEDS: ASPIRIN EC 81 MG TABLET PO SCH (09:24)
[2018-09-16] MEDS: APIXABAN 2.5 MG TABLET PO SCH ×2 (09:24→21:31)
[2018-09-16] MEDS: MAGNESIUM OXIDE 400 MG TABLET PO SCH ×2 (09:24→21:31)
[2018-09-16] MEDS: FOLIC ACID 1 MG TABLET PO SCH ×2 (09:24→21:31)
[2018-09-16] MEDS: METOPROLOL SUCCINATE XL 50 MG TABLET PO SCH (09:24)
[2018-09-16] MEDS: SPIRONOLACTONE 25 MG TABLET PO SCH (09:25)
[2018-09-16] MEDS: FUROSEMIDE 40 MG TABLET PO SCH (09:25)
[2018-09-16] MEDS: SKIN HEALING OINT (AQUAPHOR) 50 GM TUBE TOP SCH ×3 (09:25→21:41)
[2018-09-16] MEDS: LISINOPRIL 5 MG TABLET PO SCH (09:25)
[2018-09-16] MEDS: POTASSIUM CHLORIDE 20 MEQ TABLET PO SCH (14:10)
[2018-09-16] MEDS: ATORVASTATIN 40 MG TABLET PO SCH (21:31)
[2018-09-16] MEDS: TEMAZEPAM 15 MG CAPSULE PO SCH (21:39)
[2018-09-17] MEDS: LEVOTHYROXINE 150 MCG TABLET PO SCH (05:37)
[2018-09-17 06:15] LABS: Basophils % 0.4 % (0.0-0.8); Eosinophils # 0.2 10*3/uL (0.0-0.87); Eosinophils % 1.9 % (0.00-10.9); Hemoglobin 9.5 GM/DL (12.0-16.0); Immature Granulocytes % 0.6 %; Immature Granulocytes Absolute 0.05 #; Lymphocytes # 1.4 10*3/uL (1.4-4.0); Mean Corpuscular HGB Conc 30.6 GM/DL (32-36); Mean Corpuscular Hemoglobin 27 PG (27-34); Mean Corpuscular Volume 88.8 FL (87-102); Mean Platelet Volume 9.7 FL (9.6-12.0); Monocytes # 0.8 10*3/uL (0.11-0.8); Monocytes % 8.8 % (1.7-12.7); Neutrophils # 6.5 10*3/uL (1.4-7.4); Neutrophils % 72.3 % (38.7-73.9); Platelet Count 370 T/CUMM (130-400); Red Blood Count 3.49 MC/CUMM (3.8-5.5); Red Cell Distribution Width 17.2 % (9.3-17.3)
[2018-09-17 06:43] LABS: Calcium 8.8 MG/DL (8.5-10.1); Osmolality,Calculated 276.2 MOS/KG (273-304); Potassium 3.9 MMOL/L (3.5-5.1)
[2018-09-17] MEDS: INSULIN REGULAR 100 UNIT/ML SUBCUT SCH ×2 (08:58→14:23)
[2018-09-17] MEDS: FUROSEMIDE 40 MG TABLET PO SCH (10:11)
[2018-09-17] MEDS: MAGNESIUM OXIDE 400 MG TABLET PO SCH (10:11)
[2018-09-17] MEDS: APIXABAN 2.5 MG TABLET PO SCH (10:11)
[2018-09-17] MEDS: ASPIRIN EC 81 MG TABLET PO SCH (10:12)
[2018-09-17] MEDS: LISINOPRIL 5 MG TABLET PO SCH (10:12)
[2018-09-17] MEDS: METOPROLOL SUCCINATE XL 50 MG TABLET PO SCH (10:13)
[2018-09-17] MEDS: FOLIC ACID 1 MG TABLET PO SCH (10:13)
[2018-09-17] MEDS: POTASSIUM CHLORIDE 20 MEQ TABLET PO SCH (10:13)
[2018-09-17] MEDS: SPIRONOLACTONE 25 MG TABLET PO SCH (10:16)
[2018-09-17] MEDS: SKIN HEALING OINT (AQUAPHOR) 50 GM TUBE TOP SCH (10:17)
[2018-09-17 14:02] VITALS: BP 108/72
== END 2018-09-17 13:45 | disposition home health service (06) | DRG 193 ==
LOC: N.ED 09:12 → SUATTDRO 11:52 → N.EDINP 11:52 → N.5E 13:29
PROVIDERS: ADMIT Emergency Medicine; ATTEND Internal Medicine
PROC: IRTHORA (2018-09-12 08:00)

== ENCOUNTER 2018-11-11 15:29 | Inpatient (IN) ==
[2018-11-11] MEDS ORDERED: FUROSEMIDE 40 MG/4 ML VIAL IV STA (16:09)
[2018-11-11 16:16] LABS: Basophils % 0.5 % (0.0-0.8); Eosinophils # 0.1 10*3/uL (0.0-0.87); Eosinophils % 1.2 % (0.00-10.9); Hematocrit 28.2 VOL% (35.7-47.0); Hemoglobin 8.5 GM/DL (12.0-16.0); Immature Granulocytes % 0.4 %; Immature Granulocytes Absolute 0.03 #; Lymphocytes # 0.9 10*3/uL (1.4-4.0); Lymphocytes % 12.2 % (21.3-54.2); Mean Corpuscular HGB Conc 30.1 GM/DL (32-36); Mean Corpuscular Volume 85.2 FL (87-102); Mean Platelet Volume 9.6 FL (9.6-12.0); Monocytes % 9.6 % (1.7-12.7); Neutrophils % 76.1 % (38.7-73.9); Platelet Count 259 T/CUMM (130-400); Red Blood Count 3.31 MC/CUMM (3.8-5.5); Red Cell Distribution Width 16.6 % (9.3-17.3); White Blood Count 7.6 T/CUMM (4-12)
[2018-11-11 16:23] LABS: INR 0.9; PT Patient Result 10.3 SECS; Partial Thromboplastin Time 24.6 SECS (0-40)
[2018-11-11 16:24] LABS: Albumin 3.3 G/DL (3.4-5.0); Calcium 8.3 MG/DL (8.5-10.1); Osmolality,Calculated 272.2 MOS/KG (273-304); Total Protein 6.7 G/DL (6.4-8.3)
[2018-11-11 16:33] LABS: Free T4 (Free Thyroxine) 0.43 NG/DL (0.76-1.46); Thyroid Stimulating Hormone 58.4 uIU/ml (0.358-3.74)
[2018-11-11 17:05] LABS: Apearance,Urine CLEAR (Clear); Bilirubin,Urine Negative (Negative); Blood, Urine Negative (Negative); Glucose,Urine (UA) Negative (Negative); Hyaline Casts,Urine 1 /LPF (0-3); Ketones,Urine Negative (Negative); Mucus,Urine Occasional /LPF (Occasional); Nitrite,Urine Negative (Negative); Protein,Urine Negative; RBC,Urine 1 /HPF (0-4); Squamous Epithelial Cell,Urine Occasional /HPF (0-10); Urine Color Yellow (Yellow); Urine Specific Gravity 1.016 (1.001-1.035); Urine Urobilinogen < 2.0 EU/DL (0.2-1.0); WBC,Urine <1 /HPF (0-6)
[2018-11-11] MEDS ORDERED: ONDANSETRON 4 MG/2 ML VIAL IV PRN (21:17)
[2018-11-11] MEDS ORDERED: MORPHINE 4 MG/1 ML VIAL IV PRN (21:17)
[2018-11-11] MEDS ORDERED: guaiFENesin/DM ER 600-30 MG TABLET PO PRN (21:17)
[2018-11-11] MEDS ORDERED: DEXTROSE 50% 25 GM/50 ML SYRINGE IV PRN (21:17)
[2018-11-11] MEDS ORDERED: ZALEPLON 5 MG CAPSULE PO PRN (21:17)
[2018-11-11] MEDS ORDERED: GLUCAGON 1 MG VIAL IM PRN (21:17)
[2018-11-11] MEDS ORDERED: BISACODYL 5 MG TABLET PO PRN (21:17)
[2018-11-11] MEDS ORDERED: ALBUTEROL/IPRATROPIUM 3 ML NEB RESP TX PRN (21:17)
[2018-11-11] MEDS ORDERED: DOCUSATE SODIUM 100 MG CAPSULE PO PRN (21:17)
[2018-11-11] MEDS: APIXABAN 2.5 MG TABLET PO SCH (21:43)
[2018-11-11] MEDS: HALOPERIDOL 5 MG TABLET PO SCH (21:43)
[2018-11-11] MEDS: FUROSEMIDE 40 MG/4 ML VIAL IV SCH (21:43)
[2018-11-11] MEDS: INSULIN REGULAR 100 UNIT/ML SUBCUT SCH (21:55)
[2018-11-11] MEDS: LEVOFLOXACIN INJ 250 MG in PREMIX 1 EACH IV SCH (22:00)
[2018-11-12 05:35] LABS: Basophils # 0.1 10*3/uL (0.0-0.2); Basophils % 0.6 % (0.0-0.8); Eosinophils # 0.1 10*3/uL (0.0-0.87); Hematocrit 30.8 VOL% (35.7-47.0); Hemoglobin 9.2 GM/DL (12.0-16.0); Immature Granulocytes % 0.4 %; Immature Granulocytes Absolute 0.04 #; Lymphocytes # 1.2 10*3/uL (1.4-4.0); Lymphocytes % 13.7 % (21.3-54.2); Mean Corpuscular HGB Conc 29.9 GM/DL (32-36); Mean Corpuscular Volume 83.9 FL (87-102); Mean Platelet Volume 10.2 FL (9.6-12.0); Monocytes % 7.5 % (1.7-12.7); Neutrophils % 76.8 % (38.7-73.9); Platelet Count 275 T/CUMM (130-400); Red Blood Count 3.67 MC/CUMM (3.8-5.5); Red Cell Distribution Width 16.5 % (9.3-17.3)
[2018-11-12 05:43] LABS: Albumin 3.5 G/DL (3.4-5.0); Bilirubin,Total 1.3 MG/DL (0.2-1.0); Calcium 8.9 MG/DL (8.5-10.1); Osmolality,Calculated 275.1 MOS/KG (273-304); Risk Ratio 1.47; Total Protein 7.3 G/DL (6.4-8.3); VLDL CHOLESTEROL 7.8 MG/DL
[2018-11-12] MEDS: LEVOTHYROXINE 100 MCG TABLET PO SCH (06:40)
[2018-11-12] MEDS: SKIN HEALING OINT (AQUAPHOR) 50 GM TUBE TOP SCH ×4 (06:43→22:34)
[2018-11-12] MEDS: INSULIN REGULAR 100 UNIT/ML SUBCUT SCH ×4 (07:30→22:34)
[2018-11-12] MEDS: APIXABAN 2.5 MG TABLET PO SCH ×2 (09:43→22:35)
[2018-11-12] MEDS: SPIRONOLACTONE 50 MG TABLET PO SCH (09:44)
[2018-11-12] MEDS: DILTIAZEM CD 240 MG CAPSULE PO SCH (09:44)
[2018-11-12] MEDS: METOPROLOL SUCCINATE XL 50 MG TABLET PO SCH (09:44)
[2018-11-12] MEDS: FUROSEMIDE 40 MG/4 ML VIAL IV SCH ×2 (09:44→16:05)
[2018-11-12] MEDS: ASPIRIN EC 81 MG TABLET PO SCH (09:44)
[2018-11-12] MEDS: ATORVASTATIN 40 MG TABLET PO SCH (09:44)
[2018-11-12] MEDS ORDERED: TUBERCULIN SKIN TEST 0.1 ML SYRINGE INTRADERM ONE (10:46)
[2018-11-12] MEDS ORDERED: SODIUM CHLORIDE 0.9% 250 ML IV ONE (15:25)
[2018-11-12] MEDS: LEVOFLOXACIN INJ 250 MG in PREMIX 1 EACH IV SCH (22:35)
[2018-11-12] MEDS: HALOPERIDOL 5 MG TABLET PO SCH (22:35)
[2018-11-13 04:31] LABS: Basophils # 0.1 10*3/uL (0.0-0.2); Basophils % 0.5 % (0.0-0.8); Eosinophils # 0.1 10*3/uL (0.0-0.87); Hematocrit 33.8 VOL% (35.7-47.0); Hemoglobin 10.3 GM/DL (12.0-16.0); Immature Granulocytes % 0.3 %; Immature Granulocytes Absolute 0.03 #; Lymphocytes # 1.6 10*3/uL (1.4-4.0); Lymphocytes % 15.8 % (21.3-54.2); Mean Corpuscular HGB Conc 30.5 GM/DL (32-36); Mean Corpuscular Volume 81.6 FL (87-102); Monocytes % 7.7 % (1.7-12.7); Neutrophils % 74.7 % (38.7-73.9); Platelet Count 331 T/CUMM (130-400); Red Blood Count 4.14 MC/CUMM (3.8-5.5); Red Cell Distribution Width 16.7 % (9.3-17.3); White Blood Count 9.9 T/CUMM (4-12)
[2018-11-13 05:01] LABS: Albumin 3.4 G/DL (3.4-5.0); Bilirubin,Total 1.2 MG/DL (0.2-1.0); Calcium 8.7 MG/DL (8.5-10.1); Osmolality,Calculated 274.5 MOS/KG (273-304); Total Protein 7.1 G/DL (6.4-8.3)
[2018-11-13] MEDS: LEVOTHYROXINE 100 MCG TABLET PO SCH (06:06)
[2018-11-13] MEDS: ATORVASTATIN 40 MG TABLET PO SCH (08:38)
[2018-11-13] MEDS: INSULIN REGULAR 100 UNIT/ML SUBCUT SCH ×4 (08:38→22:30)
[2018-11-13] MEDS: APIXABAN 2.5 MG TABLET PO SCH ×2 (08:38→21:13)
[2018-11-13] MEDS: ASPIRIN EC 81 MG TABLET PO SCH (08:38)
[2018-11-13] MEDS ORDERED: DILTIAZEM CD 180 MG CAPSULE PO SCH (10:42)
[2018-11-13] MEDS ORDERED: SPIRONOLACTONE 25 MG TABLET PO SCH (10:45)
[2018-11-13] MEDS: SKIN HEALING OINT (AQUAPHOR) 50 GM TUBE TOP SCH ×2 (14:23→22:33)
[2018-11-13] MEDS: FUROSEMIDE 40 MG/4 ML VIAL IV SCH (14:26)
[2018-11-13] MEDS: METOPROLOL SUCCINATE XL 50 MG TABLET PO SCH (14:26)
[2018-11-13] MEDS: DILTIAZEM CD 240 MG CAPSULE PO SCH (14:26)
[2018-11-13] MEDS: SPIRONOLACTONE 50 MG TABLET PO SCH (14:26)
[2018-11-13] MEDS: FUROSEMIDE 40 MG TABLET PO SCH (17:25)
[2018-11-13] MEDS: HALOPERIDOL 5 MG TABLET PO SCH (21:14)
[2018-11-13] MEDS: LEVOFLOXACIN INJ 250 MG in PREMIX 1 EACH IV SCH (22:43)
[2018-11-14 05:47] LABS: Basophils # 0.1 10*3/uL (0.0-0.2); Basophils % 0.5 % (0.0-0.8); Eosinophils # 0.1 10*3/uL (0.0-0.87); Eosinophils % 1.1 % (0.00-10.9); Hematocrit 37.5 VOL% (35.7-47.0); Hemoglobin 11.4 GM/DL (12.0-16.0); Immature Granulocytes % 0.3 %; Immature Granulocytes Absolute 0.04 #; Lymphocytes % 17.5 % (21.3-54.2); Mean Corpuscular HGB Conc 30.4 GM/DL (32-36); Mean Corpuscular Volume 83.3 FL (87-102); Monocytes % 8.5 % (1.7-12.7); Neutrophils % 72.1 % (38.7-73.9); Platelet Count 366 T/CUMM (130-400); Red Cell Distribution Width 16.8 % (9.3-17.3); White Blood Count 11.6 T/CUMM (4-12)
[2018-11-14] MEDS: LEVOTHYROXINE 100 MCG TABLET PO SCH (06:18)
[2018-11-14] MEDS: METOPROLOL SUCCINATE XL 25 MG TABLET PO SCH (09:10)
[2018-11-14] MEDS: ASPIRIN EC 81 MG TABLET PO SCH (09:10)
[2018-11-14] MEDS: ATORVASTATIN 40 MG TABLET PO SCH (09:10)
[2018-11-14] MEDS: FUROSEMIDE 40 MG TABLET PO SCH (09:10)
[2018-11-14] MEDS: APIXABAN 2.5 MG TABLET PO SCH ×2 (09:10→21:05)
[2018-11-14] MEDS: INSULIN REGULAR 100 UNIT/ML SUBCUT SCH ×4 (09:13→20:36)
[2018-11-14] MEDS: SKIN HEALING OINT (AQUAPHOR) 50 GM TUBE TOP SCH ×3 (09:13→21:05)
[2018-11-14 09:33] LABS: Calcium 8.5 MG/DL (8.5-10.1); Osmolality,Calculated 273.7 MOS/KG (273-304)
[2018-11-14] MEDS ORDERED: LEVOFLOXACIN 250 MG TABLET PO SCH (14:23)
[2018-11-14 15:08] LABS: Bilirubin,Direct 0.2 MG/DL (0.0-0.20); Bilirubin,Indirect 0.6 MG/DL (0.0-1.0); Bilirubin,Total 0.8 MG/DL (0.2-1.0); Total Protein 6.5 G/DL (6.4-8.3)
[2018-11-14 16:12] LABS: Hepatitis B Core IgM Quant < 0.05 Index; Hepatitis B Surface Ag Quant < 0.10 Index; Hepatitis B Surface Ag Result Negative (Negative); Hepatitis C Virus Ab Quant 0.05 Index; Hepatitis C Virus Ab Result Negative (Negative)
[2018-11-14] MEDS: HALOPERIDOL 5 MG TABLET PO SCH (21:05)
[2018-11-15] MEDS: LEVOTHYROXINE 100 MCG TABLET PO SCH (05:07)
[2018-11-15 06:21] LABS: Calcium 8.6 MG/DL (8.5-10.1); Osmolality,Calculated 275.5 MOS/KG (273-304)
[2018-11-15 06:35] LABS: Basophils # 0.1 10*3/uL (0.0-0.2); Basophils % 0.6 % (0.0-0.8); Eosinophils # 0.1 10*3/uL (0.0-0.87); Eosinophils % 1.2 % (0.00-10.9); Hematocrit 36.6 VOL% (35.7-47.0); Hemoglobin 11.1 GM/DL (12.0-16.0); Immature Granulocytes % 0.4 %; Immature Granulocytes Absolute 0.03 #; Lymphocytes % 24.3 % (21.3-54.2); Mean Corpuscular HGB Conc 30.3 GM/DL (32-36); Mean Corpuscular Volume 82.1 FL (87-102); Mean Platelet Volume 9.3 FL (9.6-12.0); Monocytes % 8.5 % (1.7-12.7); Platelet Count 394 T/CUMM (130-400); Red Blood Count 4.46 MC/CUMM (3.8-5.5); Red Cell Distribution Width 16.5 % (9.3-17.3); White Blood Count 8.2 T/CUMM (4-12)
[2018-11-15] MEDS: ATORVASTATIN 40 MG TABLET PO SCH (08:53)
[2018-11-15] MEDS: ASPIRIN EC 81 MG TABLET PO SCH (08:53)
[2018-11-15] MEDS: METOPROLOL SUCCINATE XL 25 MG TABLET PO SCH (08:53)
[2018-11-15] MEDS: APIXABAN 2.5 MG TABLET PO SCH (08:53)
[2018-11-15] MEDS: INSULIN REGULAR 100 UNIT/ML SUBCUT SCH ×2 (08:54→13:15)
[2018-11-15] MEDS ORDERED: FUROSEMIDE 40 MG TABLET PO SCH (09:00)
[2018-11-15] MEDS ORDERED: DILTIAZEM CD 120 MG CAPSULE PO SCH (09:00)
[2018-11-15] MEDS ORDERED: LEVOFLOXACIN 250 MG TABLET PO SCH (09:00)
[2018-11-15 12:06] VITALS: BP 95/79
== END 2018-11-15 13:35 | DRG 291 ==
LOC: N.ED 15:29 → SUATTDRO 19:41 → N.EDINP 19:41 → N.TELEN 20:17
PROVIDERS: ADMIT Internal Medicine; ATTEND Internal Medicine

== ENCOUNTER 2019-12-20 19:19 | Inpatient (IN) ==
[2019-12-20] MEDS ORDERED: FUROSEMIDE 40 MG/4 ML VIAL IV STA (19:58)
[2019-12-20] MEDS ORDERED: ONDANSETRON 4 MG/2 ML VIAL IV STA (19:58)
[2019-12-20] MEDS ORDERED: AZITHROMYCIN INJ 500 MG in SODIUM CHLORIDE 0.9% 250 ML IV STA (19:58)
[2019-12-20 20:45] LABS: Basophils % 0.3 % (0.0-0.8); Eosinophils # 0.1 10*3/uL (0.0-0.87); Eosinophils % 0.9 % (0.00-10.9); Hematocrit 37.9 VOL% (35.7-47.0); Hemoglobin 11.9 GM/DL (12.0-16.0); Immature Granulocytes % 0.3 %; Immature Granulocytes Absolute 0.04 #; Lymphocytes # 1.4 10*3/uL (1.4-4.0); Lymphocytes % 10.8 % (21.3-54.2); Mean Corpuscular HGB Conc 31.4 GM/DL (32-36); Mean Corpuscular Volume 90.2 FL (87-102); Mean Platelet Volume 9.9 FL (9.6-12.0); Monocytes % 7.7 % (1.7-12.7); Platelet Count 287 T/CUMM (130-400); Red Cell Distribution Width 15.3 % (9.3-17.3); White Blood Count 12.7 T/CUMM (4-12)
[2019-12-20 20:56] LABS: INR 1.1; PT Patient Result 11.4 SECS (9.8-11.9); Partial Thromboplastin Time 28.3 SECS (23.9-33.8)
[2019-12-20 20:56] LABS: Apearance,Urine CLEAR (Clear); Bilirubin,Urine Negative (Negative); Blood, Urine Negative (Negative); Glucose,Urine (UA) Negative (Negative); Ketones,Urine Negative (Negative); Mucus,Urine Occasional /LPF (Occasional); Nitrite,Urine Negative (Negative); Protein,Urine Negative; RBC,Urine 1 /HPF (0-4); Urine Color Colorless (Yellow); Urine Specific Gravity 1.005 (1.001-1.035); Urine Urobilinogen < 2.0 EU/DL (0.2-1.0)
[2019-12-20 21:00] LABS: Albumin 3.5 G/DL (3.4-5.0); Bilirubin,Total 1.1 MG/DL (0.2-1.0); CKMB % 3.5 %; Ferritin 32.6 ng/ml (8-252); Osmolality,Calculated 280.8 MOS/KG (273-304); Total Protein 6.7 G/DL (6.4-8.3); Troponin I 0.029 NG/ML (0.00-0.045)
[2019-12-20] MEDS ORDERED: ONDANSETRON 4 MG/2 ML VIAL IV PRN (21:28)
[2019-12-20] MEDS ORDERED: MAGNESIUM SULF RIDER 4 GM in PREMIX 1 EACH IV PRN (21:28)
[2019-12-20] MEDS ORDERED: ACETAMINOPHEN 325 MG TABLET PO PRN (21:28)
[2019-12-20] MEDS ORDERED: DEXTROSE 10% 250 ML BAG IV PRN (21:28)
[2019-12-20] MEDS ORDERED: MAGNESIUM SULF RIDER 2 GM in PREMIX 1 EACH IV PRN (21:28)
[2019-12-20] MEDS ORDERED: GLUCAGON 1 MG VIAL IM PRN (21:28)
[2019-12-21] MEDS ORDERED: GLUCAGON 1 MG VIAL IM PRN (00:08)
[2019-12-21] MEDS ORDERED: DEXTROSE 50% 25 GM/50 ML SYRINGE IV PRN (00:08)
[2019-12-21] MEDS: HALOPERIDOL 5 MG TABLET PO SCH ×2 (00:40→20:00)
[2019-12-21] MEDS: BENZONATATE 100 MG CAPSULE PO PRN ×3 (00:40→21:45)
[2019-12-21] MEDS: LEVOTHYROXINE 88 MCG TABLET PO SCH (05:21)
[2019-12-21 08:24] LABS: Basophils % 0.4 % (0.0-0.8); Eosinophils # 0.1 10*3/uL (0.0-0.87); Eosinophils % 1.1 % (0.00-10.9); Hematocrit 35.8 VOL% (35.7-47.0); Hemoglobin 11.1 GM/DL (12.0-16.0); Immature Granulocytes % 0.6 %; Immature Granulocytes Absolute 0.05 #; Lymphocytes % 12.7 % (21.3-54.2); Mean Platelet Volume 9.3 FL (9.6-12.0); Monocytes % 8.3 % (1.7-12.7); Neutrophils % 76.9 % (38.7-73.9); Platelet Count 213 T/CUMM (130-400); Red Blood Count 3.89 MC/CUMM (3.8-5.5); Red Cell Distribution Width 15.2 % (9.3-17.3)
[2019-12-21 08:41] LABS: Bilirubin,Total 1.5 MG/DL (0.2-1.0); Calcium 8.6 MG/DL (8.5-10.1); Ferritin 31.5 ng/ml (8-252); Osmolality,Calculated 279.7 MOS/KG (273-304); Total Protein 5.6 G/DL (6.4-8.3)
[2019-12-21] MEDS: MAGNESIUM OXIDE 400 MG TABLET PO SCH (09:08)
[2019-12-21] MEDS: PANTOPRAZOLE 40 MG TABLET PO SCH (09:08)
[2019-12-21] MEDS: ZINC SULFATE 220 MG CAPSULE PO SCH (09:08)
[2019-12-21] MEDS: buPROPion 75 MG TABLET PO SCH (09:08)
[2019-12-21] MEDS: INSULIN REGULAR 100 UNIT/ML SUBCUT SCH ×4 (09:08→20:57)
[2019-12-21] MEDS: METOPROLOL SUCCINATE XL 50 MG TABLET PO SCH (09:08)
[2019-12-21] MEDS: DOCUSATE SODIUM 100 MG CAPSULE PO SCH ×2 (09:08→20:00)
[2019-12-21] MEDS: APIXABAN 2.5 MG TABLET PO SCH ×2 (09:08→20:00)
[2019-12-21] MEDS: ASPIRIN EC 81 MG TABLET PO SCH (09:09)
[2019-12-21] MEDS: POTASSIUM CHLORIDE 20 MEQ TABLET PO SCH (09:09)
[2019-12-21] MEDS: CHOLECALCIFEROL 1,000 UNIT TABLET PO SCH (09:09)
[2019-12-21] MEDS: FUROSEMIDE 40 MG/4 ML VIAL IV SCH ×2 (09:09→16:26)
[2019-12-21] MEDS: CALCIUM (CARBONATE)/VITAMIN D 500 MG-200 UNIT TABLET PO SCH (09:09)
[2019-12-21] MEDS: lisinopriL 10 MG TABLET PO SCH (09:09)
[2019-12-21] MEDS: DILTIAZEM CD 120 MG CAPSULE PO SCH (09:09)
[2019-12-21] MEDS ORDERED: LEVOFLOXACIN INJ 750 MG in PREMIX 1 EACH IV SCH (12:00)
[2019-12-21] MEDS: POTASSIUM CHLORIDE 20 MEQ TABLET PO PRN ×3 (12:35→16:32)
[2019-12-21] MEDS: ATORVASTATIN 40 MG TABLET PO SCH (20:00)
[2019-12-21] MEDS: diphenhydrAMINE CAP 25 MG CAPSULE PO PRN (23:45)
[2019-12-21] MEDS: guaiFENesin 200 MG/10 ML UDCUP PO PRN (23:45)
[2019-12-22] MEDS: guaiFENesin 200 MG/10 ML UDCUP PO PRN ×2 (04:44→20:45)
[2019-12-22] MEDS: LEVOTHYROXINE 88 MCG TABLET PO SCH (05:35)
[2019-12-22] MEDS: DILTIAZEM CD 120 MG CAPSULE PO SCH (09:12)
[2019-12-22] MEDS: METOPROLOL SUCCINATE XL 50 MG TABLET PO SCH (09:12)
[2019-12-22] MEDS: ASPIRIN EC 81 MG TABLET PO SCH (09:12)
[2019-12-22] MEDS: INSULIN REGULAR 100 UNIT/ML SUBCUT SCH ×4 (09:12→20:39)
[2019-12-22] MEDS: DOCUSATE SODIUM 100 MG CAPSULE PO SCH ×2 (09:12→20:39)
[2019-12-22] MEDS: CALCIUM (CARBONATE)/VITAMIN D 500 MG-200 UNIT TABLET PO SCH (09:12)
[2019-12-22] MEDS: APIXABAN 2.5 MG TABLET PO SCH ×2 (09:12→20:39)
[2019-12-22] MEDS: buPROPion 75 MG TABLET PO SCH (09:13)
[2019-12-22] MEDS: lisinopriL 10 MG TABLET PO SCH (09:13)
[2019-12-22] MEDS: POTASSIUM CHLORIDE 20 MEQ TABLET PO SCH (09:13)
[2019-12-22] MEDS: FUROSEMIDE 40 MG/4 ML VIAL IV SCH ×2 (09:13→16:49)
[2019-12-22] MEDS: PANTOPRAZOLE 40 MG TABLET PO SCH (09:13)
[2019-12-22] MEDS: MAGNESIUM OXIDE 400 MG TABLET PO SCH (09:13)
[2019-12-22] MEDS: CHOLECALCIFEROL 1,000 UNIT TABLET PO SCH (09:13)
[2019-12-22] MEDS ORDERED: HALOPERIDOL 5 MG/ML AMP IM ONE (19:41)
[2019-12-22] MEDS: ATORVASTATIN 40 MG TABLET PO SCH (20:39)
[2019-12-22] MEDS: HALOPERIDOL 5 MG TABLET PO SCH (20:39)
[2019-12-22] MEDS: diphenhydrAMINE CAP 25 MG CAPSULE PO PRN (20:45)
[2019-12-22] MEDS: BENZONATATE 100 MG CAPSULE PO PRN (20:45)
[2019-12-23] MEDS: guaiFENesin 200 MG/10 ML UDCUP PO PRN (04:49)
[2019-12-23] MEDS: BENZONATATE 100 MG CAPSULE PO PRN (04:49)
[2019-12-23] MEDS: LEVOTHYROXINE 88 MCG TABLET PO SCH (05:16)
[2019-12-23 06:08] LABS: Basophils % 0.5 % (0.0-0.8); Eosinophils # 0.2 10*3/uL (0.0-0.87); Eosinophils % 2.6 % (0.00-10.9); Hematocrit 36.7 VOL% (35.7-47.0); Hemoglobin 11.3 GM/DL (12.0-16.0); Immature Granulocytes % 0.2 %; Immature Granulocytes Absolute 0.02 #; Lymphocytes # 1.3 10*3/uL (1.4-4.0); Lymphocytes % 15.7 % (21.3-54.2); Mean Corpuscular HGB Conc 30.8 GM/DL (32-36); Mean Corpuscular Volume 91.5 FL (87-102); Mean Platelet Volume 9.2 FL (9.6-12.0); Monocytes % 10.2 % (1.7-12.7); Neutrophils % 70.8 % (38.7-73.9); Platelet Count 204 T/CUMM (130-400); Red Blood Count 4.01 MC/CUMM (3.8-5.5); Red Cell Distribution Width 15.2 % (9.3-17.3); White Blood Count 8.1 T/CUMM (4-12)
[2019-12-23 06:28] LABS: Calcium 8.4 MG/DL (8.5-10.1)
[2019-12-23] MEDS: INSULIN REGULAR 100 UNIT/ML SUBCUT SCH ×4 (07:54→21:00)
[2019-12-23] MEDS: FUROSEMIDE 40 MG/4 ML VIAL IV SCH ×2 (08:50→18:36)
[2019-12-23] MEDS: CALCIUM (CARBONATE)/VITAMIN D 500 MG-200 UNIT TABLET PO SCH (08:50)
[2019-12-23] MEDS: LEVOFLOXACIN 750 MG TABLET PO SCH (08:51)
[2019-12-23] MEDS: CHOLECALCIFEROL 1,000 UNIT TABLET PO SCH (08:51)
[2019-12-23] MEDS: DOCUSATE SODIUM 100 MG CAPSULE PO SCH ×2 (08:51→20:53)
[2019-12-23] MEDS: POTASSIUM CHLORIDE 20 MEQ TABLET PO SCH (08:51)
[2019-12-23] MEDS: DILTIAZEM CD 120 MG CAPSULE PO SCH (08:52)
[2019-12-23] MEDS: MAGNESIUM OXIDE 400 MG TABLET PO SCH (08:52)
[2019-12-23] MEDS: ZINC SULFATE 220 MG CAPSULE PO SCH (08:52)
[2019-12-23] MEDS: lisinopriL 10 MG TABLET PO SCH (08:52)
[2019-12-23] MEDS: METOPROLOL SUCCINATE XL 50 MG TABLET PO SCH (08:52)
[2019-12-23] MEDS: ASPIRIN EC 81 MG TABLET PO SCH (08:53)
[2019-12-23] MEDS: POLYETHYLENE GLYCOL POWDER 17 GM PACK PO SCH (08:53)
[2019-12-23] MEDS: APIXABAN 2.5 MG TABLET PO SCH ×2 (08:53→20:52)
[2019-12-23] MEDS: buPROPion 75 MG TABLET PO SCH (08:53)
[2019-12-23] MEDS: ATORVASTATIN 40 MG TABLET PO SCH (20:53)
[2019-12-23] MEDS: HALOPERIDOL 5 MG TABLET PO SCH (20:53)
[2019-12-24 05:44] LABS: Basophils % 0.3 % (0.0-0.8); Eosinophils # 0.1 10*3/uL (0.0-0.87); Eosinophils % 0.8 % (0.00-10.9); Hematocrit 39.5 VOL% (35.7-47.0); Hemoglobin 12.6 GM/DL (12.0-16.0); Immature Granulocytes % 0.3 %; Immature Granulocytes Absolute 0.03 #; Lymphocytes % 9.1 % (21.3-54.2); Mean Corpuscular HGB Conc 31.9 GM/DL (32-36); Mean Corpuscular Volume 89.4 FL (87-102); Mean Platelet Volume 9.5 FL (9.6-12.0); Monocytes % 7.2 % (1.7-12.7); Neutrophils % 82.3 % (38.7-73.9); Platelet Count 238 T/CUMM (130-400); Red Blood Count 4.42 MC/CUMM (3.8-5.5); Red Cell Distribution Width 15.1 % (9.3-17.3)
[2019-12-24 06:17] LABS: Calcium 8.7 MG/DL (8.5-10.1)
[2019-12-24] MEDS: LEVOTHYROXINE 88 MCG TABLET PO SCH (06:20)
[2019-12-24] MEDS: INSULIN REGULAR 100 UNIT/ML SUBCUT SCH ×4 (08:51→21:23)
[2019-12-24] MEDS: DILTIAZEM CD 120 MG CAPSULE PO SCH (08:54)
[2019-12-24] MEDS: FUROSEMIDE 40 MG/4 ML VIAL IV SCH ×2 (08:54→17:08)
[2019-12-24] MEDS: CALCIUM (CARBONATE)/VITAMIN D 500 MG-200 UNIT TABLET PO SCH (08:54)
[2019-12-24] MEDS: MAGNESIUM OXIDE 400 MG TABLET PO SCH (08:54)
[2019-12-24] MEDS: CHOLECALCIFEROL 1,000 UNIT TABLET PO SCH (08:54)
[2019-12-24] MEDS: DOCUSATE SODIUM 100 MG CAPSULE PO SCH ×2 (08:54→21:22)
[2019-12-24] MEDS: buPROPion 75 MG TABLET PO SCH (08:55)
[2019-12-24] MEDS: APIXABAN 2.5 MG TABLET PO SCH ×2 (08:55→21:22)
[2019-12-24] MEDS: lisinopriL 10 MG TABLET PO SCH (08:55)
[2019-12-24] MEDS: METOPROLOL SUCCINATE XL 50 MG TABLET PO SCH (08:55)
[2019-12-24] MEDS: ASPIRIN EC 81 MG TABLET PO SCH (08:55)
[2019-12-24] MEDS: POTASSIUM CHLORIDE 20 MEQ TABLET PO SCH (09:10)
[2019-12-24] MEDS: POTASSIUM CHLORIDE 20 MEQ TABLET PO PRN (09:11)
[2019-12-24] MEDS: ATORVASTATIN 40 MG TABLET PO SCH (21:22)
[2019-12-24] MEDS: HALOPERIDOL 5 MG TABLET PO SCH (21:23)
[2019-12-25 05:58] LABS: Basophils % 0.4 % (0.0-0.8); Eosinophils # 0.2 10*3/uL (0.0-0.87); Hemoglobin 12.3 GM/DL (12.0-16.0); Immature Granulocytes % 0.4 %; Immature Granulocytes Absolute 0.04 #; Lymphocytes # 1.3 10*3/uL (1.4-4.0); Lymphocytes % 13.7 % (21.3-54.2); Mean Corpuscular HGB Conc 31.5 GM/DL (32-36); Mean Corpuscular Volume 88.4 FL (87-102); Mean Platelet Volume 9.5 FL (9.6-12.0); Monocytes % 10.5 % (1.7-12.7); Platelet Count 242 T/CUMM (130-400); Red Blood Count 4.41 MC/CUMM (3.8-5.5); Red Cell Distribution Width 15.3 % (9.3-17.3); White Blood Count 9.7 T/CUMM (4-12)
[2019-12-25] MEDS: LEVOTHYROXINE 88 MCG TABLET PO SCH (06:11)
[2019-12-25 06:25] LABS: Calcium 8.5 MG/DL (8.5-10.1); Osmolality,Calculated 278.8 MOS/KG (273-304)
[2019-12-25] MEDS: INSULIN REGULAR 100 UNIT/ML SUBCUT SCH ×2 (08:07→11:32)
[2019-12-25] MEDS: FUROSEMIDE 40 MG/4 ML VIAL IV SCH (09:20)
[2019-12-25] MEDS: DOCUSATE SODIUM 100 MG CAPSULE PO SCH (09:20)
[2019-12-25] MEDS: CHOLECALCIFEROL 1,000 UNIT TABLET PO SCH (09:20)
[2019-12-25] MEDS: POLYETHYLENE GLYCOL POWDER 17 GM PACK PO SCH (09:20)
[2019-12-25] MEDS: POTASSIUM CHLORIDE 20 MEQ TABLET PO SCH (09:21)
[2019-12-25] MEDS: LEVOFLOXACIN 750 MG TABLET PO SCH (09:21)
[2019-12-25] MEDS: METOPROLOL SUCCINATE XL 50 MG TABLET PO SCH (09:21)
[2019-12-25] MEDS: ZINC SULFATE 220 MG CAPSULE PO SCH (09:21)
[2019-12-25] MEDS: CALCIUM (CARBONATE)/VITAMIN D 500 MG-200 UNIT TABLET PO SCH (09:25)
[2019-12-25] MEDS: MAGNESIUM OXIDE 400 MG TABLET PO SCH (09:25)
[2019-12-25] MEDS: APIXABAN 2.5 MG TABLET PO SCH (09:25)
[2019-12-25] MEDS: BENZONATATE 100 MG CAPSULE PO PRN (09:25)
[2019-12-25] MEDS: DILTIAZEM CD 120 MG CAPSULE PO SCH (09:25)
[2019-12-25] MEDS: ASPIRIN EC 81 MG TABLET PO SCH (09:26)
[2019-12-25] MEDS: lisinopriL 10 MG TABLET PO SCH (09:26)
[2019-12-25] MEDS: buPROPion 75 MG TABLET PO SCH (09:27)
[2019-12-25 12:02] VITALS: BP 99/62
[2019-12-26] MEDS ORDERED: lisinopriL 5 MG TABLET PO SCH (09:00)
== END 2019-12-25 14:17 | DRG 193 ==
LOC: EDBD → EDUNIT# → N.ED 19:19 → SUATTDRO 21:28 → N.EDINP 21:28 → N.2E 12-21 00:16
PROVIDERS: ADMIT Internal Medicine; ATTEND Hospitalist